=== PATIENT | male | born 1945 | race Caucasian/White ===

== ENCOUNTER 2017-04-12 13:20 | Inpatient (IN) | payer OTHER, MEDICARE ==
[~2017-04-12] VITALS: Ht 170.2 cm; Wt 83.0 kg
--- NOTE | 2017-04-12 13:50 | EMERGENCY ROOM VISIT NOTE ---
History Report prepared by Aquiles: Cesar Brennan Under the Supervision of: Dr. Toni Mantilla M.D. First contact with patient: 13:31 Chief Complaint: STROKE SYMPTOMS Stated Complaint: POSSIBLE STROKE History of Present Illness The patient is a 71 year old male who presents to the Emergency Room with complaints of persistent stroke symptoms that started 2 weeks ago. He says that he was painting a month ago, and reached for something with his left arm that he could not reach, and he felt something snap on his left shoulder. The patient states that he has had left arm and shoulder pain ever since the injury. He adds that he has had some left hand swelling. The patient notes that 2 weeks after the incident, his left arm and finger started to "not work right" . He states that he cannot even straighten his fingers on his left hand. The patient says that he was seen by Dr. Godinez of neurology, and Dr. Godinez says that nothing was wrong with the nerves, but something else may be going on due to the stroke-like symptoms. The patient notes that he was seen by an orthopedic PA-C as well for the arm. He denies any left-sided neck pain, leg issues, gait issues, facial numbness or tingling, drooling, or difficulty swallowing. The patient adds that he has had no betterment of his left arm in the past 2 weeks, but has not had worsening of symptoms either. He notes no history of left arm issues. Per the patient's , the patient is taking Prednisone currently. The patient adds that he had an x-ray of his left arm which only showed some arthritis. Source of History: patient, spouse/significant other Onset: 2 weeks ago Position: arm (left) Quality: other ("not working right" - stroke symptoms) Timing: other (persistent) Associated Symptoms: No neck pain (left sided), No numbness (facial) Note: Associated symptoms: Left arm and shoulder pain after injury a month ago. For past 2 weeks, left arm not working right, cannot straighten left fingers. Denies leg issues, gait issues, drooling or difficulty swallowing. Review of Systems See HPI for pertinent positives & negatives. A total of 10 systems reviewed and were otherwise negative. Past Medical & Surgical Medical Problems: (1) Hyperlipidemia (2) Hypertension (3) Statin intolerance Surgical Problems: (1) History of cataract surgery Family History Cancer FH: heart disease Hypertension Social History Smoking Status: Former Smoker Smokeless Tobacco Use: No Alcohol Use: occasionally Marital Status: Housing Status: lives with family Occupation Status: retired Current/Historical Medications Scheduled Cholecalciferol (Vitamin D), 100 UNIT PO DAILY Metoprolol Tartrate (Lopressor) (Lopressor), 50 MG PO BID Prednisone (Prednisone), 0 PO UD Scheduled PRN Allopurinol (Zyloprim), 300 MG PO DAILY PRN for gout flare Allergies Coded Allergies: No Known Allergies (Unverified , 04/12/17) Physical Exam Vital Signs Date Time Temp Pulse Resp B/P (MAP) Pulse Ox O2 Delivery O2 Flow Rate FiO2 04/12/17 13:57 98 Room Air 04/12/17 13:57 62 18 132/85 97 Room Air 04/12/17 13:24 36.5 65 18 159/79 99 Room Air Physical Exam GENERAL: Patient is in no acute distress. HEENT: No acute trauma, normocephalic atraumatic, mucous membranes moist, no nasal congestion, no scleral icterus. NECK: No stridor, no adenopathy, no meningismus, trachea is midline. LUNGS: Clear to auscultation bilaterally, no wheeze, no rhonchi, breath sounds equal. HEART: Irregular without any murmurs. Rate is normal. ABDOMEN: Soft, nontender, bowel sounds positive, no hernias, no peritonitis. EXTREMITIES: No cyanosis or edema, full range of motion of all the joints without pain or difficulty, no signs for acute trauma. NEUROLOGIC: No facial droop or speech slur. Awake and alert. Left upper extremity drift and cerebellar dysfunction. Patient has difficulty with extension of his wrist and fingers, and with spreading of the fingers. Flexion of the fingers seem intact. SKIN: No rash, no jaundice, no diaphoresis. Medical Decision & Procedures ER Provider Diagnostic Interpretation: Radiology results as stated below per my review and radiologist interpretation: CT SCAN OF THE BRAIN WITHOUT IV CONTRAST CLINICAL HISTORY: Strokelike symptoms. Left upper extremity weakness of several weeks' duration. COMPARISON STUDY: No priors. TECHNIQUE: Unenhanced axial CT scan of the brain is performed from the vertex to the skull base. CT DOSE: 638.56 mGycm FINDINGS: Brain parenchyma: There is edema centered in the high right frontoparietal region. There is relative sparing of the overlying cortex. No hemorrhage or midline shift is identified. There are age-related involutional changes noting moderate subcortical and periventricular microangiopathic change. No extra-axial fluid collection is seen. Ventricles, sulci, cisterns: Prominent secondary to involutional change. Intracranial vasculature: There is atherosclerotic calcification of the cavernous carotid arteries. Calvarium: Unremarkable. Sinuses and mastoids: The visualized paranasal sinuses are clear. The mastoid air cells are well pneumatized. Orbits: The bony orbits are grossly intact. There are bilateral ocular lens implants. IMPRESSION: 1. There is edema centered in the right frontoparietal white matter with relative sparing of the overlying cortex. Although this could represent a subacute infarct/ischemic change, the appearance is concerning for an underlying mass lesion. Follow-up with a contrast-enhanced MRI of the brain is recommended for further interrogation. 2. There is no hemorrhage or midline shift. Findings were discussed with Dr. Mantilla in the emergency department at the time of interpretation. Electronically signed by: Toni Wolfe M.D. 04/12/2017 2:27 PM Dictated Date/Time: 04/12/2017 2:21 PM LEFT SHOULDER MIN 2 VIEWS ROUTINE CLINICAL HISTORY: Left shoulder pain. COMPARISON: None FINDINGS: Alignment of the left shoulder is anatomic. No fracture or suspicious lesion is identified. 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 IMPRESSION: 1. No acute fracture or dislocation of the left shoulder. 2. 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 Electronically signed by: Bassem Canseco M.D. 04/12/2017 3:20 PM Dictated Date/Time: 04/12/2017 3:18 PM CHEST ONE VIEW PORTABLE CLINICAL HISTORY: Stroke mental status change COMPARISON STUDY: No previous studies for comparison. FINDINGS: The bones soft tissues and hemidiaphragms are normal. The cardiomediastinal silhouette is normal. The lungs are clear. The pulmonary vasculature is normal. IMPRESSION: Negative chest. The above report was generated using voice recognition software. It may contain grammatical, syntax or spelling errors. Electronically signed by: Kev Groves M.D. 04/12/2017 3:21 PM Dictated Date/Time: 04/12/2017 3:20 PM Laboratory Results 04/12/17 13:50 Red Blood Count 4.67, Mean Corpuscular Volume 90.1, Mean Corpuscular Hemoglobin 31.5, Mean Corpuscular Hemoglobin Concent 34.9, Mean Platelet Volume 9.9, Neutrophils (%) (Auto) 85.5, Lymphocytes (%) (Auto) 12.3, Monocytes (%) (Auto) 1.5, Eosinophils (%) (Auto) 0.2, Basophils (%) (Auto) 0.1, Neutrophils # (Auto) 10.05, Lymphocytes # (Auto) 1.45, Monocytes # (Auto) 0.18, Eosinophils # (Auto) 0.02, Basophils # (Auto) 0.01 04/12/17 13:50 Test 04/12/17 13:39 04/12/17 13:50 Urine Color YELLOW Urine Appearance CLEAR (CLEAR) Urine pH 5.0 (4.5-7.5) Urine Specific [place] 1.015 (1.000-1.030) Urine Protein NEG (NEG) Urine Glucose (UA) NEG (NEG) Urine Ketones NEG (NEG) Urine Occult Blood NEG (NEG) Urine Nitrite NEG (NEG) Urine Bilirubin NEG (NEG) Urine Urobilinogen NEG (NEG) Urine Leukocyte Esterase NEG (NEG) White Blood Count 11.76 K/uL (4.8-10.8) Red Blood Count 4.67 M/uL (4.7-6.1) Hemoglobin 14.7 g/dL (14.0-18.0) Hematocrit 42.1 % (42-52) Mean Corpuscular Volume 90.1 fL (80-100) Mean Corpuscular Hemoglobin 31.5 pg (25-34) Mean Corpuscular Hemoglobin Concent 34.9 g/dl (32-36) Platelet Count 235 K/uL (130-400) Mean Platelet Volume 9.9 fL (7.4-10.4) Neutrophils (%) (Auto) 85.5 % Lymphocytes (%) (Auto) 12.3 % Monocytes (%) (Auto) 1.5 % Eosinophils (%) (Auto) 0.2 % Basophils (%) (Auto) 0.1 % Neutrophils # (Auto) 10.05 K/uL (1.4-6.5) Lymphocytes # (Auto) 1.45 K/uL (1.2-3.4) Monocytes # (Auto) 0.18 K/uL (0.11-0.59) Eosinophils # (Auto) 0.02 K/uL (0-0.5) Basophils # (Auto) 0.01 K/uL (0-0.2) RDW Standard Deviation 42.0 fL (36.4-46.3) RDW Coefficient of Variation 12.9 % (11.5-14.5) Immature Granulocyte % (Auto) 0.4 % Immature Granulocyte # (Auto) 0.05 K/uL (0.00-0.02) Prothrombin Time 10.3 SECONDS (9.0-12.0) Prothromb Time International Ratio 1.0 (0.9-1.1) Activated Partial Thromboplast Time 32.2 SECONDS (21.0-31.0) Partial Thromboplastin Ratio 1.2 Anion Gap 9.0 mmol/L (3-11) Est Creatinine Clear Calc Drug Dose 62.3 ml/min Estimated GFR () 76.8 Estimated GFR (Non- 66.2 BUN/Creatinine Ratio 15.0 (10-20) Calcium Level 9.4 mg/dl (8.5-10.1) Magnesium Level 2.3 mg/dl (1.8-2.4) Total Creatine Kinase 232 U/L (39-308) Creatine Kinase MB 5.9 ng/ml (0.5-3.6) Creatine Kinase MB Ratio 2.5 (0-3.0) Troponin I < 0.015 ng/ml (0-0.045) Thyroid Stimulating Hormone (TSH) 0.331 uIu/ml (0.300-4.500) Laboratory results reviewed by me. Medications Administered ECG Indication: other (stroke symptoms) Rate (beats per minute): 57 Rhythm: normal sinus Findings: PAC, no acute ischemic change, other (incomplete RBBB) ED Course 1334: The patient was evaluated in room A10. A complete history and physical exam was performed. 1433: I discussed the patient with Bhakti Bro - she will evaluate the patient for further treatment. 1437: Upon reexamination the patient is resting. I discussed results and treatment plan with the patient. He verbalizes agreement and understanding. The patient will be evaluated for further management. Medical Decision Differential diagnosis includes but is not limited to nerve impingement, radial nerve palsy, stroke, brain tumor, cervical disc herniation, cervical lesion, intracranial bleeding, electrolyte imbalance. There is a mild leukocytosis, this is likely from his recent steroid use. No anemia. No significant electrolyte abnormality or kidney failure. Urinalysis does not show infection. There was no coagulopathy. Left shoulder film shows arthritis, no fracture or dislocation. Chest film does not show mediastinal widening, pneumonia or pneumothorax. Brain CT suggests a possible subacute stroke on the right or possibly even an underlying brain mass. Further imaging via MRI was recommended. The patient presents with weakness to his left arm for 2 weeks. He is clearly not a candidate for TPA. He does require a hospital stay and further workup. I discussed my findings with him. Case management has been involved. The on- call hospitalist was consulted. Medication Reconcilliation Current Medication List: was personally reviewed by me Blood Pressure Screening Patient's blood pressure: Elevated blood pressure Blood pressure disposition: Elevated BP felt to be situational Consults Time Called: 1425 Consulting Physician: Bhakti Bro Returned Call: 1433 I discussed the patient with Bhakti Bro - she will evaluate the patient for further treatment. Impression Primary Impression: Left arm weakness Additional Impression: Abnormal brain CT Scribe Attestation The scribe's documentation has been prepared under my direction and personally reviewed by me in its entirety. I confirm that the note above accurately reflects all work, treatment, procedures, and medical decision making performed by me. Departure Information Dispostion Being Evaluated By Hospitalist Referrals Manoj Godinez M.D. (MEDICINE) (PCP) Patient Instructions My [facility] Stroke History Time Last Known Well 2 weeks ago Stroke t-PA Criteria Reviewed Does NOT meet criteria for t-PA Reason t-PA Not Given Treatment not indicated Problem Qualifiers
[2017-04-12 14:02] LABS: BASO % 0.1 %; BASO ABS # 0.01 K/uL (0-0.2); COMPLETE YES; EOS % 0.2 %; HEMATOCRIT 42.1 % (42-52); IG% 0.4 %; LYMPH % 12.3 %; LYMPH ABS # 1.45 K/uL (1.2-3.4); MEAN CELL VOLUME 90.1 fL (80-100); MEAN CORPUSCULAR HEMOGLOBIN 31.5 pg (25-34); MEAN CORPUSCULAR HGB CONC 34.9 g/dl (32-36); MEAN PLATELET VOLUME 9.9 fL (7.4-10.4); MONO % 1.5 %; NEUT % 85.5 %; PLATELET COUNT 235 K/uL (130-400); RED BLOOD COUNT 4.67 M/uL (4.7-6.1); WHITE BLOOD COUNT 11.76 K/uL (4.8-10.8)
[2017-04-12 14:07] LABS: URINE APPEARANCE CLEAR (CLEAR); URINE BILIRUBIN NEG (NEG); URINE COLOR YELLOW; URINE NITRITE NEG (NEG); URINE SPECIFIC GRAVITY 1.015 (1.000-1.030); UROBILINOGEN NEG (NEG); ZZUR CULT IF INDIC CLEAN CATCH NO
[2017-04-12 14:08] LABS: MANUAL MICROSCOPIC REQUIRED? NO; REVIEW REQ? NO
[2017-04-12 14:15] LABS: PARTIAL THROMBOPLASTIN RATIO 1.2; PROTHROMBIN TIME (PATIENT) 10.3 SECONDS (9.0-12.0)
[2017-04-12 14:22] LABS: BLOOD UREA NITROGEN 17 mg/dl (7-18); CALCIUM 9.4 mg/dl (8.5-10.1); CARBON DIOXIDE 22 mmol/L (21-32); CHLORIDE 107 mmol/L (98-107); GLUCOSE 131 mg/dl (70-99); MAGNESIUM 2.3 mg/dl (1.8-2.4); POTASSIUM 4.1 mmol/L (3.5-5.1); SODIUM 138 mmol/L (136-145)
--- NOTE | 2017-04-12 14:28 | DIAGNOSTIC IMAGING REPORT ---
CT SCAN OF THE BRAIN WITHOUT IV CONTRAST CLINICAL HISTORY: Strokelike symptoms. Left upper extremity weakness of several weeks' duration. COMPARISON STUDY: No priors. TECHNIQUE: Unenhanced axial CT scan of the brain is performed from the vertex to the skull base. CT DOSE: 638.56 mGycm FINDINGS: Brain parenchyma: There is edema centered in the high right frontoparietal region. There is relative sparing of the overlying cortex. No hemorrhage or midline shift is identified. There are age-related involutional changes noting moderate subcortical and periventricular microangiopathic change. No extra-axial fluid collection is seen. Ventricles, sulci, cisterns: Prominent secondary to involutional change. Intracranial vasculature: There is atherosclerotic calcification of the cavernous carotid arteries. Calvarium: Unremarkable. Sinuses and mastoids: The visualized paranasal sinuses are clear. The mastoid air cells are well pneumatized. Orbits: The bony orbits are grossly intact. There are bilateral ocular lens implants. IMPRESSION: 1. There is edema centered in the right frontoparietal white matter with relative sparing of the overlying cortex. Although this could represent a subacute infarct/ischemic change, the appearance is concerning for an underlying mass lesion. Follow-up with a contrast-enhanced MRI of the brain is recommended for further interrogation. 2. There is no hemorrhage or midline shift. Findings were discussed with Dr. Mantilla in the emergency department at the time of interpretation. Electronically signed by: Toni Wolfe M.D. 04/12/2017 2:27 PM Dictated Date/Time: 04/12/2017 2:21 PM
[2017-04-12 14:32] LABS: CKMB/CK RATIO 2.5 (0-3.0); THYROID STIMULATING HORMONE 0.331 uIu/ml (0.300-4.500)
[2017-04-12] MEDS ORDERED: ALLO300T2 PO (14:38)
[2017-04-12] MEDS ORDERED: METO50TA16 PO (14:38)
[2017-04-12] MEDS ORDERED: PRED10TA PO (14:38)
[2017-04-12] MEDS ORDERED: ASPIRIN/ALUM/MAGNES/CAL CARB 325 MG TAB PO ONE (15:15)
--- NOTE | 2017-04-12 15:21 | DIAGNOSTIC IMAGING REPORT ---
LEFT SHOULDER MIN 2 VIEWS ROUTINE CLINICAL HISTORY: Left shoulder pain. COMPARISON: None FINDINGS: Alignment of the left shoulder is anatomic. No fracture or suspicious lesion is identified. 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 IMPRESSION: 1. No acute fracture or dislocation of the left shoulder. 2. 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 Electronically signed by: Bassem Canseco M.D. 04/12/2017 3:20 PM Dictated Date/Time: 04/12/2017 3:18 PM
--- NOTE | 2017-04-12 15:22 | DIAGNOSTIC IMAGING REPORT ---
CHEST ONE VIEW PORTABLE CLINICAL HISTORY: Stroke mental status change COMPARISON STUDY: No previous studies for comparison. FINDINGS: The bones soft tissues and hemidiaphragms are normal. The cardiomediastinal silhouette is normal. The lungs are clear. The pulmonary vasculature is normal. IMPRESSION: Negative chest. The above report was generated using voice recognition software. It may contain grammatical, syntax or spelling errors. Electronically signed by: Kev Groves M.D. 04/12/2017 3:21 PM Dictated Date/Time: 04/12/2017 3:20 PM
[2017-04-12] MEDS ORDERED: CHOL100010 PO (15:42)
[2017-04-12] MEDS ORDERED: ACETAMINOPHEN 325 MG TAB PO PRN (15:45)
[2017-04-12] MEDS ORDERED: PHARMACIST DISCHARGE MED REC CONSULT PRN (15:45)
[2017-04-12] MEDS ORDERED: ONDANSETRON INJ 2 MG/ML 2 ML VIAL IV PRN (15:45)
--- NOTE | 2017-04-12 16:28 | History and Physical ---
History & Physical Date & Time of Service: Apr 12, 2017 at 15:44 Chief Complaint: Possible Stroke Primary Care Physician: Manoj Godinez M.D. (MEDICINE) History of Present Illness Source: patient, spouse, clinic records This is a 71 y/o male with PMH of hypertension, hyperlipidemia, statin intolerance, and other problems listed below who was sent to the ED from neurology office for LUE weakness. 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 Then 2 weeks ago he developed weakness of the left upper extremity most pronounced in the fingers. Pt was seen by PCP Dr. Orta on 04/07/17 who urgently referred him to ortho. Pt was seen by Cielo Ocampo PA-C of orthopedics at [facility] who obtained an x-ray showing arthritis, no fracture. He was referred to neurology for possible EMG. Pt was seen by Dr. Godinez today, EMG was normal, exam was suggestive of potential upper motor neuron weakness, so patient was sent to ER for further workup. Denies weakness in any other extremities. Left shoulder pain is exacerbated by certain motions but nonpainful at rest. Has had swelling in the left hand which is improving on steroid taper over past 2 days, prescribed by Dr. Dangelo. Pt denies fever, chills, weight change, URI symptoms, headache, vision change, neck pain, numbness, speech or swallowing difficulty, facial droop (denied by ), dizziness/ balance difficulty, tremor, chest pain, palpitations, cough, SOB, abdominal pain, N/V/D, urinary changes, edema. Patient usually takes aspirin 81 mg daily but stopped 1 month ago as he was taking Aleve PRN for shoulder pain. Pt had prior leg pain reaction to Lipitor and a second statin ? Pravachol but does not recall the name. Denies hx of TIA, CVA, or arrhythmia. Past Medical/Surgical History Medical Problems: (1) Hyperlipidemia Status: Chronic (2) Hypertension Status: Chronic (3) Statin intolerance Status: Chronic Surgical Problems: (1) History of cataract surgery Status: Chronic Family History Cancer FH: heart disease Hypertension Stroke GRANDMOTHER Social History Smoking Status: Former Smoker (quit in 1985, prior 1.5 ppd x 20 years) Smokeless Tobacco Use: No Alcohol Use: 1-2 beers per day, 3-4 drinks on weekend (wine and vodka). last drink was a beer yesterday evening. no hx of alchohol withdrawal. Marital Status: Housing status: lives with significant other Occupational Status: retired Multi-Drug Resistant Organisms History of MDRO: No Allergies Coded Allergies: No Known Allergies (Unverified , 04/12/17) Home Medications Scheduled Cholecalciferol (Vitamin D), 100 UNIT PO DAILY Metoprolol Tartrate (Lopressor) (Lopressor), 50 MG PO BID Prednisone (Prednisone), 0 PO UD Scheduled PRN Allopurinol (Zyloprim), 300 MG PO DAILY PRN for gout flare Review of Systems Ten systems reviewed and negative except as noted in HPI. Physical Exam Vital Signs Date Time Temp Pulse Resp B/P (MAP) Pulse Ox O2 Delivery O2 Flow Rate FiO2 04/12/17 14:57 73 18 116/66 98 Room Air 04/12/17 14:50 63 04/12/17 13:57 98 Room Air 04/12/17 13:57 62 18 132/85 97 Room Air 04/12/17 13:24 36.5 65 18 159/79 99 Room Air General Appearance: WD/WN, no apparent distress, + pertinent finding (pleasnat alert 71 year old male, at bedside) Head: normocephalic, atraumatic Eyes: normal inspection, PERRL, EOMI ENT: hearing grossly normal, pharynx normal Neck: supple, no carotid bruits, trachea midline Respiratory/Chest: lungs clear, normal breath sounds, no respiratory distress, no accessory muscle use Cardiovascular: regular rate, rhythm, no murmur Abdomen/GI: normal bowel sounds, non tender, soft Extremities/Musculoskelatal: no calf tenderness, no pedal edema, + swelling ( mild L hand swelling), + pertinent finding (left shoulder- no tenderness to palpation, + decreased L shoulder ROM secondary to pain) Neurologic/Psych: alert, normal mood/affect, oriented x 3, + pertinent finding (no dysarthria, no facial sensory deficit or droop, left upper extremity decreased tomato grader strength and decreased upper arm strength, unable to keep arm extended against gravity. all other extremities without motor deficits. No sensory deficit of extremities. Finger to nose intact on the right, unable to do on the left due to decreased shoulder ROM. patellar refexes 2+ bilaterally. plantar reflex- toes are downgoing. gait is normal. ) Skin: normal color, warm/dry Diagnostics Laboratory Results Results Past 24 Hours Test 04/12/17 13:39 04/12/17 13:50 04/12/17 15:35 Range/Units Urine Color YELLOW Urine Appearance CLEAR CLEAR Urine pH 5.0 4.5-7.5 Urine Specific [place]enzie 1.015 1.000-1.030 Urine Protein NEG NEG Urine Glucose (UA) NEG NEG Urine Ketones NEG NEG Urine Occult Blood NEG NEG Urine Nitrite NEG NEG Urine Bilirubin NEG NEG Urine Urobilinogen NEG NEG Urine Leukocyte Esterase NEG NEG White Blood Count 11.76 4.8-10.8 K/uL Red Blood Count 4.67 4.7-6.1 M/uL Hemoglobin 14.7 14.0-18.0 g/dL Hematocrit 42.1 42-52 % Mean Corpuscular Volume 90.1 80-100 fL Mean Corpuscular Hemoglobin 31.5 25-34 pg Mean Corpuscular Hemoglobin Concent 34.9 32-36 g/dl Platelet Count 235 130-400 K/uL Mean Platelet Volume 9.9 7.4-10.4 fL Neutrophils (%) (Auto) 85.5 % Lymphocytes (%) (Auto) 12.3 % Monocytes (%) (Auto) 1.5 % Eosinophils (%) (Auto) 0.2 % Basophils (%) (Auto) 0.1 % Neutrophils # (Auto) 10.05 1.4-6.5 K/uL Lymphocytes # (Auto) 1.45 1.2-3.4 K/uL Monocytes # (Auto) 0.18 0.11-0.59 K/uL Eosinophils # (Auto) 0.02 0-0.5 K/uL Basophils # (Auto) 0.01 0-0.2 K/uL RDW Standard Deviation 42.0 36.4-46.3 fL RDW Coefficient of Variation 12.9 11.5-14.5 % Immature Granulocyte % (Auto) 0.4 % Immature Granulocyte # (Auto) 0.05 0.00-0.02 K/uL Prothrombin Time 10.3 9.0-12.0 SECONDS Prothromb Time International Ratio 1.0 0.9-1.1 Activated Partial Thromboplast Time 32.2 21.0-31.0 SECONDS Partial Thromboplastin Ratio 1.2 Sodium Level 138 136-145 mmol/L Potassium Level 4.1 3.5-5.1 mmol/L Chloride Level 107 98-107 mmol/L Carbon Dioxide Level 22 21-32 mmol/L Anion Gap 9.0 3-11 mmol/L Blood Urea Nitrogen 17 7-18 mg/dl Creatinine 1.10 0.60-1.40 mg/dl Est Creatinine Clear Calc Drug Dose 62.3 ml/min Estimated GFR () 76.8 Estimated GFR (Non- 66.2 BUN/Creatinine Ratio 15.0 10-20 Random Glucose 131 70-99 mg/dl Calcium Level 9.4 8.5-10.1 mg/dl Magnesium Level 2.3 1.8-2.4 mg/dl Total Creatine Kinase 232 39-308 U/L Creatine Kinase MB 5.9 0.5-3.6 ng/ml Creatine Kinase MB Ratio 2.5 0-3.0 Troponin I < 0.015 0-0.045 ng/ml Thyroid Stimulating Hormone (TSH) 0.331 0.300-4.500 uIu/ml Diagnostic Radiology LEFT SHOULDER MIN 2 VIEWS ROUTINE IMPRESSION: 1. No acute fracture or dislocation of the left shoulder. 2. 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 CT SCAN OF THE BRAIN WITHOUT IV CONTRAST IMPRESSION: 1. There is edema centered in the right frontoparietal white matter with relative sparing of the overlying cortex. Although this could represent a subacute infarct/ischemic change, the appearance is concerning for an underlying mass lesion. Follow-up with a contrast-enhanced MRI of the brain is recommended for further interrogation. 2. There is no hemorrhage or midline shift. CHEST ONE VIEW PORTABLE IMPRESSION: Negative chest. EKG sinus bradycardia with premature supraventricular complexes, LAD, incomplete RBBB, no previous EKG available, as confirmed by cardiology read Impression Assessment and Plan LEFT UPPER EXTREMITY WEAKNESS Onset 2 weeks ago; sent by Dr. Godinez after negative EEG in clinic CT head shows possible frontoparietal subacute stroke vs. tumor Workup for possible CVA- check MRI brain combo, MRA head and neck, echo with bubble study, telemetry monitoring Not taking baby aspirin x 1 month- give aspirin 325 mg now then resume ASA 81 mg daily Prior statin myalgias with Lipitor and ?Pravastatin noted- start Crestor 20 mg, patient agreeable Consult neuro- discussed with Dr. Godinez, appreciate input Neuro checks, PT, OT speech evaluations per protocol LEFT SHOULDER PAIN S/p injury 4 weeks ago Seen by ortho as outpatient, x-rays have shown arthritis but no fracture/ dislocation Consider MRI shoulder during hospitalization as recommended by neurology Hold prednisone taper for now F/u with ortho as outpatient HYPERTENSION BP is stable Continue metoprolol DYSLIPIDEMIA Start Crestor 20 mg DVT PROPHYLAXIS Lovenox SQ CODE STATUS Full code per my discussion with the patient DISPOSITION Admission telemetry Patient follows with Dr. Orta for primary care Patient seen in collaboration with Dr. Cullen. Please see her addendum. ADDENDUM: I have seen and examined the patient and agree with the assessment and plan as stated. CT scan reveals a subacute CVA-ASA 81/Crestor 20 started, neurochecks, etc. Dr. Godinez consulted and saw pt in clinic already. MRI pending overnight. There is pain with abduction of the L arm but he is able to move is somewhat with significant weakness in wrist flexion/extension and finger extension x 2 weeks. Appears to have two separate issues going on with Ortho type injury to L shoulder 4 weeks ago and then woke up with LUE weakness related to an acute stroke. Subhash, DO Level of Care Telemetry Resuscitation Status FULL RESUSCITATION VTE Prophylaxis VTE Risk Assessment Done? Y/N: Yes Risk Level: Moderate Given or contraindicated: Enoxaparin (Lovenox)SQ
[2017-04-12 16:33] VITALS: BP 136/73; PULSE 60; TEMP 36.4; O2SAT 97; Ht 170.2 cm; Wt 83.0 kg
[2017-04-12] MEDS ORDERED: ROSUVASTATIN CALCIUM 20 MG TAB PO SCH (17:00)
[2017-04-12] MEDS ORDERED: INFLUENZA ADMINISTRATION CHARGE ONE (19:00)
[2017-04-12] MEDS ORDERED: INFLUENZA VACCINE HIGH DOSE 65+ 0.5 ML SYR IM. ONE (19:00)
[2017-04-12] MEDS ORDERED: LORAZEPAM INJ 0.5 MG in SYRINGE 0.25 ML IV PRN (19:30)
[2017-04-12] MEDS ORDERED: PNEUMOCOCCAL POLYSACCHARIDES 25 MCG/0.5 ML VIAL/SYR IM. ONE (19:30)
[2017-04-12] MEDS ORDERED: PNEUMOCOCCAL ADMINISTRATION CHARGE ONE (19:30)
[2017-04-12] MEDS ORDERED: ALPRAZOLAM 0.5 MG TAB PO STA (19:34)
[2017-04-12] MEDS ORDERED: ALPRAZOLAM 0.5 MG TAB PO PRN (19:45)
[2017-04-12] MEDS: METOPROLOL TARTRATE 50 MG TAB PO SCH (20:07)
[2017-04-12 20:09] VITALS: BP 123/60; PULSE 60; O2SAT 96
[2017-04-12] MEDS ORDERED: ENOXAPARIN 40 MG/0.4 ML SYR SC SCH (21:00)
[2017-04-12 21:05] VITALS: BP 129/75; PULSE 66; TEMP 36.4; O2SAT 97
[2017-04-12 23:47] VITALS: BP 122/64; PULSE 54; TEMP 36.6; O2SAT 97
[2017-04-13] VITALS (11 sets, daily range): BP systolic 123–146; BP diastolic 65–78; PULSE 50–80; TEMP 36.3–36.5; O2SAT 95–99
[2017-04-13 04:50] LABS: ESTIMATED AVERAGE GLUCOSE 111 mg/dl; HA1C FLAG Normal (Normal)
[2017-04-13 06:17] LABS: BASO % 0.1 %; BASO ABS # 0.01 K/uL (0-0.2); COMPLETE YES; EOS % 0.4 %; HEMATOCRIT 39.7 % (42-52); IG% 0.3 %; LYMPH % 20.7 %; LYMPH ABS # 2.13 K/uL (1.2-3.4); MEAN CELL VOLUME 92.3 fL (80-100); MEAN CORPUSCULAR HEMOGLOBIN 31.4 pg (25-34); MEAN PLATELET VOLUME 9.9 fL (7.4-10.4); MONO % 9.3 %; NEUT % 69.2 %; PLATELET COUNT 207 K/uL (130-400)
[2017-04-13 06:36] LABS: BUN/CREATININE RATIO 16.8 (10-20); CALCIUM 8.5 mg/dl (8.5-10.1); CREATININE 0.99 mg/dl (0.60-1.40); POTASSIUM 4.1 mmol/L (3.5-5.1)
[2017-04-13 06:37] LABS: CHOLESTEROL/HDL RATIO 3.6
[2017-04-13] MEDS: CHOLECALCIFEROL 1000 INTER.UNIT TAB PO SCH (08:25)
[2017-04-13] MEDS: METOPROLOL TARTRATE 50 MG TAB PO SCH ×2 (08:26→20:48)
[2017-04-13] MEDS ORDERED: ROSUVASTATIN CALCIUM 20 MG TAB PO SCH (09:00)
[2017-04-13] MEDS ORDERED: ASPIRIN 81 MG ECTAB PO SCH (09:00)
--- NOTE | 2017-04-13 12:09 | Progress Note ---
Medicine Progress Note Date & Time of Visit: Apr 13, 2017 at 12:03. Subjective patient seen resting in bedside chair left arm weakness is about the same still has severe pain when abducting the left arm denies headache, any other focal neuro deficits no other symptoms Objective Last 8 Hrs Date Time Temp Pulse Resp B/P (MAP) Pulse Ox O2 Delivery O2 Flow Rate FiO2 04/13/17 11:10 36.4 54 20 146/78 (100) 98 04/13/17 08:00 Room Air 04/13/17 07:20 36.5 50 18 123/65 (84) 97 Physical Exam: General- oriented x 3, not in distress, speaks in sentences with no effort Head- atraumatic Eyes- PERRL, EOMI, anicteric ENT- oropharynx clear Neck- supple, no JVD, no adenopathy, no thyromegaly; carotids +2/2, no bruits appreciated Lungs- clear to auscultation bilaterally Heart- regular rhythm; no murmur, no gallop, normal rate Abdomen- normal bowel sounds, soft, nontender, no masses Extremities- L shoulder: no edema, erythema, warmth, tenderness poor ROM on abduction due to severe pain motor strength about 4/5 L hand: (+) moderate edema but no erythema, warmth, tenderness no pretibial edema, no calf tenderness; peripheral pulses intact Neuro- alert, oriented x 3; PERRL, EOMI; no facial palsy; no dysarthria; motor 5 /5 bilaterally except for left arm about 4/5; sensation 100% Skin- warm & dry Laboratory Results: Last 24 Hours Test 04/12/17 13:39 04/12/17 13:50 04/13/17 05:53 Urine Color YELLOW Urine Appearance CLEAR Urine pH 5.0 Urine Specific [place] 1.015 Urine Protein NEG Urine Glucose (UA) NEG Urine Ketones NEG Urine Occult Blood NEG Urine Nitrite NEG Urine Bilirubin NEG Urine Urobilinogen NEG Urine Leukocyte Esterase NEG White Blood Count 11.76 K/uL 10.30 K/uL Red Blood Count 4.67 M/uL 4.30 M/uL Hemoglobin 14.7 g/dL 13.5 g/dL Hematocrit 42.1 % 39.7 % Mean Corpuscular Volume 90.1 fL 92.3 fL Mean Corpuscular Hemoglobin 31.5 pg 31.4 pg Mean Corpuscular Hemoglobin Concent 34.9 g/dl 34.0 g/dl Platelet Count 235 K/uL 207 K/uL Mean Platelet Volume 9.9 fL 9.9 fL Neutrophils (%) (Auto) 85.5 % 69.2 % Lymphocytes (%) (Auto) 12.3 % 20.7 % Monocytes (%) (Auto) 1.5 % 9.3 % Eosinophils (%) (Auto) 0.2 % 0.4 % Basophils (%) (Auto) 0.1 % 0.1 % Neutrophils # (Auto) 10.05 K/uL 7.13 K/uL Lymphocytes # (Auto) 1.45 K/uL 2.13 K/uL Monocytes # (Auto) 0.18 K/uL 0.96 K/uL Eosinophils # (Auto) 0.02 K/uL 0.04 K/uL Basophils # (Auto) 0.01 K/uL 0.01 K/uL RDW Standard Deviation 42.0 fL 43.5 fL RDW Coefficient of Variation 12.9 % 13.0 % Immature Granulocyte % (Auto) 0.4 % 0.3 % Immature Granulocyte # (Auto) 0.05 K/uL 0.03 K/uL Prothrombin Time 10.3 SECONDS Prothromb Time International Ratio 1.0 Activated Partial Thromboplast Time 32.2 SECONDS Partial Thromboplastin Ratio 1.2 Sodium Level 138 mmol/L 142 mmol/L Potassium Level 4.1 mmol/L 4.1 mmol/L Chloride Level 107 mmol/L 108 mmol/L Carbon Dioxide Level 22 mmol/L 28 mmol/L Anion Gap 9.0 mmol/L 6.0 mmol/L Blood Urea Nitrogen 17 mg/dl 17 mg/dl Creatinine 1.10 mg/dl 0.99 mg/dl Est Creatinine Clear Calc Drug Dose 62.3 ml/min 68.2 ml/min Estimated GFR () 76.8 87.2 Estimated GFR (Non- 66.2 75.2 BUN/Creatinine Ratio 15.0 16.8 Random Glucose 131 mg/dl 92 mg/dl Estimated Average Glucose 111 mg/dl Hemoglobin A1c 5.5 % Calcium Level 9.4 mg/dl 8.5 mg/dl Magnesium Level 2.3 mg/dl Total Creatine Kinase 232 U/L Creatine Kinase MB 5.9 ng/ml Creatine Kinase MB Ratio 2.5 Troponin I < 0.015 ng/ml Thyroid Stimulating Hormone (TSH) 0.331 uIu/ml Triglycerides Level 171 mg/dl Cholesterol Level 186 mg/dl HDL Cholesterol 51 mg/dl LDL Cholesterol, Calculated 101 mg/dl VLDL Cholesterol, Calculated 34 mg/dl Cholesterol/HDL Ratio 3.6 Assessment & Plan LEFT UPPER EXTREMITY WEAKNESS, POSSIBLE ACUTE CVA VS. MASS Onset 2 weeks ago; sent by Dr. Godinez after negative EEG in clinic CT head shows possible frontoparietal subacute stroke vs. tumor -- MRI brain: pending Head and Neck: MRA pending Echo: pending -- on Aspirin Crestor started, monitor for myalgias -- Neuro consulted PT/OT LEFT SHOULDER PAIN, R/O ROTATOR CUFF TEAR S/p injury 4 weeks ago Seen by ortho as outpatient, x-rays have shown arthritis but no fracture/ dislocation -- MRI shoulder ordered Ortho consulted -- Lidoderm patch, Ice packs HYPERTENSION BP is stable Continue metoprolol DYSLIPIDEMIA Started Crestor 20 mg DVT PROPHYLAXIS Lovenox SQ CODE STATUS Full code DISPOSITION Admission telemetry Patient follows with Dr. Orta for primary care Current Inpatient Medications: Current Inpatient Medications Medications (Trade) Dose Ordered Sig/Nuria Route Start Time Stop Time Status Last Admin Dose Admin Enoxaparin Sodium (Lovenox Inj) 40 mg Q24H SC 04/12/17 21:00 05/12/17 20:59 04/12/17 20:04 40 MG Acetaminophen (Tylenol Tab) 650 mg Q4H PRN PO 04/12/17 15:45 05/12/17 15:44 Ondansetron HCl (Zofran Inj) 4 mg Q6H PRN IV 04/12/17 15:45 05/12/17 15:44 Miscellaneous Information (Pharmacist Discharge Med Rec Consult) 1 ea UD PRN N/A 04/12/17 15:45 05/12/17 15:44 Rosuvastatin Calcium (Crestor Tab) 20 mg QAM PO 04/13/17 09:00 05/13/17 08:59 04/13/17 08:25 20 MG Aspirin (Ecotrin Tab) 81 mg QAM PO 04/13/17 09:00 05/13/17 08:59 04/13/17 08:26 81 MG Cholecalciferol (Vitamin D Tab) 1,000 inter.unit DAILY PO 04/13/17 09:00 05/13/17 08:59 04/13/17 08:25 1,000 INTER.UNIT Metoprolol Tartrate (Lopressor Tab) 50 mg BID PO 04/12/17 21:00 05/12/17 20:59 04/12/17 20:07 50 MG
[2017-04-13] MEDS ORDERED: LIDODERM (LIDOCAINE) PATCH 5% TD ONE (12:30)
[2017-04-13] MEDS ORDERED: ALPRAZOLAM 0.5 MG TAB ONE (13:28)
[2017-04-13] MEDS ORDERED: ALPRAZOLAM 0.5 MG TAB PO SCH (13:45)
--- NOTE | 2017-04-13 14:37 | Neurology Consultation ---
Neurology Consultation Date of Consultation: Apr 13, 2017. Attending Physician: Neftali Rahman MD Primary Care Physician: Manoj Godinez M.D. (MEDICINE) Reason for Consultation: stroke vs underlying mass, with left shoulder pain History of Present Illness Source: patient, spouse, hospital records Ashvin is a 71 year old male with PMH -HTN, DL, statin intolerance he was sent to the ED from our neurology office for LUE weakness. 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 About 2 weeks ago he developed weakness of the left upper extremity most pronounced in the fingers.He was sent to orthopedics and seen by Cielo Ocampo PA-C of orthopedics at [facility] who obtained an x-ray showing arthritis, no fracture. He was referred to neurology and his EMG was normal, exam was suggestive of potential upper motor neuron weakness. Left shoulder pain is exacerbated by certain motions but nonpainful at rest. Has had swelling in the left hand which is improving on steroid taper over past 2 days, prescribed by Dr. Orta. He states he has been up and walking the halls with am with no difficulties. he is currently waiting to go to the MRI. denies CP, SOB, abdominal pain, one sided weakness, numbness, tingling, facial droop, slurred speech, vision changes, falls, bowel or bladder symptoms. Past Medical/Surgical History Medical Problems: (1) Abnormal brain CT Status: Acute (2) Left arm weakness Status: Acute Social History Smokeless Tobacco Use: No Alcohol Use: 1-2 beers per day, 3-4 drinks on weekend (wine and vodka). last drink was a beer yesterday evening. no hx of alchohol withdrawal. Marital Status: Housing Status: lives with family Occupation Status: retired Allergies Coded Allergies: No Known Allergies (Unverified , 04/12/17) Current Inpatient Medications Current Inpatient Medications Medications (Trade) Dose Ordered Sig/Nuria Route Start Time Stop Time Status Last Admin Dose Admin Enoxaparin Sodium (Lovenox Inj) 40 mg Q24H SC 04/12/17 21:00 05/12/17 20:59 04/12/17 20:04 40 MG Acetaminophen (Tylenol Tab) 650 mg Q4H PRN PO 04/12/17 15:45 05/12/17 15:44 Ondansetron HCl (Zofran Inj) 4 mg Q6H PRN IV 04/12/17 15:45 05/12/17 15:44 Miscellaneous Information (Pharmacist Discharge Med Rec Consult) 1 ea UD PRN N/A 04/12/17 15:45 05/12/17 15:44 Rosuvastatin Calcium (Crestor Tab) 20 mg QAM PO 04/13/17 09:00 05/13/17 08:59 04/13/17 08:25 20 MG Aspirin (Ecotrin Tab) 81 mg QAM PO 04/13/17 09:00 05/13/17 08:59 04/13/17 08:26 81 MG Cholecalciferol (Vitamin D Tab) 1,000 inter.unit DAILY PO 04/13/17 09:00 05/13/17 08:59 04/13/17 08:25 1,000 INTER.UNIT Metoprolol Tartrate (Lopressor Tab) 50 mg BID PO 04/12/17 21:00 05/12/17 20:59 04/12/17 20:07 50 MG Lidocaine (Lidoderm Patch 5%) 1 patch QAM TD 04/14/17 09:00 05/14/17 08:59 Miscellaneous (Remove Lidoderm Patch) 1 ea DAILY@21 N/A 04/13/17 23:00 05/13/17 22:59 Alprazolam (Xanax Tab) 0.5 mg TODAY@1345 PO 04/13/17 13:45 04/13/17 18:00 04/13/17 14:07 0.5 MG Physical Exam Vital Signs (Past 24 Hrs): Date Time Temp Pulse Resp B/P (MAP) Pulse Ox O2 Delivery O2 Flow Rate FiO2 04/13/17 14:12 98 Room Air 04/13/17 11:10 36.4 54 20 146/78 (100) 98 04/13/17 08:00 Room Air 04/13/17 07:20 36.5 50 18 123/65 (84) 97 04/13/17 04:00 Room Air 04/13/17 04:00 36.3 52 16 134/72 (92) 99 Room Air 04/13/17 00:00 Room Air 04/12/17 23:47 36.6 54 18 122/64 (83) 97 Room Air 04/12/17 21:05 36.4 66 20 129/75 (93) 97 Room Air 04/12/17 20:09 60 123/60 (81) 96 Room Air 04/12/17 20:00 Room Air 04/12/17 16:33 36.4 60 18 136/73 97 Room Air 04/12/17 16:20 77 18 98 04/12/17 14:57 73 18 116/66 98 Room Air 04/12/17 14:50 63 Physical Exam: Constitutional: appearance nourished, healthy and normal Ears, Nose, Mouth and Throat: mucous membranes moist, no injection and skin normal, eyes normal Cardiovascular: normal S-1 and S-2 and regular rate and rhythm Respiratory: clear to auscultation (CTA) and no rales, rhonchi or wheeze Musculoskeletal: no peripheral edema and good distal pulses, left arm loss of tone, digits curled to palm Skin: no stigmata of neurocutaneous disease noted and normal and intact Eyes: extraocular muscles intact (EOMI) and pupils equal, round and reactive to light (PERRL) NEUROLOGIC EXAMINATION: Mental status: Alert and interactive Oriented to full date and location, president Shaka, 2017, [facility], lives in [place], says no ifs ands or buts, can close eyes stick out tongue point to ceiling with right hand Oriented to person Speech fluent with no evidence of aphasia Cranial Nerves smile eye brow raise symmetric, tongue midline Reflexes: Deep tendon reflexes were symmetrical and graded 2/5. Sensory: light sensation Coordination: finger to nose Gait/Stance: Posture normal. Gait normal: with steady with steps, base, turning, tandem gait. Motor: Negative for pronator drift of out stretched arms with eyes closed. Strength: biceps triceps hand sound installation worker right 5/5, bicep triceps 4/5, hand sound installation worker 5/5, deltoids 2 /5, hip flex 5/5 bilaterally Laboratory Results Past 24 Hours: 04/13/17 05:53 Red Blood Count 4.30, Mean Corpuscular Volume 92.3, Mean Corpuscular Hemoglobin 31.4, Mean Corpuscular Hemoglobin Concent 34.0, Mean Platelet Volume 9.9, Neutrophils (%) (Auto) 69.2, Lymphocytes (%) (Auto) 20.7, Monocytes (%) (Auto) 9.3, Eosinophils (%) (Auto) 0.4, Basophils (%) (Auto) 0.1, Neutrophils # (Auto) 7.13, Lymphocytes # (Auto) 2.13, Monocytes # (Auto) 0.96, Eosinophils # (Auto) 0.04, Basophils # (Auto) 0.01 04/13/17 05:53 Test 04/13/17 05:53 White Blood Count 10.30 K/uL (4.8-10.8) Red Blood Count 4.30 M/uL (4.7-6.1) Hemoglobin 13.5 g/dL (14.0-18.0) Hematocrit 39.7 % (42-52) Mean Corpuscular Volume 92.3 fL (80-100) Mean Corpuscular Hemoglobin 31.4 pg (25-34) Mean Corpuscular Hemoglobin Concent 34.0 g/dl (32-36) Platelet Count 207 K/uL (130-400) Mean Platelet Volume 9.9 fL (7.4-10.4) Neutrophils (%) (Auto) 69.2 % Lymphocytes (%) (Auto) 20.7 % Monocytes (%) (Auto) 9.3 % Eosinophils (%) (Auto) 0.4 % Basophils (%) (Auto) 0.1 % Neutrophils # (Auto) 7.13 K/uL (1.4-6.5) Lymphocytes # (Auto) 2.13 K/uL (1.2-3.4) Monocytes # (Auto) 0.96 K/uL (0.11-0.59) Eosinophils # (Auto) 0.04 K/uL (0-0.5) Basophils # (Auto) 0.01 K/uL (0-0.2) RDW Standard Deviation 43.5 fL (36.4-46.3) RDW Coefficient of Variation 13.0 % (11.5-14.5) Immature Granulocyte % (Auto) 0.3 % Immature Granulocyte # (Auto) 0.03 K/uL (0.00-0.02) Anion Gap 6.0 mmol/L (3-11) Est Creatinine Clear Calc Drug Dose 68.2 ml/min Estimated GFR () 87.2 Estimated GFR (Non- 75.2 BUN/Creatinine Ratio 16.8 (10-20) Calcium Level 8.5 mg/dl (8.5-10.1) Triglycerides Level 171 mg/dl (0-150) Cholesterol Level 186 mg/dl (0-200) HDL Cholesterol 51 mg/dl LDL Cholesterol, Calculated 101 mg/dl VLDL Cholesterol, Calculated 34 mg/dl Cholesterol/HDL Ratio 3.[address] head-There is edema centered in the right frontoparietal white matter with relative sparing of the overlying cortex. Although this could represent a subacute infarct/ischemic change, the appearance is concerning for an underlying mass lesion. Follow-up with a contrast-enhanced MRI of the brain is recommended for further interrogation. There is no hemorrhage or midline shift. Impression 71 year old male finding on CT head and left arm weakness and pain. Plan 1. MRI brain and MRA head and MRI left shoulder -pending 2. PT/OT for discharge needs 3. orthopedics for shoulder issues 4. further recommendations once MRI reports and imaging is available I have seen and discussed above patient with Dr Manoj Godinez, neurology I know this man from an outpatient visit and emg yesterday One month of left shoulder pain and now two weeks of left arm clumsiness and weakness and swelling with a pseudo left wrist drop but on upper motor neuron monoparesis on exam lucita noncontrast ct suggestive of either a subacute cva or a mass with terence exam unchanged and left shoulder still painful but mri and mra are pending will follow up tomorrwo but clinically continue to favor a cva over mass lesion in light of the acute history but this has been obscured to some degree by the shoulder pain and suspect an element of a nondominant hemispheric neglect. Will follow up tomorrow and review imaging rowena Godinez MD
--- NOTE | 2017-04-13 15:48 | DIAGNOSTIC IMAGING REPORT ---
MR ANGIOGRAM OF THE BRAIN CLINICAL HISTORY: Left arm weakness. COMPARISON STUDY: CT of the brain dated 04/12/2017. TECHNIQUE: 3-D [id number] MR angiography of the intracranial circulation is performed. 3-D tumble views are created and assessed. IV contrast was not administered for this examination. FINDINGS: The internal carotid arteries are widely patent bilaterally, as are the anterior and middle cerebral arteries. The vertebrobasilar system and posterior cerebral arteries are widely patent. The vertebral arteries are codominant. There is no aneurysm, high-grade stenosis, or focal vessel cutoff seen throughout the intracranial circulation. IMPRESSION: Unremarkable MR angiogram of the brain. Electronically signed by: Toni Wolfe M.D. 04/13/2017 3:46 PM Dictated Date/Time: 04/13/2017 3:44 PM
--- NOTE | 2017-04-13 16:09 | DIAGNOSTIC IMAGING REPORT ---
BRAIN COMBO CLINICAL HISTORY: 71 years-old Male presenting with stroke vs. mass, left arm weakness. TECHNIQUE: Multisequence, multiplanar MR imaging of the brain was performed before and after the administration of intravenous contrast. IV contrast: 8.5 mL of Gadavist. COMPARISON: CT head from 04/12/2017. FINDINGS: Ventricles and sulci normal in size. Intra-axial T1 hypointense, T2 hyperintense mass centered in the subcortical white matter of the right frontal lobe along the precentral gyrus with extensive surrounding T2/FLAIR hyperintensity in the white matter minimally extending into the right parietal lobe. The mass demonstrates primarily peripheral enhancement with minimal heterogeneous central enhancement. The mass primarily demonstrates facilitated diffusion with a rim of diffusion restriction corresponding to the enhancing component. The enhancing portion measures 2.3 x 2.4 x 1.9 cm. A diminutive, linear, intrinsically T1 hyperintense component tracks towards the ependymal surface of the adjacent trigone of the right lateral ventricle but does not reach the ventricle. No additional lesion is noted. Additionally, scattered areas of T2/FLAIR hyperintensity, nonspecific but likely chronic small vessel ischemic change. No hemorrhage. No extra-axial fluid collection. T2 skull base flow voids preserved. Bone marrow signal intensity within the calvarium within normal limits. Bilateral cantwell lenses of the globes are absent. IMPRESSION: 1. Findings consistent with intra-axial mass centered in the right frontal subcortical white matter in the precentral gyrus. Extensive surrounding signal abnormality may either represent reactive vasogenic edema in the setting of a metastatic lesion or tumor infiltration in the setting of a primary DRUGLESS PHYSICIAN lesion, which are the two primary diagnostic considerations. 2. Chronic small vessel ischemic change. Electronically signed by: Jose Guaman M.D. 04/13/2017 4:08 PM Dictated Date/Time: 04/13/2017 3:57 PM
--- NOTE | 2017-04-13 16:11 | DIAGNOSTIC IMAGING REPORT ---
NECK MRA HISTORY: Stroke TECHNIQUE: Ljve-nh-trvsyl and gadolinium-enhanced MRA of the neck was performed both before and after the intravenous administration of contrast. All measurements were calculated based on NASCET criteria. The patient was administered 8.5 cc of intravenous Gadavist. COMPARISON STUDY: None. FINDINGS: The aortic arch and proximal great vessels are widely patent. There is no significant stenosis, occlusion, or dissection identified within the bilateral common carotid, or internal carotid arteries. There is a 50% diameter stenosis of the left vertebral origin. IMPRESSION: 1. 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 No evidence of hemodynamically significant carotid artery stenosis Electronically signed by: Jase Gray M.D. 04/13/2017 4:10 PM Dictated Date/Time: 04/13/2017 4:07 PM
[2017-04-13] MEDS ORDERED: OPTIRAY 320 IV PRN (17:00)
--- NOTE | 2017-04-13 17:31 | Orthopedic Consultation ---
Orthopedic Consultation Date of Consultation: Apr 13, 2017. Attending Physician: Neftali Rahman MD Reason for Consultation: Left shoulder injury/pain History of Present Illness 71-year-old male who presents with complaints of left shoulder pain 4 weeks. He states that he was painting and felt a pop in his left shoulder and subsequently was unable to raise his arm. The pain is diffuse in the left shoulder and is worse with range of motion activities. He denies any prior injury to his left shoulder or surgery. He denies any numbness or tingling in his hand. The patient states that 2 weeks after the left shoulder injury he started to develop weakness and inability to move his fingers hand and wrist. He describes the sensation as "heavy feeling" of the arm. He denies any trauma to that left upper extremity. The patient did see an orthopedic PA at [facility] [place] and an x-ray was taken. 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 The patient was then referred to neurology and an EMG was performed on the day of admission. Exam suggestive of potential upper motor neuron weakness and the patient was subsequently admitted to the hospital. At rest the patient is comfortable. Past Medical/Surgical History Medical Problems: (1) Abnormal brain CT Status: Acute (2) Left arm weakness Status: Acute Family History Cancer FH: heart disease Hypertension Stroke GRANDMOTHER Social History Smoking Status: Former Smoker Smokeless Tobacco Use: No Alcohol Use: 1-2 beers per day, 3-4 drinks on weekend (wine and vodka). last drink was a beer yesterday evening. no hx of alchohol withdrawal. Marital Status: Housing Status: lives with family Occupation Status: retired Allergies Coded Allergies: No Known Allergies (Unverified , 04/12/17) Home Medications Scheduled Cholecalciferol (Vitamin D), 100 UNIT PO DAILY Metoprolol Tartrate (Lopressor) (Lopressor), 50 MG PO BID Prednisone (Prednisone), 0 PO UD Scheduled PRN Allopurinol (Zyloprim), 300 MG PO DAILY PRN for gout flare Current Inpatient Medications Current Inpatient Medications Medications (Trade) Dose Ordered Sig/Nuria Route Start Time Stop Time Status Last Admin Dose Admin Acetaminophen (Tylenol Tab) 650 mg Q4H PRN PO 04/12/17 15:45 05/12/17 15:44 Ondansetron HCl (Zofran Inj) 4 mg Q6H PRN IV 04/12/17 15:45 05/12/17 15:44 Miscellaneous Information (Pharmacist Discharge Med Rec Consult) 1 ea UD PRN N/A 04/12/17 15:45 05/12/17 15:44 Cholecalciferol (Vitamin D Tab) 1,000 inter.unit DAILY PO 04/13/17 09:00 05/13/17 08:59 04/13/17 08:25 1,000 INTER.UNIT Metoprolol Tartrate (Lopressor Tab) 50 mg BID PO 04/12/17 21:00 05/12/17 20:59 04/12/17 20:07 50 MG Lidocaine (Lidoderm Patch 5%) 1 patch QAM TD 04/14/17 09:00 05/14/17 08:59 Miscellaneous (Remove Lidoderm Patch) 1 ea DAILY@21 N/A 04/13/17 23:00 05/13/17 22:59 Alprazolam (Xanax Tab) 0.5 mg TODAY@1345 PO 04/13/17 13:45 04/13/17 18:00 04/13/17 14:07 0.5 MG Dexamethasone (Decadron Tab) 4 mg QID PO 04/13/17 17:00 05/13/17 16:59 UNV Sodium Chloride 1,000 ml @ 100 mls/hr Q10H IV 04/13/17 16:45 05/13/17 16:44 UNV Review of Systems The review of systems are negative with the exception of those listed in the history of present illness Physical Exam Date Time Temp Pulse Resp B/P (MAP) Pulse Ox O2 Delivery O2 Flow Rate FiO2 04/13/17 16:16 36.4 58 16 128/70 (89) 97 Room Air 04/13/17 14:12 98 Room Air 04/13/17 12:30 36.3 69 16 132/67 (88) 98 Room Air 04/13/17 11:10 36.4 54 20 146/78 (100) 98 04/13/17 08:00 Room Air 04/13/17 07:20 36.5 50 18 123/65 (84) 97 04/13/17 04:00 Room Air 04/13/17 04:00 36.3 52 16 134/72 (92) 99 Room Air 04/13/17 00:00 Room Air 04/12/17 23:47 36.6 54 18 122/64 (83) 97 Room Air 04/12/17 21:05 36.4 66 20 129/75 (93) 97 Room Air 04/12/17 20:09 60 123/60 (81) 96 Room Air 04/12/17 20:00 Room Air Alert and oriented 3 in no apparent distress Cervical neck is painless to full range of motion Spurling's test negative RUE NVSI +EHL/FHL/TA/GS SILT Grossly, CR< 2 seconds, +2 radial pulse, compartments soft, 5/5 motor strength, reflexes intact LUE Sensory intact grossly R/M/U nerves. + 2 Radial pulse, reflexes intact AROM FF: 80 degrees, Abd 80 degrees with pain, Ext Rot: 10 degrees PROM FF: 80 degrees, Abd 80 degrees with pain, Ext Rot: 10 degrees Decreases motor strength grossly: 4/5 shoulder flexion/abduction, 4/5 elbow flexion, 3/5 child and adolescent psychologist strength, 2/5 supination, 3/5 prontation, 1/5 wrist/finger extension +edema left hand, no errythema, compartments soft NT Laboratory Results Last 24 Hours Test 04/13/17 05:53 White Blood Count 10.30 K/uL Red Blood Count 4.30 M/uL Hemoglobin 13.5 g/dL Hematocrit 39.7 % Mean Corpuscular Volume 92.3 fL Mean Corpuscular Hemoglobin 31.4 pg Mean Corpuscular Hemoglobin Concent 34.0 g/dl Platelet Count 207 K/uL Mean Platelet Volume 9.9 fL Neutrophils (%) (Auto) 69.2 % Lymphocytes (%) (Auto) 20.7 % Monocytes (%) (Auto) 9.3 % Eosinophils (%) (Auto) 0.4 % Basophils (%) (Auto) 0.1 % Neutrophils # (Auto) 7.13 K/uL Lymphocytes # (Auto) 2.13 K/uL Monocytes # (Auto) 0.96 K/uL Eosinophils # (Auto) 0.04 K/uL Basophils # (Auto) 0.01 K/uL RDW Standard Deviation 43.5 fL RDW Coefficient of Variation 13.0 % Immature Granulocyte % (Auto) 0.3 % Immature Granulocyte # (Auto) 0.03 K/uL Sodium Level 142 mmol/L Potassium Level 4.1 mmol/L Chloride Level 108 mmol/L Carbon Dioxide Level 28 mmol/L Anion Gap 6.0 mmol/L Blood Urea Nitrogen 17 mg/dl Creatinine 0.99 mg/dl Est Creatinine Clear Calc Drug Dose 68.2 ml/min Estimated GFR () 87.2 Estimated GFR (Non- 75.2 BUN/Creatinine Ratio 16.8 Random Glucose 92 mg/dl Calcium Level 8.5 mg/dl Triglycerides Level 171 mg/dl Cholesterol Level 186 mg/dl HDL Cholesterol 51 mg/dl LDL Cholesterol, Calculated 101 mg/dl VLDL Cholesterol, Calculated 34 mg/dl Cholesterol/HDL Ratio 3.6 Assessment & Plan 71 yo Male with LUE weakness, Left shoulder pain, stiffness -I am concerned that Mr Servin's shoulder pain and dysfunction is not limited to shoulder pathology alone due to the delayed presentation and loss of significant motor function in his hand/wrist/forearm. I suspect he may have sustained a rotator cuff injury 4 weeks prior based on his history and subsequent loss of shoulder motion however this does not explain the loss of strength and paralysis of his hand/wrist/forearm while maintaining intact sensation throughout. I agree with MRI brain/shoulder, would also consider MRI cervical spine. -Elevate LUE to help with edema -Sling for comfort -Aggressive PT/OT to maintain ROM of the fingers, wrist, elbow, shoulder. 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
--- NOTE | 2017-04-13 17:50 | DIAGNOSTIC IMAGING REPORT ---
CT OF THE CHEST WITH IV CONTRAST CLINICAL HISTORY: Intracranial mass. Evaluate for primary malignancy. COMPARISON STUDY: None TECHNIQUE: Following the IV administration of 117 mL of Optiray-320, CT of the thorax was performed from the thoracic inlet to the lung bases. Images are reviewed in the axial, sagittal, and coronal planes. IV contrast was administered without complication. A dose lowering technique was utilized adhering to the principles of ALARA. CT DOSE: 1112.76 mGy.cm FINDINGS: Thyroid: Imaged portions of the thyroid gland are normal in appearance. Thoracic aorta: The ascending thoracic aorta measures 37 mm in diameter. Pulmonary vasculature: The pulmonary trunk is normal in caliber. There are no central filling defects identified to suggest pulmonary embolus. Note that this examination was not protocoled for the evaluation of pulmonary emboli. HEART: The heart is borderline enlarged. There are coronary artery calcifications. Lungs and pleural spaces: No pleural effusions are visualized. Evaluation the lung parenchyma is limited due to respiratory motion artifact. There is no focal pulmonary consolidation. There are no suspicious pulmonary masses. There is a small noncalcified pleural plaque within the left upper lobe region. There is a calcified right upper lobe granuloma Mediastinum: There is no mediastinal lymphadenopathy. Ольга: Clear. Axilla: Clear. Upper abdomen: There are several hepatic hypodensities largest of which is located within the left lobe measuring 25 mm. These would be described separately in a CT scan of the abdomen and pelvis. Skeletal structures: There are no lytic or blastic osseous lesions. IMPRESSION: 1. No acute intrathoracic findings. No evidence of intrathoracic malignancy. No evidence of pathologic adenopathy. Electronically signed by: Jase Gray M.D. 04/13/2017 5:49 PM Dictated Date/Time: 04/13/2017 5:44 PM
--- NOTE | 2017-04-13 17:51 | DIAGNOSTIC IMAGING REPORT ---
ABD/PELVIS IV CONTRAST ONLY CLINICAL HISTORY: 71 years-old Male presenting with brain mass, r/o primary malignancy. TECHNIQUE: Multidetector CT of the abdomen and pelvis was performed after the administration of intravenous contrast. IV contrast: 117 mL of Optiray 320. A dose lowering technique was used consistent with the principles of ALARA (as low as reasonably achievable). COMPARISON: None. CT DOSE (mGy.cm): The estimated cumulative dose is 1112.76. 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 Lung bases: Minimal dependent changes likely atelectasis. Heart top normal in size. No pericardial or pleural effusion. Liver: Normal morphology. Scattered well-defined hypodensities, the largest in the left hepatic lobe measuring 2.6 cm, indeterminate but likely hepatic cysts. Patent hepatic vasculature. Biliary: No intrahepatic or extrahepatic biliary ductal dilatation. Possible adenomyomatosis of the gallbladder fundus. Pancreas: Mild parenchymal atrophy. Spleen: Parenchymal calcification suggest prior granulomatous infection. Adrenal glands: Normal. Kidneys and ureters: Normal. No hydronephrosis. Bladder: Normal. Pelvic organs: Prostate enlargement likely secondary to benign prostatic hyperplasia. Bowel: Normal appendix. No gross evidence of mass lesion allowing for the absence of oral contrast. No bowel obstruction. Peritoneal cavity: No free fluid or intraperitoneal gas. Vasculature: Atherosclerosis of the normal caliber abdominal aorta. IVC patent. Lymph nodes: No enlarged lymph nodes in the abdomen or pelvis. Abdominal wall: Normal. Musculoskeletal: Degenerative changes of the spine. Scattered bone islands noted in the lumbar spine. An indeterminate tiny osseous lesion is noted in the L4 vertebral body along the right aspect (series 7 image 243). IMPRESSION: 1. No evidence of intra-abdominal malignancy. No lymphadenopathy. 2. Scattered low densities in the liver are well-defined and most consistent with hepatic cysts. 3. Indeterminate tiny osseous lesion in the L4 vertebral body. No convincing evidence of osseous metastatic disease. Electronically signed by: Jose Guaman M.D. 04/13/2017 5:50 PM Dictated Date/Time: 04/13/2017 5:43 PM
[2017-04-13] MEDS: SODIUM CHLORIDE 0.9% 1000ML 1,000 ML IV SCH (18:01)
[2017-04-13] MEDS: DEXAMETHASONE 4 MG TAB PO SCH ×2 (18:03→20:48)
--- NOTE | 2017-04-13 18:35 | CONSULTATION REPORT ---
DATE OF CONSULTATION: 04/13/2017 SUBJECTIVE: I finally saw Ashvin today. When I visited his room, he was in the MRI scan having only had a noncontrast CAT scan. I admitted this man yesterday to the hospital from my office where he was sent for an electrodiagnostic study for a painful, swollen and clumsy left arm with a painful left shoulder all emerging in the course of the past month. There were no other symptoms. There was no headache, no other issues. OBJECTIVE: On exam, I felt that he might have a radial nerve palsy, but there were elements to suggest an upper motor neuron lesion and sent him to the ER for evalutaion DIAGNOSTIC DATA: An EMG was negative. He was admitted through the ER after a CT scan showed what looked like a possible mass lesion versus subcortical infarct and indeed clinically I thought he probably had a stroke but the MRI scan has shown a mass with surrounding vasogenic edema in the right frontal lobe. IMPRESSION AND PLAN: In light of this, he probably needs a workup for an underlying primary cancer source. The shoulder, probably needs evaluated as well WITH an MRI and I would recommend a CT of the chest, abdomen and pelvis and MRI of the shoulder, treating him with Decadron and I am going to check an EEG. I did discuss this with his primary care physician Dr Bradley. He eventually might need referred off for neurosurgical opinion, but I think we may as well do the workup for underlying primary carcinoma here first as we may find evidence for a primary lesion whose tissue type could be established in a relatively "noninvasive" fashion rather than via a craniotomy. He may end up with a craniotomy anyway as there appears to be a sloitary mass in a nondominant hemisphere and surgical resection may be the treatiment of choice in this setting even if there is a primary carcinoma with few other metastatic deposits elsewhere and if it would be a favorable tissue type amenable to systemic chemotherapy. Whatever the case we will proceed with the workup here first MTDD
[2017-04-14] VITALS: BP 128/68; PULSE 56; TEMP 36.5; O2SAT 95
[2017-04-14] MEDS: SODIUM CHLORIDE 0.9% 1000ML 1,000 ML IV SCH ×2 (02:30→12:45)
[2017-04-14 04:00] VITALS: BP 155/87; PULSE 61; TEMP 36.3; O2SAT 96
[2017-04-14 06:46] LABS: BASO % 0.1 %; BASO ABS # 0.01 K/uL (0-0.2); COMPLETE YES; HEMATOCRIT 42.6 % (42-52); IG% 0.3 %; LYMPH % 9.3 %; LYMPH ABS # 0.98 K/uL (1.2-3.4); MEAN CELL VOLUME 90.3 fL (80-100); MEAN CORPUSCULAR HEMOGLOBIN 31.4 pg (25-34); MEAN CORPUSCULAR HGB CONC 34.7 g/dl (32-36); MEAN PLATELET VOLUME 9.9 fL (7.4-10.4); MONO % 1.2 %; NEUT % 89.1 %; PLATELET COUNT 210 K/uL (130-400); RED BLOOD COUNT 4.72 M/uL (4.7-6.1); WHITE BLOOD COUNT 10.57 K/uL (4.8-10.8)
[2017-04-14 07:04] VITALS: BP 117/69; PULSE 56; TEMP 36.4; O2SAT 97
[2017-04-14 07:09] LABS: BUN/CREATININE RATIO 22.1 (10-20); CALCIUM 8.3 mg/dl (8.5-10.1); CREATININE 0.82 mg/dl (0.60-1.40); POTASSIUM 4.1 mmol/L (3.5-5.1)
[2017-04-14] MEDS: CHOLECALCIFEROL 1000 INTER.UNIT TAB PO SCH (08:17)
[2017-04-14] MEDS: METOPROLOL TARTRATE 50 MG TAB PO SCH (08:17)
[2017-04-14] MEDS: DEXAMETHASONE 4 MG TAB PO SCH ×3 (08:17→17:42)
[2017-04-14] MEDS ORDERED: LIDODERM (LIDOCAINE) PATCH 5% TD SCH (09:00)
[2017-04-14] MEDS ORDERED: ALPRAZOLAM 0.5 MG TAB PO SCH (10:15)
[2017-04-14 11:18] VITALS: BP 123/63; PULSE 72; TEMP 36.5; O2SAT 96
--- NOTE | 2017-04-14 12:26 | Neurology Progress Notes ---
Neurology Progress Note Date of Service Apr 14, 2017. Taran Lock is a 71 year old male with PMH -HTN, DL, statin intolerance he was sent to the ED from our neurology office for LUE weakness. 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 About 2 weeks ago he developed weakness of the left upper extremity most pronounced in the fingers.He was sent to orthopedics and seen by Cielo Ocampo PA-C of orthopedics at [facility] who obtained an x-ray showing arthritis, no fracture. He was referred to neurology and his EMG was normal, exam was suggestive of potential upper motor neuron weakness. Left shoulder pain is exacerbated by certain motions but nonpainful at rest. Has had swelling in the left hand which is improving on steroid taper over past 2 days, prescribed by Dr. Orta. He states he has been up and walking the halls with am with no difficulties. he is currently waiting to go to the MRI. Today the shoulder pain and weakness is about the same. he is aware of the tumor that was seen on the MRI. The shoulder MRI is pending this after noon. denies CP, SOB, abdominal pain, one sided weakness, numbness, tingling, facial droop, slurred speech, vision changes, falls, bowel or bladder symptoms. Objective Date Time Temp Pulse Resp B/P (MAP) Pulse Ox O2 Delivery O2 Flow Rate FiO2 04/14/17 11:18 36.5 72 96 123/63 (83) 96 Room Air 04/14/17 08:20 Room Air 04/14/17 07:04 36.4 56 18 117/69 (85) 97 Room Air 04/14/17 04:00 Room Air 04/14/17 04:00 36.3 61 18 155/87 (109) 96 Room Air 04/14/17 04:00 36.3 61 18 155/87 (109) 96 Room Air 04/14/17 00:00 36.5 56 18 128/68 (88) 95 Room Air 04/14/17 00:00 Room Air 04/13/17 22:36 36.5 56 18 128/68 (88) 95 Room Air 04/13/17 20:47 80 136/71 (92) 04/13/17 20:24 36.4 79 18 127/68 (87) 98 Room Air 04/13/17 20:00 98 Room Air 04/13/17 16:16 36.4 58 16 128/70 (89) 97 Room Air 04/13/17 16:00 98 Room Air 04/13/17 14:12 98 Room Air 04/13/17 12:30 36.3 69 16 132/67 (88) 98 Room Air Last 24 Hours Test 04/14/17 06:16 White Blood Count 10.57 K/uL Red Blood Count 4.72 M/uL Hemoglobin 14.8 g/dL Hematocrit 42.6 % Mean Corpuscular Volume 90.3 fL Mean Corpuscular Hemoglobin 31.4 pg Mean Corpuscular Hemoglobin Concent 34.7 g/dl Platelet Count 210 K/uL Mean Platelet Volume 9.9 fL Neutrophils (%) (Auto) 89.1 % Lymphocytes (%) (Auto) 9.3 % Monocytes (%) (Auto) 1.2 % Eosinophils (%) (Auto) 0.0 % Basophils (%) (Auto) 0.1 % Neutrophils # (Auto) 9.42 K/uL Lymphocytes # (Auto) 0.98 K/uL Monocytes # (Auto) 0.13 K/uL Eosinophils # (Auto) 0.00 K/uL Basophils # (Auto) 0.01 K/uL RDW Standard Deviation 42.1 fL RDW Coefficient of Variation 12.7 % Immature Granulocyte % (Auto) 0.3 % Immature Granulocyte # (Auto) 0.03 K/uL Sodium Level 139 mmol/L Potassium Level 4.1 mmol/L Chloride Level 109 mmol/L Carbon Dioxide Level 23 mmol/L Anion Gap 7.0 mmol/L Blood Urea Nitrogen 18 mg/dl Creatinine 0.82 mg/dl Est Creatinine Clear Calc Drug Dose 82.7 ml/min Estimated GFR () 101.7 Estimated GFR (Non- 87.7 BUN/Creatinine Ratio 22.1 Random Glucose 115 mg/dl Calcium Level 8.3 mg/dl Imaging: MRI neck - 50% diameter stenosis of the left vertebral origin No evidence of hemodynamically significant carotid artery stenosis MRI head- Unremarkable MR angiogram of the brain. MRI brain with and without . Findings consistent with intra-axial mass centered in the right frontal subcortical white matter in the precentral gyrus. Extensive surrounding signal abnormality may either represent reactive vasogenic edema in the setting of a metastatic lesion or tumor infiltration in the setting of a primary HEAT TREATER HEAD lesion, which are the two primary diagnostic considerations. Chronic small vessel ischemic change. CT C/A/P- No evidence of intra-abdominal malignancy. No lymphadenopathy. Scattered low densities in the liver are well-defined and most consistent with hepatic cysts. Indeterminate tiny osseous lesion in the L4 vertebral body. No convincing evidence of osseous metastatic disease. Exam: Physical Exam: Constitutional: appearance nourished, healthy Ears, Nose, Mouth and Throat: mucous membranes moist, no injection and skin normal, eyes normal Cardiovascular: normal S-1 and S-2 and regular rate and rhythm Respiratory: clear to auscultation (CTA) and no rales, rhonchi or wheeze Musculoskeletal: no peripheral edema and good distal pulses Skin: no stigmata of neurocutaneous disease noted and normal and intact Eyes: extraocular muscles intact (EOMI) and pupils equal, round and reactive to light (PERRL) NEUROLOGIC EXAMINATION: Mental status: Alert and interactive Oriented to full date and location Oriented to person Speech fluent with no evidence of aphasia, knows 2017 president no ifs ands or buts. can stick out tongue, close eyes and point to ceiling Cranial Nerves smile eye brow raise symmetric tongue midline Gait/Stance: Posture normal. Gait normal: with steady with steps, base,tandem gait. 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, intrinsics, biceps triceps 5/5, 5/5 all other extremities Current Inpatient Medications Medications (Trade) Dose Ordered Sig/Nuria Route Start Time Stop Time Status Last Admin Dose Admin Acetaminophen (Tylenol Tab) 650 mg Q4H PRN PO 04/12/17 15:45 05/12/17 15:44 Ondansetron HCl (Zofran Inj) 4 mg Q6H PRN IV 04/12/17 15:45 05/12/17 15:44 Cholecalciferol (Vitamin D Tab) 1,000 inter.unit DAILY PO 04/13/17 09:00 05/13/17 08:59 04/14/17 08:17 1,000 INTER.UNIT Metoprolol Tartrate (Lopressor Tab) 50 mg BID PO 04/12/17 21:00 05/12/17 20:59 04/14/17 08:17 50 MG Lidocaine (Lidoderm Patch 5%) 1 patch QAM TD 04/14/17 09:00 05/14/17 08:59 04/14/17 08:18 1 PATCH Miscellaneous (Remove Lidoderm Patch) 1 ea DAILY@21 N/A 04/13/17 23:00 05/13/17 22:59 04/13/17 23:14 1 EA Dexamethasone (Decadron Tab) 4 mg QID PO 04/13/17 17:00 05/13/17 16:59 04/14/17 08:17 4 MG Sodium Chloride 1,000 ml @ 100 mls/hr Q10H IV 04/13/17 16:45 05/13/17 16:44 04/14/17 02:30 100 MLS/HR Ioversol (Optiray 320) 111 ml UD PRN IV 04/13/17 17:00 04/17/17 16:59 Alprazolam (Xanax Tab) 0.5 mg ONE PO 04/14/17 10:15 05/14/17 18:00 Impression 71 year old male finding on CT head and left arm weakness and pain. Plan 1. MRI brain- lesion identified and MRA head- no vascular findings and MRI left shoulder -pending 2. steroids started for edema 3. orthopedics for shoulder issues 4. will not prophy for seizures 5. appointment is made for NS in [place] Tuesday 04/17 1300 NS scheduling will call patient 6. 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
--- NOTE | 2017-04-14 12:41 | ECHOCARDIOGRAM REPORT ---
*NOTICE TO RECEIVING DEMOCRAT AGENCY This information is strictly Confidential and protected under [place] law. [place] law prohibits you from making any further disclosure of this information unless further disclosure is expressly permitted by the written consent of the person to whom it pertains or is authorized by law. A general authorization for the release of medical or other information is not sufficient for this purpose. Hospital accepts no responsibility if the information is made available to any other person, INCLUDING THE PATIENT. Interpretation Summary * Name: TOBY BERRIOS Study Date: 04/14/2017 07:33 AM BP: 155/87 mmHg * Patient Location: [facility]\S\N289\S\2 HR: 61 * : 1945 (M/d/yyyy) Gender: Male Height: 67 in * Age: 71 yrs Ethnicity: [place] Weight: 187 lb * Ordering Physician: Dacia Betancur * Referring Physician: Self, Referred * Performed By: Eusebia Jimenez RDCS * * Reason For Study: Stroke * BSA: 2.0 m2 * The study was technically adequate. * -- Conclusions -- * The left ventricular wall motion is normal. * The LV Ejection Fraction = 60-65%. * Grade I diastolic dysfunction, (abnormal relaxation pattern). * There is no significant valvluar heart disease. * Grossly negative agitated saline contrast study ,however resolution is insufficient to exclude the presence of a PFO. Procedure Details * A complete two-dimensional transthoracic echocardiogram was performed (2D, M-mode, Doppler and color flow Doppler). * A saline contrast injection was performed to assess for cardiac shunting. * The injection was performed through an intravenous line in the right arm. * The attending nurse who injected the saline contrast was Marycarmen Hall RN. * A total of 20 cc of agitated saline was given. Left Ventricle * The left ventricle is normal in size. * There is normal left ventricular wall thickness. * Ejection Fraction = 60-65%. * Left ventricular systolic function is normal. * The left ventricular wall motion is normal. Right Ventricle * The right ventricle is normal size. * The right ventricular systolic function is normal as assessed by tricuspid annular plane systolic excursion (TAPSE) (normal >1.5 cm). Atria * The left atrial size is normal. * Right atrial size is normal. * Grossly negative agitated saline contrast study ,however resolution is insuficient to exclude the presence of a PFO. Mitral Valve * The mitral valve is normal. * There is no mitral valve stenosis. * Significant mitral regurgitation is absent. Tricuspid Valve * The tricuspid valve is normal. * There is no tricuspid stenosis. * Significant tricuspid regurgitation is absent. * Doppler findings do not suggest pulmonary hypertension. Aortic Valve * The aortic valve is trileaflet. * Aortic stenosis is absent. * There is no significant aortic regurgitation. Pulmonic Valve * The pulmonary valve is not well seen, but the Doppler examination is normal without significant regurgitation or stenosis. Great Vessels * The aortic root and proximal ascending aorta are normal sized. Pericardium/Pleural * There is an echodensity in the pericardial space consistent with pericardial fat. * There is no pericardial effusion. Great Vessels * Normal inferior vena cava diameter and respiratory variation suggests normal central venous pressure. * Normal inferior vena cava size and collapsability with sniff indicates a normal right atrial pressure of 3 mmHg Left Ventricular Diastolic Function * Grade I diastolic dysfunction, (abnormal relaxation pattern). MMode 2D Measurements and Calculations IVSd 1.1 cm LVIDd 4.5 cm LVIDs 3.0 cm LVPWd 1.4 cm IVS/LVPW 0.79 FS 33.2 % EDV(Teich) 94.6 ml ESV(Teich) 36.1 ml EF(Teich) 61.8 % EDV(cubed) 93.9 ml ESV(cubed) 28.1 ml EF(cubed) 70.1 % LV mass(C)d 202.9 grams LV mass(C)dI 103.2 grams/m\S\2 SV(Teich) 58.5 ml SI(Teich) 29.8 ml/m\S\2 SV(cubed) 65.8 ml SI(cubed) 33.5 ml/m\S\2 Ao root diam 3.4 cm Ao root area 8.9 cm\S\2 ACS 2.0 cm LA dimension 3.3 cm asc Aorta Diam 3.6 cm LA/Ao 0.98 LVOT diam 2.0 cm LVOT area 3.1 cm\S\2 LVAd ap4 27.7 cm\S\2 LVLd ap4 7.6 cm EDV(MOD-sp4) 82.5 ml EDV(sp4-el) 85.8 ml LVAs ap4 15.4 cm\S\2 LVLs ap4 6.7 cm ESV(MOD-sp4) 31.3 ml ESV(sp4-el) 30.1 ml EF(MOD-sp4) 62.1 % EF(sp4-el) 64.9 % LVAd ap2 24.8 cm\S\2 LVLd ap2 8.0 cm EDV(MOD-sp2) 66.5 ml EDV(sp2-el) 65.1 ml LVAs ap2 14.0 cm\S\2 LVLs ap2 6.4 cm ESV(MOD-sp2) 26.6 ml ESV(sp2-el) 26.3 ml EF(MOD-sp2) 60.0 % EF(sp2-el) 59.6 % LVLd %diff 5.2 % EDV(MOD-bp) 75.1 ml LVLs %diff -5.10 % ESV(MOD-bp) 28.4 ml EF(MOD-bp) 62.2 % SV(MOD-sp4) 51.2 ml SI(MOD-sp4) 26.1 ml/m\S\2 SV(MOD-sp2) 39.9 ml SI(MOD-sp2) 20.3 ml/m\S\2 SV(MOD-bp) 46.7 ml SI(MOD-bp) 23.7 ml/m\S\2 SV(sp4-el) 55.7 ml SI(sp4-el) 28.3 ml/m\S\2 SV(sp2-el) 38.8 ml SI(sp2-el) 19.7 ml/m\S\2 Doppler Measurements and Calculations MV E max nuris 54.8 cm/sec MV A max nuris 64.5 cm/sec MV E/A 0.85 MV dec time 0.16 sec Ao V2 max 111.8 cm/sec Ao max PG 5.0 mmHg Ao max PG (full) 2.1 mmHg JAZMIN(V,A) 2.4 cm\S\2 JAZMIN(V,D) 2.4 cm\S\2 LV V1 max PG 2.9 mmHg LV V1 max 84.9 cm/sec PA V2 max 105.9 cm/sec PA max PG 4.5 mmHg PA acc slope 392.8 cm/sec\S\2 PA acc time 0.17 sec PA pr(Accel) 4.5 mmHg
[2017-04-14 14:55] VITALS: BP 135/77; PULSE 57; TEMP 36.4; O2SAT 99
--- NOTE | 2017-04-14 16:16 | Orthopedic Progress Note ---
Orthopedic Progress Note Date of Service Apr 14, 2017. Objective Can not fully extend fingers, difficulty in controlling hand and wrist, + drop arm, pain with testing of supra and infra spinatus Date Time Temp Pulse Resp B/P (MAP) Pulse Ox O2 Delivery O2 Flow Rate FiO2 04/14/17 14:55 36.4 57 20 135/77 (96) 99 04/14/17 12:50 Room Air 04/14/17 11:18 36.5 72 96 123/63 (83) 96 Room Air 04/14/17 08:20 Room Air 04/14/17 07:04 36.4 56 18 117/69 (85) 97 Room Air 04/14/17 04:00 Room Air 04/14/17 04:00 36.3 61 18 155/87 (109) 96 Room Air 04/14/17 04:00 36.3 61 18 155/87 (109) 96 Room Air 04/14/17 00:00 36.5 56 18 128/68 (88) 95 Room Air 04/14/17 00:00 Room Air 04/13/17 22:36 36.5 56 18 128/68 (88) 95 Room Air 04/13/17 20:47 80 136/71 (92) 04/13/17 20:24 36.4 79 18 127/68 (87) 98 Room Air 04/13/17 20:00 98 Room Air 04/13/17 16:16 36.4 58 16 128/70 (89) 97 Room Air Laboratory Results 24 Hours: Test 04/14/17 06:16 White Blood Count 10.57 K/uL Red Blood Count 4.72 M/uL Hemoglobin 14.8 g/dL Hematocrit 42.6 % Mean Corpuscular Volume 90.3 fL Mean Corpuscular Hemoglobin 31.4 pg Mean Corpuscular Hemoglobin Concent 34.7 g/dl Platelet Count 210 K/uL Mean Platelet Volume 9.9 fL Neutrophils (%) (Auto) 89.1 % Lymphocytes (%) (Auto) 9.3 % Monocytes (%) (Auto) 1.2 % Eosinophils (%) (Auto) 0.0 % Basophils (%) (Auto) 0.1 % Neutrophils # (Auto) 9.42 K/uL Lymphocytes # (Auto) 0.98 K/uL Monocytes # (Auto) 0.13 K/uL Eosinophils # (Auto) 0.00 K/uL Basophils # (Auto) 0.01 K/uL Assessment & Plan Assessment: L shoulder pain and L arm weakness Plan: Likely rotator cuff injury to L shoulder, might be acute on chronic given hx\ Arm weakness is likely from intracranial mass Will defer to oncology/neurosurgery for further treatment. No orthopedic intervention at this time recommend PT work with his hand and fingers to prevent stiffness, possible splinting if needed Will sign off. Thank you
--- NOTE | 2017-04-14 17:18 | DIAGNOSTIC IMAGING REPORT ---
L UPPER EXT JOINT WITHOUT CLINICAL HISTORY: r/o rotator cuff tear trauma. Pain. TECHNIQUE: MRI multi axial acquisition COMPARISON STUDY: None FINDINGS: Moderate degenerative change of the glenohumeral joint. Mild degenerative change acromioclavicular joint. No significant subdeltoid fluid. Findings consistent with supraspinatus tendinitis. Small associated partial thickness tear. No complete or full-thickness tear. Moderate infraspinatus tendinitis. Considerable degenerative change of the glenoid labrum with moderate substance loss seen circumferentially. Acute component is not entirely excluded although the bulk of the findings appear to be degenerative. IMPRESSION: 1. No evidence for full-thickness rotator cuff tear. 2. Considerable infraspinatus and supraspinatus tendinitis with a small partial thickness tear of the supraspinatus tendon. 3. Considerable deterioration of the glenoid labrum. 4. Moderate generalized degenerative change of the glenohumeral joint. The above report was generated using voice recognition software. It may contain grammatical, syntax or spelling errors. Electronically signed by: Kev Groves M.D. 04/14/2017 5:16 PM Dictated Date/Time: 04/14/2017 5:12 PM
[2017-04-14 18:26] VITALS: BP 135/77; PULSE 57; TEMP 36.4; O2SAT 99
--- NOTE | 2017-04-14 18:36 | Progress Note ---
Medicine Progress Note Date & Time of Visit: Apr 14, 2017 at 10:05. Subjective seen sitting in bed, alert, comfortable states left arm weakness and pain with movement is about the same denies headache, nausea, changes with vision, problems ambulating or any other new focal deficits Objective Last 8 Hrs Date Time Temp Pulse Resp B/P (MAP) Pulse Ox O2 Delivery O2 Flow Rate FiO2 04/14/17 08:20 Room Air 04/14/17 07:04 36.4 56 18 117/69 (85) 97 Room Air 04/14/17 04:00 Room Air 04/14/17 04:00 36.3 61 18 155/87 (109) 96 Room Air 04/14/17 04:00 36.3 61 18 155/87 (109) 96 Room Air Physical Exam: General- oriented x 3, not in distress, speaks in sentences with no effort Eyes- EOMI, anicteric Neck- supple, no JVD Lungs- clear breath sounds bilaterally Heart- regular rhythm; no murmur, normal rate Abdomen- normal bowel sounds, soft, nontender Extremities- L shoulder: no edema, erythema, warmth, tenderness poor ROM on abduction due to severe pain motor strength about 4/5 L hand: (+) mild edema but no erythema, warmth, tenderness no pretibial edema, no calf tenderness Neuro- alert, oriented x 3; PERRL, EOMI; no facial palsy; no dysarthria; motor 5 /5 bilaterally except for left arm about 4/5; sensation 100% Skin- warm & dry Laboratory Results: Last 24 Hours Test 04/14/17 06:16 White Blood Count 10.57 K/uL Red Blood Count 4.72 M/uL Hemoglobin 14.8 g/dL Hematocrit 42.6 % Mean Corpuscular Volume 90.3 fL Mean Corpuscular Hemoglobin 31.4 pg Mean Corpuscular Hemoglobin Concent 34.7 g/dl Platelet Count 210 K/uL Mean Platelet Volume 9.9 fL Neutrophils (%) (Auto) 89.1 % Lymphocytes (%) (Auto) 9.3 % Monocytes (%) (Auto) 1.2 % Eosinophils (%) (Auto) 0.0 % Basophils (%) (Auto) 0.1 % Neutrophils # (Auto) 9.42 K/uL Lymphocytes # (Auto) 0.98 K/uL Monocytes # (Auto) 0.13 K/uL Eosinophils # (Auto) 0.00 K/uL Basophils # (Auto) 0.01 K/uL RDW Standard Deviation 42.1 fL RDW Coefficient of Variation 12.7 % Immature Granulocyte % (Auto) 0.3 % Immature Granulocyte # (Auto) 0.03 K/uL Sodium Level 139 mmol/L Potassium Level 4.1 mmol/L Chloride Level 109 mmol/L Carbon Dioxide Level 23 mmol/L Anion Gap 7.0 mmol/L Blood Urea Nitrogen 18 mg/dl Creatinine 0.82 mg/dl Est Creatinine Clear Calc Drug Dose 82.7 ml/min Estimated GFR () 101.7 Estimated GFR (Non- 87.7 BUN/Creatinine Ratio 22.1 Random Glucose 115 mg/dl Calcium Level 8.3 mg/dl Assessment & Plan LEFT UPPER EXTREMITY WEAKNESS, POSSIBLE ACUTE CVA VS. MASS Onset 2 weeks ago; sent by Dr. Godinez after negative EEG in clinic CT head shows possible frontoparietal subacute stroke vs. 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 * The LV Ejection Fraction = 60-65%. * Grade I diastolic dysfunction, (abnormal relaxation pattern). * There is no significant valvluar heart disease. * Grossly negative agitated saline contrast study ,however resolution is insufficient to exclude the presence of a PFO. -- CT chest: unrevealing CT abdomen/pelvis: possible L4 lesion, mets unlikely; otherwise unrevealing -- has been started on Decadron 4mg QID -- discussed with Dr. Godinez- Neurology patient has been arranged to ff up with [facility]surgery on 04/17/17, at 1:00pm continue Decadron 4mg QID advised no driving, operating machineries, seizure precautions -- will need PT at home for left arm and hand weakness LEFT SHOULDER PAIN, R/O ROTATOR CUFF TEAR S/p injury 4 weeks ago Seen by ortho as outpatient, x-rays have shown arthritis but no fracture/ dislocation -- MRI shoulder: IMPRESSION: 1. No evidence for full-thickness rotator cuff tear. 2. Considerable infraspinatus and supraspinatus tendinitis with a small partial thickness tear of the supraspinatus tendon. 3. Considerable deterioration of the glenoid labrum. 4. Moderate generalized degenerative change of the glenohumeral joint. Ortho consulted- Dr. Tidwell -- no further interventions at this time PT as an outpatient HYPERTENSION BP is stable Continue metoprolol DYSLIPIDEMIA LDL 101 TG 171 intolerant to statins in the past dietary modification outpatient monitoring DISPOSITION d/c home today ff up with Neurosurgery in [facility] on Monday04/17/17 at 1:00pm ff up with Dr. Orta in 1 week Current Inpatient Medications: Current Inpatient Medications Medications (Trade) Dose Ordered Sig/Nuria Route Start Time Stop Time Status Last Admin Dose Admin Acetaminophen (Tylenol Tab) 650 mg Q4H PRN PO 04/12/17 15:45 05/12/17 15:44 Ondansetron HCl (Zofran Inj) 4 mg Q6H PRN IV 04/12/17 15:45 05/12/17 15:44 Cholecalciferol (Vitamin D Tab) 1,000 inter.unit DAILY PO 04/13/17 09:00 05/13/17 08:59 04/14/17 08:17 1,000 INTER.UNIT Metoprolol Tartrate (Lopressor Tab) 50 mg BID PO 04/12/17 21:00 05/12/17 20:59 04/14/17 08:17 50 MG Lidocaine (Lidoderm Patch 5%) 1 patch QAM TD 04/14/17 09:00 05/14/17 08:59 04/14/17 08:18 1 PATCH Miscellaneous (Remove Lidoderm Patch) 1 ea DAILY@21 N/A 04/13/17 23:00 05/13/17 22:59 04/13/17 23:14 1 EA Dexamethasone (Decadron Tab) 4 mg QID PO 04/13/17 17:00 05/13/17 16:59 04/14/17 08:17 4 MG Sodium Chloride 1,000 ml @ 100 mls/hr Q10H IV 04/13/17 16:45 05/13/17 16:44 04/14/17 02:30 100 MLS/HR Ioversol (Optiray 320) 111 ml UD PRN IV 04/13/17 17:00 04/17/17 16:59
[2017-04-14] MEDS ORDERED: DXM4 PO (18:39)
[2017-04-14] MEDS ORDERED: OMEP40CA41 PO (18:45)
--- NOTE | 2017-04-14 18:51 | Discharge Instructions ---
Discharge Instructions Date of Service Apr 14, 2017. Admission Reason for Admission: Left Arm Weakness Discharge Discharge Diagnosis / Problem: RIGHT FRONTAL LOBE MASS, LEFT ARM WEAKNESS Discharge Goals Goal(s): Diagnostic testing, Therapeutic intervention Activity Recommendations Activity Limitations: as noted below (NO DRIVING, NO HEAVY EXERTION) Lifting Limitations: until after follow-up appointment Exercise/Sports Limitations: until after follow-up appointment Driving or Machine Use: NO DRIVING OR OPERATING MACHINERIES . Instructions / Follow-Up Instructions / Follow-Up PLEASE REVIEW YOUR NEW MEDICATION LIST AND FOLLOW INSTRUCTIONS CAREFULLY. DO NOT TAKE ASPIRIN, NSAIDS- EXAMPLE: IBUPROFEN, NAPROXEN, ETC. OR ANY BLOOD THINNERS. CALL PRIMARY CARE PHYSICIAN OR RETURN TO ER IMMEDIATELY IF WITH WORSENING OF SYMPTOMS. CALL 911 IMMEDIATELY IF PATIENT DEVELOPS SEIZURES. FOLLOW UP WITH NEUROSURGERY CLINIC IN [facility] ON Monday04/17/17 AT 1: 00 PM. PLEASE CALL THE OFFICE ON MONDAY MORNING TO VERIFY APPOINTMENT AND DIRECTIONS TO THEIR OFFICE. [address] Tel no. / FOLLOW UP WITH DR. CUMMINGS IN 1 WEEK (CLINIC TO CALL PATIENT RE: APPOINTMENT). Current Hospital Diet Patient's current hospital diet: AHA Diet (Heart Healthy) Discharge Diet Recommended Diet: AHA Diet (Heart Healthy) Procedures Procedures Performed: BRAIN MRI, HEAD MRA, SHOULDER MRI, 2 DE[address]ARDIOGRAM, CT CHEST AND ABDOMEN Pending Studies Studies pending at discharge: yes List of pending studies: C/O NEUROSURGERY SERVICE IN [facility] Laboratory Results Hemoglobin A1c Test 04/12/17 13:50 Range/Units Estimated Average Glucose 111 mg/dl Hemoglobin A1c 5.5 4.5-5.6 % Lipid Panel Test 04/13/17 05:53 Range/Units Triglycerides Level 171 H 0-150 mg/dl Cholesterol Level 186 0-200 mg/dl HDL Cholesterol 51 mg/dl Cholesterol/HDL Ratio 3.6 LDL Cholesterol, Calculated 101 mg/dl Medical Emergencies . Who to Call and When: Medical Emergencies: If at any time you feel your situation is an emergency, please call 911 immediately. . Non-Emergent Contact Non-Emergency issues call your: Primary Care Provider Call Non-Emergent contact if: you have a fever, your pain is not controlled, your pain is worsening, you have any medication questions . Past History Medical & Surgical History: (1) Left arm weakness (2) Abnormal brain CT (3) Hypertension (4) Hyperlipidemia (5) Statin intolerance (6) History of cataract surgery . "Provider Documentation" section prepared by Neftali Rahman. . VTE Core Measure Inpt VTE Proph given/why not?: Enoxaparin (Lovenox)SQ (WAS DISCONTINUED DUE TO INTRACRANIAL MASS)
--- NOTE | 2017-04-14 18:52 | Discharge Summary ---
Discharge Summary Date of Service Apr 14, 2017. Discharge Summary Admission Date: Apr 12, 2017 at 14:43 Discharge Date: Apr 14, 2017 Discharge Disposition: Home Principal Diagnosis: LEFT UPPER EXTREMITY WEAKNESS, SECONDARY TO RIGHT FRONTAL LOBE MASS Secondary Diagnoses/Problems: Please refer to hospital course below. Procedures: BRAIN COMBO CLINICAL HISTORY: 71 years-old Male presenting with stroke vs. mass, left arm weakness. TECHNIQUE: Multisequence, multiplanar MR imaging of the brain was performed before and after the administration of intravenous contrast. IV contrast: 8.5 mL of Gadavist. COMPARISON: CT head from 04/12/2017. FINDINGS: Ventricles and sulci normal in size. Intra-axial T1 hypointense, T2 hyperintense mass centered in the subcortical white matter of the right frontal lobe along the precentral gyrus with extensive surrounding T2/FLAIR hyperintensity in the white matter minimally extending into the right parietal lobe. The mass demonstrates primarily peripheral enhancement with minimal heterogeneous central enhancement. The mass primarily demonstrates facilitated diffusion with a rim of diffusion restriction corresponding to the enhancing component. The enhancing portion measures 2.3 x 2.4 x 1.9 cm. A diminutive, linear, intrinsically T1 hyperintense component tracks towards the ependymal surface of the adjacent trigone of the right lateral ventricle but does not reach the ventricle. No additional lesion is noted. Additionally, scattered areas of T2/FLAIR hyperintensity, nonspecific but likely chronic small vessel ischemic change. No hemorrhage. No extra-axial fluid collection. T2 skull base flow voids preserved. Bone marrow signal intensity within the calvarium within normal limits. Bilateral [place] lenses of the globes are absent. IMPRESSION: 1. Findings consistent with intra-axial mass centered in the right frontal subcortical white matter in the precentral gyrus. Extensive surrounding signal abnormality may either represent reactive vasogenic edema in the setting of a metastatic lesion or tumor infiltration in the setting of a primary DIGITAL DIRECTOR lesion, which are the two primary diagnostic considerations. 2. Chronic small vessel ischemic change. MR ANGIOGRAM OF THE BRAIN CLINICAL HISTORY: Left arm weakness. COMPARISON STUDY: CT of the brain dated 04/12/2017. TECHNIQUE: 3-D [id number]-[id number] MR angiography of the intracranial circulation is performed. 3-D tumble views are created and assessed. IV contrast was not administered for this examination. FINDINGS: The internal carotid arteries are widely patent bilaterally, as are the anterior and middle cerebral arteries. The vertebrobasilar system and posterior cerebral arteries are widely patent. The vertebral arteries are codominant. There is no aneurysm, high-grade stenosis, or focal vessel cutoff seen throughout the intracranial circulation. IMPRESSION: Unremarkable MR angiogram of the brain. NECK MRA NECK MRA HISTORY: Stroke TECHNIQUE: Nowr-xg-shkyav and gadolinium-enhanced MRA of the neck was performed both before and after the intravenous administration of contrast. All measurements were calculated based on NASCET criteria. The patient was administered 8.5 cc of intravenous Gadavist. COMPARISON STUDY: None. FINDINGS: The aortic arch and proximal great vessels are widely patent. There is no significant stenosis, occlusion, or dissection identified within the bilateral common carotid, or internal carotid arteries. There is a 50% diameter stenosis of the left vertebral origin. IMPRESSION: 1. 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 No evidence of hemodynamically significant carotid artery stenosis CT OF THE CHEST WITH IV CONTRAST CLINICAL HISTORY: Intracranial mass. Evaluate for primary malignancy. COMPARISON STUDY: None TECHNIQUE: Following the IV administration of 117 mL of Optiray-320, CT of the thorax was performed from the thoracic inlet to the lung bases. Images are reviewed in the axial, sagittal, and coronal planes. IV contrast was administered without complication. A dose lowering technique was utilized adhering to the principles of ALARA. CT DOSE: 1112.76 mGy.cm FINDINGS: Thyroid: Imaged portions of the thyroid gland are normal in appearance. Thoracic aorta: The ascending thoracic aorta measures 37 mm in diameter. Pulmonary vasculature: The pulmonary trunk is normal in caliber. There are no central filling defects identified to suggest pulmonary embolus. Note that this examination was not protocoled for the evaluation of pulmonary emboli. HEART: The heart is borderline enlarged. There are coronary artery calcifications. Lungs and pleural spaces: No pleural effusions are visualized. Evaluation the lung parenchyma is limited due to respiratory motion artifact. There is no focal pulmonary consolidation. There are no suspicious pulmonary masses. There is a small noncalcified pleural plaque within the left upper lobe region. There is a calcified right upper lobe granuloma Mediastinum: There is no mediastinal lymphadenopathy. Ольга: Clear. Axilla: Clear. Upper abdomen: There are several hepatic hypodensities largest of which is located within the left lobe measuring 25 mm. These would be described separately in a CT scan of the abdomen and pelvis. Skeletal structures: There are no lytic or blastic osseous lesions. IMPRESSION: 1. No acute intrathoracic findings. No evidence of intrathoracic malignancy. No evidence of pathologic adenopathy. ABD/PELVIS IV CONTRAST ONLY CLINICAL HISTORY: 71 years-old Male presenting with brain mass, r/o primary malignancy. TECHNIQUE: Multidetector CT of the abdomen and pelvis was performed after the administration of intravenous contrast. IV contrast: 117 mL of Optiray 320. A dose lowering technique was used consistent with the principles of ALARA (as low as reasonably achievable). COMPARISON: None. CT DOSE (mGy.cm): The estimated cumulative dose is 1112.76. FINDINGS: Director Of District Office topogram: Unremarkable. Lung bases: Minimal dependent changes likely atelectasis. Heart top normal in size. No pericardial or pleural effusion. Liver: Normal morphology. Scattered well-defined hypodensities, the largest in the left hepatic lobe measuring 2.6 cm, indeterminate but likely hepatic cysts. Patent hepatic vasculature. Biliary: No intrahepatic or extrahepatic biliary ductal dilatation. Possible adenomyomatosis of the gallbladder fundus. Pancreas: Mild parenchymal atrophy. Spleen: Parenchymal calcification suggest prior granulomatous infection. Adrenal glands: Normal. Kidneys and ureters: Normal. No hydronephrosis. Bladder: Normal. Pelvic organs: Prostate enlargement likely secondary to benign prostatic hyperplasia. Bowel: Normal appendix. No gross evidence of mass lesion allowing for the absence of oral contrast. No bowel obstruction. Peritoneal cavity: No free fluid or intraperitoneal gas. Vasculature: Atherosclerosis of the normal caliber abdominal aorta. IVC patent. Lymph nodes: No enlarged lymph nodes in the abdomen or pelvis. Abdominal wall: Normal. Musculoskeletal: Degenerative changes of the spine. Scattered bone islands noted in the lumbar spine. An indeterminate tiny osseous lesion is noted in the L4 vertebral body along the right aspect (series 7 image 243). IMPRESSION: 1. No evidence of intra-abdominal malignancy. No lymphadenopathy. 2. Scattered low densities in the liver are well-defined and most consistent with hepatic cysts. 3. Indeterminate tiny osseous lesion in the L4 vertebral body. No convincing evidence of osseous metastatic disease. L UPPER EXT JOINT WITHOUT CLINICAL HISTORY: r/o rotator cuff tear trauma. Pain. TECHNIQUE: MRI multi axial acquisition COMPARISON STUDY: None FINDINGS: Moderate degenerative change of the glenohumeral joint. Mild degenerative change acromioclavicular joint. No significant subdeltoid fluid. Findings consistent with supraspinatus tendinitis. Small associated partial thickness tear. No complete or full-thickness tear. Moderate infraspinatus tendinitis. Considerable degenerative change of the glenoid labrum with moderate substance loss seen circumferentially. Acute component is not entirely excluded although the bulk of the findings appear to be degenerative. IMPRESSION: 1. No evidence for full-thickness rotator cuff tear. 2. Considerable infraspinatus and supraspinatus tendinitis with a small partial thickness tear of the supraspinatus tendon. 3. Considerable deterioration of the glenoid labrum. 4. Moderate generalized degenerative change of the glenohumeral joint. Consultations: Neurologist Dr. Godinez, Orthopedic Dr. Tidwell Pending Studies/Follow-Up: Please refer to hospital course below. Medication Reconciliation New Medications: Omeprazole (Prilosec) 40 Mg Cap 40 MG PO DAILY for 30 Days, #30 CAP 1 Refill TAKE 30 MINUTES BEFORE BREAKFAST; TO BE TAKEN WHILE ON DECADRON Dexamethasone (Dexamethasone) 4 Mg Tab 4 MG PO QID for 30 Days, #120 TAB 1 Refill Continued Medications: Allopurinol (Zyloprim) 300 Mg Tab 300 MG PO DAILY PRN for gout flare, TAB Cholecalciferol (Vitamin D) 1,000 Unit Tab 100 UNIT PO DAILY Metoprolol Tartrate (Lopressor) (Lopressor) 50 Mg Tab 50 MG PO BID, TAB Discontinued Medications: Prednisone (Prednisone) 10 Mg Tab 0 PO UD, #1 PKT 10 mg tabs. Taper as directed. Take 5 tabs for 2 days, 4 tabs for 2 days, 3 tabs for 2 days, 2 tabs for 2 days, 1 tab for 2 days. Admission Information HPI (per Admitting provider): This is a 71 y/o male with PMH of hypertension, hyperlipidemia, statin intolerance, and other problems listed below who was sent to the ED from neurology office for LUE weakness. 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 Then 2 weeks ago he developed weakness of the left upper extremity most pronounced in the fingers. Pt was seen by PCP Dr. Orta on 04/07/17 who urgently referred him to ortho. Pt was seen by Cielo Ocampo PA-C of orthopedics at [facility] who obtained an x-ray showing arthritis, no fracture. He was referred to neurology for possible EMG. Pt was seen by Dr. Godinez today, EMG was normal, exam was suggestive of potential upper motor neuron weakness, so patient was sent to ER for further workup. Denies weakness in any other extremities. Left shoulder pain is exacerbated by certain motions but nonpainful at rest. Has had swelling in the left hand which is improving on steroid taper over past 2 days, prescribed by Dr. Dangelo. Pt denies fever, chills, weight change, URI symptoms, headache, vision change, neck pain, numbness, speech or swallowing difficulty, facial droop (denied by ), dizziness/ balance difficulty, tremor, chest pain, palpitations, cough, SOB, abdominal pain, N/V/D, urinary changes, edema. Patient usually takes aspirin 81 mg daily but stopped 1 month ago as he was taking Aleve PRN for shoulder pain. Pt had prior leg pain reaction to Lipitor and a second statin ? Pravachol but does not recall the name. Denies hx of TIA, CVA, or arrhythmia. Physical Exam (per Admitting): General Appearance: WD/WN, no apparent distress, + pertinent finding ( pleasnat alert 71 year old male, at bedside) Head: normocephalic, atraumatic Eyes: normal inspection, PERRL, EOMI ENT: hearing grossly normal, pharynx normal Neck: supple, no carotid bruits, trachea midline Respiratory/Chest: lungs clear, normal breath sounds, no respiratory distress, no accessory muscle use Cardiovascular: regular rate, rhythm, no murmur Abdomen/GI: normal bowel sounds, non tender, soft Extremities/Musculoskelatal: no calf tenderness, no pedal edema, + swelling (mild L hand swelling), + pertinent finding (left shoulder- no tenderness to palpation, + decreased L shoulder ROM secondary to pain) Neurologic/Psych: alert, normal mood/affect, oriented x 3, + pertinent finding (no dysarthria, no facial sensory deficit or droop, 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 all other extremities without motor deficits. No sensory deficit of extremities. Finger to nose intact on the right , unable to do on the left due to decreased shoulder ROM. patellar refexes 2+ bilaterally. plantar reflex- toes are downgoing. gait is normal. ) Skin: normal color, warm/dry Hospital Course LEFT UPPER EXTREMITY WEAKNESS, SECONDARY TO RIGHT FRONTAL LOBE MASS Onset 2 weeks ago; sent by Dr. Godinez after negative EEG in clinic CT head shows possible frontoparietal subacute stroke vs. tumor -- MRI brain: . Findings consistent with intra-axial mass centered in the right frontal subcortical white matter in the precentral gyrus. Extensive surrounding signal abnormality may either represent reactive vasogenic edema in the setting of a metastatic lesion or tumor infiltration in the setting of a primary DIGITAL DIRECTOR lesion, which are the two primary diagnostic considerations. Head and Neck: MRA unrevealing Echo: -- Conclusions -- * The left ventricular wall motion is normal. * The LV Ejection Fraction = 60-65%. * Grade I diastolic dysfunction, (abnormal relaxation pattern). * There is no significant valvluar heart disease. * Grossly negative agitated saline contrast study ,however resolution is insufficient to exclude the presence of a PFO. -- CT chest: unrevealing CT abdomen/pelvis:1. No evidence of intra-abdominal malignancy. No lymphadenopathy. 2. Scattered low densities in the liver are well-defined and most consistent with hepatic cysts. 3. Indeterminate tiny osseous lesion in the L4 vertebral body. No convincing evidence of osseous metastatic disease. -- has been started on Decadron 4mg QID -- discussed with Dr. Godinez- Neurology patient has been arranged to ff up with [facility] on 04/17/17, at 1:00pm continue Decadron 4mg QID advised no driving, operating machineries, seizure precautions -- will need PT at home for left arm and hand weakness LEFT SHOULDER PAIN, R/O ROTATOR CUFF TEAR S/p injury 4 weeks ago Seen by ortho as outpatient, x-rays have shown arthritis but no fracture/ dislocation -- MRI shoulder: IMPRESSION: 1. No evidence for full-thickness rotator cuff tear. 2. Considerable infraspinatus and supraspinatus tendinitis with a small partial thickness tear of the supraspinatus tendon. 3. Considerable deterioration of the glenoid labrum. 4. Moderate generalized degenerative change of the glenohumeral joint. Ortho consulted- Dr. Tidwell -- no further interventions at this time PT as an outpatient HYPERTENSION BP is stable Continue metoprolol DYSLIPIDEMIA LDL 101 TG 171 intolerant to statins in the past dietary modification outpatient monitoring DISPOSITION d/c home today ff up with Neurosurgery in [facility] on Monday04/17/17 at 1:00pm ff up with Dr. Orta in 1 week Total time spent on discharge = 45 minutes This includes examination of the patient, discharge planning, medication reconciliation, and communication with other providers. Discharge Instructions Discharge Instructions Date of Service Apr 14, 2017. Admission Reason for Admission: Left Arm Weakness Discharge Discharge Diagnosis / Problem: RIGHT FRONTAL LOBE MASS, LEFT ARM WEAKNESS Discharge Goals Goal(s): Diagnostic testing, Therapeutic intervention Activity Recommendations Activity Limitations: as noted below (NO DRIVING, NO HEAVY EXERTION) Lifting Limitations: until after follow-up appointment Exercise/Sports Limitations: until after follow-up appointment Driving or Machine Use: NO DRIVING OR OPERATING MACHINERIES . Instructions / Follow-Up Instructions / Follow-Up PLEASE REVIEW YOUR NEW MEDICATION LIST AND FOLLOW INSTRUCTIONS CAREFULLY. DO NOT TAKE ASPIRIN, NSAIDS- EXAMPLE: IBUPROFEN, NAPROXEN, ETC. OR ANY BLOOD THINNERS. CALL PRIMARY CARE PHYSICIAN OR RETURN TO ER IMMEDIATELY IF WITH WORSENING OF SYMPTOMS. CALL 911 IMMEDIATELY IF PATIENT DEVELOPS SEIZURES. FOLLOW UP WITH NEUROSURGERY CLINIC IN [facility] ON Monday04/17/17 AT 1: 00 PM. PLEASE CALL THE OFFICE ON MONDAY MORNING TO VERIFY APPOINTMENT AND DIRECTIONS TO THEIR OFFICE. [address] Tel no. / FOLLOW UP WITH DR. ORTA IN 1 WEEK (CLINIC TO CALL PATIENT RE: APPOINTMENT). Current Hospital Diet Patient's current hospital diet: AHA Diet (Heart Healthy) Discharge Diet Recommended Diet: AHA Diet (Heart Healthy) Procedures Procedures Performed: BRAIN MRI, HEAD MRA, SHOULDER MRI, 2 DE[address]ARDIOGRAM, CT CHEST AND ABDOMEN Pending Studies Studies pending at discharge: yes List of pending studies: C/O NEUROSURGERY SERVICE IN [facility]
--- NOTE | 2017-05-02 05:35 | EDITING REQUIRED CODING QUERY ---
CODING QUERY To promote full compliance with coding requirements relating to patient care, provider participation is requested in all cases of resolution agent uncertainty. Please assist us with the question(s) below: Coding Question(s): Per documentation left upper extremity weakness secondary to right frontal lobe mass vs. subacute stroke. Was the stroke ruled out? Physician's Response(s): __x_ Stroke ruled out ___ Stroke is a differential diagnosis not ruled out ___ Other (please specify) Thank you Katherin Pendleton Principal Diagnosis: "_that condition established after study, to be chiefly responsible for occasioning the admission of the patient to the hospital for care." Co-Existing Principal Diagnosis: "_when two or more diagnoses equally meet the criteria for principal diagnosis as determined by the circumstances of admission, diagnostic work up, and/or therapy provided, and the Alphabetic Index, Tabular List, or another coding guideline does not provide sequencing direction, any one of the diagnoses may be sequenced first." "When the physician has documented what appears to be a current diagnosis in the body of the record, but has not included the diagnosis in the final diagnostic statement, the physician should be asked whether the diagnosis should be added." (Source Coding Clinic 2 QTR90. p3-4)
== END 2017-04-14 19:04 | disposition home or self-care (01) | DRG 55 ==
LOC: C.EDB 13:22 → C.MED 14:43 → ENRESERV 15:36
PROVIDERS: ADMIT Hospitalist; ATTEND Internal Medicine
DX: D49.6 Neoplasm of unspecified behavior of brain (principal); R53.1 Weakness; S46.002A Unspecified injury of muscle(s) and tendon(s) of the rotator cuff of left shoulder, initial encounter; X50.9XXA Other and unspecified overexertion or strenuous movements or postures, initial encounter; M19.012 Primary osteoarthritis, left shoulder; I10 Essential (primary) hypertension; E78.5 Hyperlipidemia, unspecified; F10.20 Alcohol dependence, uncomplicated; Z87.891 Personal history of nicotine dependence; Z88.8 Allergy status to other drugs, medicaments and biological substances; Z82.3 Family history of stroke; Z82.49 Family history of ischemic heart disease and other diseases of the circulatory system

== ENCOUNTER 2022-08-16 15:27 | Inpatient (IN) ==
[2022-08-16 17:23] LABS: Basophils # (auto) 0.07 K/uL (0-0.2); Basophils % (auto) 0.6 %; Eosinophils # (auto) 0.22 K/uL (0-0.50); Eosinophils % (auto) 1.9 %; Hematocrit (blood only) 37.4 % (40.1-51.0); Hemoglobin 12.5 g/dl (14.0-18.0); Immature Granulocytes # (auto) 0.08 K/uL (0.00-0.02); Immature Granulocytes % (auto) 0.7 %; Lymphocytes # (auto) 1.27 K/uL (1.2-3.4); Lymphocytes % (auto) 11.2 %; Mean Corpuscular Hemoglobin 28.8 pg (25.0-34.0); Mean Corpuscular Hgb Conc 33.4 g/dL (32.0-36.0); Mean Corpuscular Volume 86.2 fL (80.0-100.0); Mean Platelet Volume 9.2 fL (9.4-12.4); Monocytes # (auto) 1.06 K/uL (0.24-0.82); Monocytes % (auto) 9.3 %; Neutrophils # (auto) 8.65 K/uL (1.4-6.5); Neutrophils % (auto) 76.3 %; Platelet Count 397 K/uL (130-400); RDW Coefficient of Variation 12.4 % (11.5-14.5); Red Blood Count 4.34 M/uL (4.63-6.08); White Blood Count 11.35 K/ul (4.8-10.8)
[2022-08-16 17:38] LABS: Albumin Globulin Ratio 0.9 (0.9-2); Albumin Level 3.6 gm/dl (3.4-5.0); Bilirubin,Total 0.7 mg/dl (0.2-1.0); Calcium 8.8 mg/dl (8.5-10.1); Creatinine Clr Calc Pharmacy 68.7 ml/min; Est GFR (African American) 90.2 ml/min; Est GFR (Non-African American) 77.8 ml/min; Globulin 3.9 gm/dl (2.5-4.0); Magnesium 2.1 mg/dl (1.7-2.4); Phosphorus 2.8 mg/dl (2.5-4.9); Total Protein 7.5 gm/dl (6.0-8.3)
--- NOTE | 2022-08-16 17:56 | XRay Report ---
XR chest 1V portable CLINICAL HISTORY: BLE edema COMPARISON STUDY: Chest CT April 13, 2017. FINDINGS: Lung volumes are normal. Lungs are clear. There is no pneumothorax or pleural effusion. Car diac size is normal. Mediastinal contours are normal. There is no evidence for pulmonary edema. IMPRESSION: No acute cardiopulmonary findings. ACT 112: Negative or not required by law. Electronically signed by: Bassem Canseco M.D. 08/16/2022 5:54 PM
[2022-08-16] MEDS ORDERED: PIPERACILLIN/TAZOBACTAM 4.5 GM/120 ML BAG IV ONE (18:21)
[2022-08-16] MEDS ORDERED: VANCOMYCIN CONSULT ACTIVE PRN (18:21)
[2022-08-16] MEDS ORDERED: VANCOMYCIN HCL 2,250 MG in SODIUM CHLORIDE 0.9% 500 ML IV ONE (18:21)
--- NOTE | 2022-08-16 18:26 | Emergency Department Note ---
History of Present Illness General Chief complaint: Leg Injury/Pain Stated complaint: LEG WOUNDS Time Seen by Provider: 08/16/22 18:04 History of Present Illness Provider complaint: Leg wounds Onset (ago): year(s) 1 Location: lower extremity, left and right Associated symptoms: + rash; no fever/chills 77-year-old male presents emergency department with daughter for leg wounds. Patient is referred here by his primary care doctor at [facility]. Patient reports he has had wounds of his bilateral lower extremities for the last year and they have gotten progressively worse. Patient states he has not sought any medical attention over the last year. Daughter states the patient's has recently passed and he has not been taking his good care of himself and she is not sure if he might have dementia. Patient denies any fevers. There is drainage from the bilateral lower extremities. Home Medications Medication Instructions Recorded Confirmed Type aspirin 325 mg tablet 325 mg PO QAM 04/02/20 08/16/22 History metoprolol tartrate 50 mg tablet 50 mg PO BID 04/02/20 08/16/22 History cholecalciferol (vitamin D3) 25 25 mcg PO DAILY 08/16/22 08/16/22 History mcg (1,000 unit) tablet (Vitamin D3) cyclosporine 0.05 % eye drops in a 1 drp ophthalmic (eye) [facility] 08/16/22 08/16/22 History dropperette (Restasis) Allergies Allergy/AdvReac Type Severity Reaction Status Date / Time minocycline Allergy Hives Verified 08/16/22 18:58 Smyiaam-[id number]-[id number] Reductase AdvReac Muscle Pain Verified 08/16/22 18:58 Inhibitor Past Med/Surg History Medical History GERD (gastroesophageal reflux disease) Hyperlipidemia Hypertension Surgical History History of cataract surgery Social History Smoking Status: Never smoker Feels Safe at Home: Yes Physical Exam Vital Signs Vital Signs - 24 hr 08/16/22 15:33 08/16/22 19:27 Temperature 36.8 C Temperature Source Oral Pulse Rate 103 H Pulse Rate [Finger] 88 Pulse Rhythm [Finger] Regular Pulse Strength [Finger] Normal Respiratory Rate 18 20 Respiratory Effort / Characteristics Non-Labored Respiratory Depth Normal Blood Pressure 134/52 L Blood Pressure [Right Arm] 136/78 Blood Pressure Mean 79 Blood Pressure Mean [Right Arm] 97 Blood Pressure Position [Right Arm] Lying Pulse Oximetry 97 100 Oxygen Delivery Method Room Air Room Air Sepsis Recent Fever Within 48 Hours No Sepsis New/Unexplained Change in Mental Status No Sepsis Action Taken by Nursing No Action Required Physical Exam GENERAL: He is oriented to person, place, and time. He appears well-developed and well-nourished. Patient is sitting in jeans that are soaked with drainage from his bilateral lower extremity wounds. HENT: Exam performed. - Head: Normocephalic and atraumatic. NECK: Normal range of motion. Neck supple. No JVD present. SKIN: When the jeans were cut off the patient has significant bilateral lower extremity wounds that are circumferential and are actively draining foul- smelling purulent discharge with flies flying around the wounds. There are no maggots visible. Course Course 180: The patient was evaluated in room A9. A complete history and physical exam was performed Cardiac monitoring: An order was placed for continuous cardiac monitoring. The monitor shows a rate of 90 with sinus rhythm 1920: Vital signs stable. Labs within normal limits. X-ray shows possible osteomyelitis but no gas in soft tissues. Patient be treated with broad- spectrum antibiotics Zosyn and vancomycin admitted to the [facility] hospitalist team. Administered Medications Discontinued Medications Vancomycin HCl 2,250 mg/ (Sodium Chloride) 545 mls @ 200 mls/hr IV NOW ONE Stop: 08/16/22 21:04 Last Admin: 08/16/22 19:58 Dose: 200 mls/hr Documented By: [id number] Piperacillin Sod/Tazobactam Sod (Zosyn) 4.5 gm in 120 mls @ 240 mls/hr IV NOW ONE Stop: 08/16/22 18:50 Last Infusion: 08/16/22 22:57 Dose: 0 mls/hr Documented By: Admin: 08/16/22 19:00 Dose: 240 mls/hr Documented By: [id number] Lorazepam (Lorazepam 0.5 Mg Tab) 0.5 mg PO NOW STA Stop: 08/16/22 21:43 Last Admin: 08/16/22 21:49 Dose: 0.5 mg Documented By: [id number] Medical Decision Making Laboratory Data 08/16/22 16:46 08/16/22 16:46 Lab Results 08/16/22 08/16/22 08/16/22 Range/Units 16:46 16:46 16:46 WBC 11.35 H (4.8-10.8) K/ul RBC 4.34 L (4.63-6.08) M/uL Hgb 12.5 L (14.0-18.0) g/dl Hct 37.4 L (40.1-51.0) % MCV 86.2 (80.0-100.0) fL MCH 28.8 (25.0-34.0) pg MCHC 33.4 (32.0-36.0) g/dL RDW Std Deviation 39.0 (36.4-46.3) fL RDW Coeff of Nikia 12.4 (11.5-14.5) % Plt Count 397 (130-400) K/uL MPV 9.2 L (9.4-12.4) fL Immature Gran % (Auto) 0.7 % Neut % (Auto) 76.3 % Lymph % (Auto) 11.2 % Bennett % (Auto) 9.3 % Eos % (Auto) 1.9 % Baso % (Auto) 0.6 % Neut # (Auto) 8.65 H (1.4-6.5) K/uL Lymph # (Auto) 1.27 (1.2-3.4) K/uL Bennett # (Auto) 1.06 H (0.24-0.82) K/uL Eos # (Auto) 0.22 (0-0.50) K/uL Baso # (Auto) 0.07 (0-0.2) K/uL Immature Gran # (Auto) 0.08 H (0.00-0.02) K/uL Sodium 135 L (136-145) mmol/L Potassium 4.0 (3.5-5.1) mmol/L Chloride 104 (98-107) mmol/L Carbon Dioxide 24 (21-32) mmol/L Anion Gap 7 (3-11) BUN 13 (6-23) mg/dl Creatinine 0.93 (0.6-1.4) mg/dl Est Cr Clr Drug Dosing 68.7 ml/min Est GFR ( Amer) 90.2 ml/min Est GFR (Non-Af Amer) 77.8 ml/min BUN/Creatinine Ratio 14.0 (10-20) Glucose 95 (70-99(Fasting)) mg/dl Lactate (0.4-2.0) mmol/L Calcium 8.8 (8.5-10.1) mg/dl Phosphorus 2.8 (2.5-4.9) mg/dl Magnesium 2.1 (1.7-2.4) mg/dl Total Bilirubin 0.7 (0.2-1.0) mg/dl AST 18 (13-39) U/L ALT 16 (7-52) U/L Alkaline Phosphatase 64 (34-104) U/L B-Natriuretic Peptide 13 (0-100) pg/ml Total Protein 7.5 (6.0-8.3) gm/dl Albumin 3.6 (3.4-5.0) gm/dl Globulin 3.9 (2.5-4.0) gm/dl Albumin/Globulin Ratio 0.9 (0.9-2) SARS-CoV-2, RNA, NAAT (NEGATIVE) 08/16/22 08/16/22 08/16/22 Range/Units 16:46 16:47 18:28 WBC (4.8-10.8) K/ul RBC (4.63-6.08) M/uL Hgb (14.0-18.0) g/dl Hct (40.1-51.0) % MCV (80.0-100.0) fL MCH (25.0-34.0) pg MCHC (32.0-36.0) g/dL RDW Std Deviation (36.4-46.3) fL RDW Coeff of Nikia (11.5-14.5) % Plt Count (130-400) K/uL MPV (9.4-12.4) fL Immature Gran % (Auto) % Neut % (Auto) % Lymph % (Auto) % Bennett % (Auto) % Eos % (Auto) % Baso % (Auto) % Neut # (Auto) (1.4-6.5) K/uL Lymph # (Auto) (1.2-3.4) K/uL Bennett # (Auto) (0.24-0.82) K/uL Eos # (Auto) (0-0.50) K/uL Baso # (Auto) (0-0.2) K/uL Immature Gran # (Auto) (0.00-0.02) K/uL Sodium (136-145) mmol/L Potassium (3.5-5.1) mmol/L Chloride (98-107) mmol/L Carbon Dioxide (21-32) mmol/L Anion Gap (3-11) BUN (6-23) mg/dl Creatinine (0.6-1.4) mg/dl Est Cr Clr Drug Dosing ml/min Est GFR ( Amer) ml/min Est GFR (Non-Af Amer) ml/min BUN/Creatinine Ratio (10-20) Glucose (70-99(Fasting)) mg/dl Lactate 1.0 (0.4-2.0) mmol/L Calcium (8.5-10.1) mg/dl Phosphorus Cancelled (2.5-4.9) mg/dl Magnesium Cancelled (1.7-2.4) mg/dl Total Bilirubin (0.2-1.0) mg/dl AST (13-39) U/L ALT (7-52) U/L Alkaline Phosphatase (34-104) U/L B-Natriuretic Peptide (0-100) pg/ml Total Protein (6.0-8.3) gm/dl Albumin (3.4-5.0) gm/dl Globulin (2.5-4.0) gm/dl Albumin/Globulin Ratio (0.9-2) SARS-CoV-2, RNA, NAAT NEGATIVE (NEGATIVE) Imaging Data Radiologist's Impression: Chest X-Ray 08/16/22 17:01 XR chest 1V portable CLINICAL HISTORY: BLE edema COMPARISON STUDY: Chest CT April 13, 2017. FINDINGS: Lung volumes are normal. Lungs are clear. There is no pneumothorax or pleural effusion. Cardiac size is normal. Mediastinal contours are normal. There is no evidence for pulmonary edema. IMPRESSION: No acute cardiopulmonary findings. ACT 112: Negative or not required by law. Electronically signed by: Bassem Canseco M.D. 08/16/2022 5:54 PM Tibia/Fibula X-Ray 08/16/22 18:12 XR tibia fibula RT 2V, XR tibia fibula LT 2V CLINICAL HISTORY: extremity wo unds TECHNIQUE: 2 radiographic views of the bilateral legs were obtained. Comparison: None available at the time of this dictation. FINDINGS: There is no evidence of an acute fracture. Left Achilles enthesophytes are seen. There is periosteal thickening in the posterior right tibia. Soft tissue swelling is seen bilateral. Vascular calcifications are seen. IMPRESSION: No focal erosions are seen. Unilateral periosteal reaction in the right tibia is nonspecific but may be seen in osteomyelitis. If there is clinical concern, MRI is a more sensitive modality. Soft tissue swelling is seen compatible with cellulitis. ACT 112: Negative or not required by law. Electronically signed by: Griffin Rios M.D. 08/16/2022 7:05 PM Tibia/Fibula X-Ray 08/16/22 18:12 XR tibia fibula RT 2V, XR tibia fibula LT 2V CLINICAL HISTORY: extremity wo unds TECHNIQUE: 2 radiographic views of the bilateral legs were obtained. Comparison: None available at the time of this dictation. FINDINGS: There is no evidence of an acute fracture. Left Achilles enthesophytes are seen. There is periosteal thickening in the posterior right tibia. Soft tissue swelling is seen bilateral. Vascular calcifications are seen. IMPRESSION: No focal erosions are seen. Unilateral periosteal reaction in the right tibia is nonspecific but may be seen in osteomyelitis. If there is clinical concern, MRI is a more sensitive modality. Soft tissue swelling is seen compatible with cell ulitis. ACT 112: Negative or not required by law. Electronically signed by: Griffin Rios M.D. 08/16/2022 7:05 PM MDM Narrative Vital signs stable. Labs within normal limits. X-ray shows possible osteomyelitis but no gas in soft tissues. Patient be treated with broad- spectrum antibiotics Zosyn and vancomycin admitted to the [facility] hospitalist team. Impression & Plan Cellulitis, Osteomyelitis Discharge Plan Visit Data Chief Complaint: Leg Injury/Pain Stated Complaint: LEG WOUNDS ED Provider: Marito Wheat Discharge Problem: Cellulitis, Osteomyelitis Patient Disposition: Admitted As Inpatient Forms Stand Alone Forms: [facility] Prescriptions Prescriptions: No Action metoprolol tartrate 50 mg tablet 50 mg PO BID aspirin 325 mg tablet 325 mg PO QAM cyclosporine [Restasis] 0.05 % dropperette 1 drp ophthalmic (eye) [facility] cholecalciferol (vitamin D3) [Vitamin D3] 25 mcg (1,000 unit) Tablet 25 mcg PO DAILY Referrals Referrals: Manoj Godinez MD [Physician] - : Cellulitis Qualifiers: Site of cellulitis: extremity Site of cellulitis of extremity: lower extremity Laterality: unspecified laterality Qualified Code(s): L03.119 - Cellulitis of unspecified part of limb Osteomyelitis Qualifiers: Osteomyelitis type: unspecified type Osteomyelitis location: unspecified site Qualified Code(s): M86.9 - Osteomyelitis, unspecified
--- NOTE | 2022-08-16 19:07 | XRay Report ---
XR tibia fibula RT 2V, XR tibia fibula LT 2V CLINICAL HISTORY: extremity wo unds TECHNIQUE: 2 radiographic views of the bilateral legs were obtained. Comparison: None available at the time of this dictation. FINDINGS: There is no evidence of an acute fracture. Left Achilles enthesophytes are seen. There is periosteal thickening in the posterior right tibia. Soft tissue swelling is seen bilateral. Vascular calcificati ons are seen. IMPRESSION: No focal erosions are seen. Unilateral periosteal reaction in the right tibia is nonspecific but may be seen in osteomyelitis. If there is clinical concern, MRI is a more sensitive modality. Soft tissue swelling is seen compatible with cellulitis. ACT 112: Negative or not required by law. Electronically signed by: Griffin Rios M.D. 08/16/2022 7:05 PM
[2022-08-16] MEDS ORDERED: LORazepam 0.5 MG TAB PO STA (21:42)
[2022-08-17] MEDS ORDERED: ACETAMINOPHEN 325 MG TAB PO PRN (00:40)
[2022-08-17] MEDS ORDERED: NITROGLYCERIN SL 0.4 MG/TAB TAB SL PRN (00:40)
[2022-08-17] MEDS ORDERED: SODIUM CHLORIDE 0.9% 1000ML 1,000 ML IV SCH (00:40)
[2022-08-17] MEDS ORDERED: POLYETHYLENE (MIRALAX) 17 GM PACK PO PRN (00:40)
--- NOTE | 2022-08-17 00:51 | History and Physical Report ---
DATE OF ADMISSION: 08/16/2022. CHIEF COMPLAINT: Lower extremity wounds. HISTORY OF PRESENT ILLNESS: A 77-year-old male with past medical history significant for gout, dyslipidemia, hypertension, history of brain tumor, status post resection, history of gait abnormality. Lives alone, presents with lower extremity wounds. The patient currently seems like he is not taking care of himself since his 4 years ago, brought in by sisters. They went to PCP because of lower extremity swelling and seeping. The patient says this is going on for one year, but sister did not notice because he is covering them. PCP sent him to the ER. X-ray shows possible osteomyelitis. His white count is 11. Hemodynamically stable. Denies any pain. He is able to ambulate on those legs. He has complaint of some bilateral groin discomfort while lying in the bed and also there is some dry skin over the abdomen, possibly some mild swelling. Denies any chest pain, no shortness of breath, no cough, no difficulty swallowing. Appetite is okay. Has some mild headache. No blurred visions, no runny nose, no sore throat, no cough. Resting comfortably. ALLERGIES: MINOCYCLINE, STATINS. PAST MEDICAL HISTORY: As mentioned above. PAST SURGICAL HISTORY: Colonoscopy with biopsy, brain biopsy. MEDICATIONS: The patient is on aspirin 325 mg p.o. a.m., vitamin D 25 mcg p.o. daily, cyclosporine one drop ophthalmic in the eyes, metoprolol tartrate 50 mg p.o. b.i.d. FAMILY HISTORY: Significant for aunt has cancer; mother has cancer; uncle has cancer; maternal grandfather has MD; maternal grandmother has hypertension; paternal grandmother has stroke. SOCIAL HISTORY: currently. Quit smoking in 1985, smoked 1-1/2 packs a day for 20 years. Stopped drinking alcohol in 2019. No drug use. REVIEW OF SYSTEMS: As per HPI. Rest of review of systems is negative. PHYSICAL EXAMINATION: GENERAL: The patient is of moderate build, not in acute distress. VITAL SIGNS: Temperature 36.8, pulse 88, respiratory rate 20, blood pressure 136/78, oxygen 100% on room air. HEENT: Pupils equal, round and reactive to light. Oral mucosa moist. NECK: No JVD, no neck masses. CARDIOVASCULAR: S1 and S2 heard. Regular rate and rhythm. No murmur, no gallop. RESPIRATORY SYSTEM: Normal AP diameter. No accessory muscle use. No wheezing, no crackles. ABDOMEN: Soft, bowel sounds present. Possibly mild edema seen. Nontender. Dry skin. CENTRAL NERVOUS SYSTEM: Alert and oriented to name, place, and time. Could not subtract 7 from 100. Speech is clear. No facial droop. Obeys simple commands. Moves extremities. EXTREMITIES: Bilateral lower extremity erythematous chronic skin changes with some mild drainage. LABORATORY DATA: WBC 11.3, hemoglobin 12.5, hematocrit 37.5, platelets 397. Sodium 135, potassium 4, chloride 104, bicarbonate 24, BUN 13, creatinine 0.9, serum glucose 95. Lactate 1.0, calcium 8.8, phosphorus 2.8, magnesium 2.1, total bilirubin 0.7, AST 18, ALT 16, alkaline phosphatase 64. BNP 13. SARS-CoV-2 rapid test negative. IMAGING DATA: Tibia, fibula x-ray, right and left, possible osteomyelitis. Chest x-ray, no acute findings. ASSESSMENT AND PLAN: This is a 77-year-old male, who presents with bilateral lower extremity wounds. 1. Bilateral lower extremity wounds: Possible osteomyelitis. Cellulitis. The patient says this is going on for last one year. The patient is not taking care of himself since his 4 years ago. Sister brought him to the PCP and brought him to the ER. X-ray in the ER is showing possible osteomyelitis. Will empirically start on vancomycin and Zosyn. Will get MRI scan of the lower extremities to rule out osteomyelitis. If it shows osteomyelitis, will do ID consult. Closely monitor in the med tele. Wound care. Gentle fluids for now. Will also get a lower extremity Doppler to rule out any deep venous thrombosis. 2. Questionable lower extremity edema: Will get an echo study. 3. Abdominal discomfort: Questionable swelling of the abdomen. Will get a CT scan of the abdomen and pelvis. 4. History of brain mass: Status post surgery. Following with neurosurgery in [place]. He is getting serial MRI scans. 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 The patient looks like he is having some mild dementia. Could not subtract 7 from 100. Will get a CT head without contrast. 5. History of hypertension: Continue Lopressor. 6. Hyperlipidemia: Not on any medications. Will follow the lipid profile. 7. History of gout: Currently seems to be not on any medications. Seems to be on indomethacin in the past. Will follow uric acid levels. The patient seems on aspirin 325 mg, may cut back to 81 mg. 8. Deep venous thrombosis prophylaxis: Placed on Lovenox. Addendum . On floor he was having itching as per nursing staff. Possible dye allergy vs abx. gave iv benadryl. Nursing staff was also concerned about scabies? Close monitor. DISPOSITION: Closely monitor in the med tele. PT/OT prior to discharge. Social service to help with discharge planning. Job ID: [id number] [facility]
[2022-08-17] MEDS ORDERED: METOPROLOL TARTRATE 50 MG TAB PO STA (00:53)
[2022-08-17] MEDS ORDERED: OPTIRAY 350 100ml IV ONE (01:23)
[2022-08-17] MEDS ORDERED: diphenhydrAMINE 50 MG/ML VIAL IV STA (04:15)
[2022-08-17] MEDS: PIPERACILLIN/TAZOBACTAM 3.375 GM in DEXTROSE 5% 100 ML IV SCH ×3 (05:01→20:05)
[2022-08-17] MEDS: ENOXAPARIN INJ 40 MG/0.4 ML SYR SQ SCH (05:04)
[2022-08-17 06:15] LABS: Basophils # (auto) 0.03 K/uL (0-0.2); Basophils % (auto) 0.3 %; Eosinophils # (auto) 0.12 K/uL (0-0.50); Eosinophils % (auto) 1.1 %; Hematocrit (blood only) 34.3 % (40.1-51.0); Hemoglobin 11.6 g/dl (14.0-18.0); Immature Granulocytes # (auto) 0.06 K/uL (0.00-0.02); Immature Granulocytes % (auto) 0.5 %; Lymphocytes # (auto) 1.16 K/uL (1.2-3.4); Lymphocytes % (auto) 10.5 %; Mean Corpuscular Hemoglobin 28.9 pg (25.0-34.0); Mean Corpuscular Hgb Conc 33.8 g/dL (32.0-36.0); Mean Corpuscular Volume 85.3 fL (80.0-100.0); Mean Platelet Volume 9.2 fL (9.4-12.4); Monocytes % (auto) 9.9 %; Neutrophils # (auto) 8.59 K/uL (1.4-6.5); Neutrophils % (auto) 77.7 %; Platelet Count 351 K/uL (130-400); RDW Coefficient of Variation 12.2 % (11.5-14.5); RDW Standard Deviation 38.1 fL (36.4-46.3); Red Blood Count 4.02 M/uL (4.63-6.08); White Blood Count 11.06 K/ul (4.8-10.8)
[2022-08-17 06:34] LABS: BUN Creatinine Ratio 13.5 (10-20); Calcium 8.4 mg/dl (8.5-10.1); Chol HDL Ratio 3.5 (0-5); Creatinine Clr Calc Pharmacy 71.8 ml/min; Est GFR (African American) 94.3 ml/min; Est GFR (Non-African American) 81.3 ml/min; Potassium 4.1 mmol/L (3.5-5.1); Uric Acid 6.3 mg/dl (2.6-7.2)
--- NOTE | 2022-08-17 07:18 | Ultrasound Report ---
BILATERAL LOWER EXTREMITY VENOUS DOPPLER CLINICAL HISTORY: b/l lower extremity edema and erythema. dvt? COMPARISON STUDY: No previous studies for comparison. TECHNIQUE: Sonography of the deep venous system of the bilateral lower extremities was performed. Co mpression and augmentation were evaluated. FINDINGS: The bilateral common femoral, superficial femoral and popliteal veins were compressible. A ugmentation was normal. Flow was shown within the deep calf vessels. IMPRESSION: No evidence of deep venous thrombus within the bilateral lower extremities. ACT 112: Negative or not required by law. Electronically signed by: Bassem Canseco M.D. 08/17/2022 7:16 AM
--- NOTE | 2022-08-17 07:26 | Magnetic Resonance Report ---
MR lower leg RT wo con CLINICAL HISTORY: Bilateral lower leg erythema and swelling. Infection/osteomyelitis. COMPARISON STUDY: Right tibia and fibula radiographs August 16, 2022. TECHNIQUE: Utilizing a 1.5 Marlene magnet and dedicated coil, multiplanar, [facility] without intravenous contrast. Patient was unable to tolerate postcontrast imaging. FINDINGS: Please note that the MRI of the left lower leg be reported separately. This exam is moderat stephanie compromised by motion artifact. There is no marrow edema within the right tibia or fibula to sugg est osteomyelitis. Periosteal thickening within the right tibia described on radiographs is chronic a nd likely insertional. There is no suspicious marrow replacement within the right tibia or fibula. No fluid collection within the right lower leg is noted. Note is made of extensive subcutaneous fluid w ithin the right lower leg. In addition, there is increased fluid signal within the musculature of the lower leg as well as a small amount of fluid along the fascia. Although sensitivity is diminished gi ceasar MR technique, there is no evidence for soft tissue gas. IMPRESSION: 1. No evidence for acute osteomyelitis within the right tibia or fibula. 2. Extensive subcutaneous fluid of the right lower leg. This could reflect cellulitis or edema. No fl uid collection on unenhanced exam to suggest abscess. 3. Increased fluid signal within the musculature of the right lower leg as well as a small amount of fascial fluid. This edema is also nonspecific and myositis/fasciitis are within the differential. No convincing evidence for soft tissue gas by MRI. 4. Exam compromised by motion artifact. ACT 112: Negative or not required by law. Electronically signed by: Bassem Canseco M.D. 08/17/2022 7:23 AM
--- NOTE | 2022-08-17 07:40 | CT Scan Report ---
CT OF THE HEAD WITHOUT CONTRAST CLINICAL HISTORY: hx of brain mass. dementia COMPARISON STUDY: Head CT April 12, 2017. MRI of the brain July 05, 2018. CT DOSE: 1224.03 mGy.cm TECHNIQUE: Helical axial images of the head were obtained without IV contrast. Automated exposure con trol was utilized for the study. A dose lowering technique was utilized adhering to the principles o f ALARA. FINDINGS: No acute intracranial hemorrhage, midline shift or mass effect is present. Ventricular syst em is unremarkable. Basal cisterns are patent. There are no extra-axial collections. White matter hyp odensity suggests small vessel disease. Postoperative findings within the right frontal bone are note d. There is hypodensity with mild volume loss within the right frontal lobe. This favors postsurgical change. Although suboptimally assessed on this unenhanced CT, there is no definite evidence for resi dual or recurrent tumor. There are no significant calvarial abnormalities. IMPRESSION: No acute intracranial findings. ACT 112: Negative or not required by law. Electronically signed by: Bassem Canseco M.D. 08/17/2022 7:38 AM
--- NOTE | 2022-08-17 08:27 | CT Scan Report ---
ABDOMEN AND PELVIS CT WITH IV CONTRAST CT DOSE: HISTORY: Generalized abd pain, swelling? lower ext swelling TECHNIQUE: Multiaxial CT images of the abdomen and pelvis were performed following the use of intrave nous contrast. A dose lowering technique was utilized adhering to the principles of ALARA. COMPARISON STUDY: Abdomen and pelvis CT 04/13/2017. FINDINGS: The lung bases are essentially clear. No pneumoperitoneum. No pneumatosis. No acute fractur es identified. A few scattered hypodense lesions within the liver likely represent cysts. These are s imilar to the prior study. Multiple punctate calcified granulomas are again noted. The adrenal glands , pancreas, and gallbladder are unremarkable. Mild bilateral perinephric edema which is likely chroni c. The kidneys enhance normally. No hydronephrosis. The main portal vein is patent. Mild calcified pl aque within the normal caliber abdominal aorta. Small fat-containing bilateral inguinal hernias. Ther e is mild bilateral inguinal lymphadenopathy. There are a few mildly enlarged retroperitoneal and thomas ac lymph nodes. These have increased in size in the interval. Dominant left para-aortic lymph node me asures 18 x 11 mm on image 217. The bladder is mildly distended. No bladder wall thickening. There ar e few punctate bladder stones identified. The iliac vessels appear patent. No pelvic free fluid. Mode rate fecal retention is noted. No bowel wall thickening or obstruction. Normal appendix. IMPRESSION: 1. No bowel wall thickening or obstruction. 2. Normal appendix. 3. Mild retroperitoneal, iliac, and inguinal lymphadenopathy which is new from the prior study. This nonspecific. Consider six-month abdomen and pelvis CT follow-up to exclude the possibility of a devel oping lymphoproliferative disorder. 4. A few punctate bladder stones. The bladder is mildly distended. 5. Moderate fecal retention. ACT 112: Positive. There are findings on this exam that require communication between the performing entity and the patient following Patient Test Result Information Act ([place] Act 112) guidelines. Electronically signed by: Evans Montgomery M.D. 08/17/2022 8:25 AM
[2022-08-17] MEDS ORDERED: ASPIRIN 325 MG ECTAB PO SCH (09:00)
[2022-08-17] MEDS: METOPROLOL TARTRATE 50 MG TAB PO SCH ×2 (11:00→23:30)
--- NOTE | 2022-08-17 11:20 | Magnetic Resonance Report ---
MR lower leg LT wo con HISTORY: Left lower leg swelling. infection. osteomyelitis TECHNIQUE: Multiplanar multisequence MRI of the left lower leg was performed without contrast accordi ng to standard departmental protocol. COMPARISON STUDY: Left tibia/fibula 08/16/2022. FINDINGS: There is motion artifact resulting in suboptimal evaluation. Normal marrow signal intensity within the left tibia and fibula. No MR evidence for osteomyelitis. No fracture or dislocation withi n the left lower leg. No soft tissue gas by MRI. Extensive subcutaneous edema and skin thickening thr oughout the left lower leg. No loculated fluid collections on this noncontrast study to suggest an ab scess. There is also there is mild edema within the musculature of the left lower leg as well as a sm all amount of fluid along the deep fascial planes. IMPRESSION: 1. No evidence for osteomyelitis within the left tibia or fibula. 2. Extensive subcutaneous fluid and skin thickening within the left lower leg which could represent c ellulitis or edema. No loculated fluid collections on this unenhanced exam to suggest an abscess. 3. Small amount of edema/fluid within the musculature and deep fascial planes of the left lower leg w hich could be due to edema or a nonspecific myositis/fasciitis. ACT 112: Negative or not required by law. Electronically signed by: Evans Montgomery M.D. 08/17/2022 8:59 AM
[2022-08-17] MEDS: CHOLECALCIFEROL 1,000 UNITS 25 MCG TAB PO SCH (12:25)
[2022-08-17] MEDS: VANCOMYCIN HCL 1,500 MG in SODIUM CHLORIDE 0.9% 500 ML IV SCH (12:28)
--- NOTE | 2022-08-17 12:33 | Pharmacy Report ---
Pharmacy PK ABX Note - Date of Service August 17, 2022 - Assessment and Plan Assessment 77 year old M receiving IV Vancomycin + Zosyn for treatment of B/L lower extremity cellulitis, no osteomyelitis per MRIs. BCs pending Afebrile, WBC 11, renal function stable Plan Vancomycin * Loading dose: 2250 mg IV x 1 * Maintenance dose: 1500 mg IV every 24 hours * Regimen is predicted to achieve target AUC/SAY of 400-600 mg/L.hr * Random level ordered for: 08/19/22 * Pharmacy has transitioned to AUC monitoring for vancomycin. AUC/SAY is the preferred PK/PD target and is associated with decreased risk of nephrotoxicity compared to traditional trough targets. Zosyn 3.375g IV Q8H for CrCl > 20ml/min Pharmacy will continue to follow and will adjust dose/frequency as necessary. Thank you.
--- NOTE | 2022-08-17 12:45 | Hospitalist Progress Note ---
Date of Service August 17, 2022 Assessment & Plan (1) Bilateral lower leg cellulitis: (2) Bilateral leg ulcer: Plan: Patient is a 77-year-old male was sent from his primary care office for bilateral lower extremity wounds. Wounds has been ongoing for last 1 year. Patient lives alone since his and has not seek any medical attention. He was brought to the hospital by his sister. X-ray in the ED shows possible osteomyelitis. MRI of both bilateral extremities were done. No osteomyelitis within bilateral tibia/fibula. Extensive subcutaneous fluid and skin thickening within both legs. Also small amount of edema/fluid within the musculature in bilateral extremities could be due to edema/nonspecific myositis. Echocardiogram was done for the lower extremity edema;EF of 55 to 60% with normal systolic function. Afebrile since admission. Leukocytosis present. Plan: On vancomycin and Zosyn; continue for now. Will obtain podiatry evaluation to assess any need for debridement. Also, follow recommendation around wound care. Wound care consulted; appreciate recs. ESR and CRP ordered. CK ordered. (3) Abdominal discomfort: (4) Constipation: Plan: Also reported abdominal discomfort on admission. CT abdomen and pelvis done; shows mild retroperitoneal, iliac and inguinal lymphadenopathy. Nonspecific. Follow-up CT recommended. Moderate fecal retention. Start bowel regimen with MiraLAX and milk of magnesia daily. Plan Other conditions; 1) History of brain mass: Status post surgery. Following with neurosurgery in [place]. He is getting serial MRI scans. 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 The patient looks like he is having some mild dementia. CT head without contrast is unremarkable. Will obtain vitamin B12 level and TSH. On aspirin 325 mg; decreased to 81 mg daily. 2) History of hypertension: Continue Lopressor. 3) Hyperlipidemia: Not on any medications. Medical history of 66 and LDL of 93; continue dietary measures. 4) History of gout: Currently seems to be not on any medications. Seems to be on indomethacin in the past. Uric acid within normal limits. Monitor for now. 5). Deep venous thrombosis prophylaxis: Placed on Lovenox. Admission and Anticipated Discharge Date Admission Date: August 16, 2022 Subjective Patient seen and examined at bedside. Lying in the bed; appears comfortable. He denies any pain or discomfort. Review of Systems Review of Systems: All systems reviewed & are unremarkable except as noted in Subjective Physical Exam Physical Exam: Constitutional: WD/WN, vitals as above, NAD, sitting up in bed, pleasant, conversing easily Head: Normocephalic, Atraumatic Respiratory: Bilateral clear vesicular breath sound. Cardiovascular: RRR, no murmur, no edema Vessels: no JVD or carotid bruit Chest: normal inspection of chest Abdomen: normal bowel sounds, soft, nontender, no hepatosplenomegaly Musculoskeletal: See wound pictures for more detail. Has erythema with overlying scabs on his bilateral lower extremity Skin: no rashes, warm and dry normal turgor Neurologic: PERRL, EOMI, accommodation nl, no face palsy, no dysarthria CN's II- XI intact bilaterally and moves all extremities Psychiatric: A+Ox3, euthymic affect Lymphatic: no cervical or axillary lymphadenopathy : deferred Results & Data Results & Data ([facility]) Vital Signs (Past 12 Hours) Vital Signs Temp Pulse Pulse Resp BP BP Pulse Ox 08/17/22 08:27 37.1 C 93 H 18 131/62 96 08/17/22 07:41 98 H 08/17/22 00:46 78 17 167/92 H 100 08/17/22 00:45 Pulse Ox O2 Del Method O2 Del Method 08/17/22 08:27 Room Air 08/17/22 07:41 08/17/22 00:46 Room Air 08/17/22 00:45 100 Room Air Laboratory Results Laboratory Results WBC 11.06 K/ul (4.8-10.8) H 08/17/22 05:34 RBC 4.02 M/uL (4.63-6.08) L 08/17/22 05:34 Hgb 11.6 g/dl (14.0-18.0) L 08/17/22 05:34 Hct 34.3 % (40.1-51.0) L 08/17/22 05:34 MCV 85.3 fL (80.0-100.0) 08/17/22 05:34 MCH 28.9 pg (25.0-34.0) 08/17/22 05:34 MCHC 33.8 g/dL (32.0-36.0) 08/17/22 05:34 RDW Std Deviation 38.1 fL (36.4-46.3) 08/17/22 05:34 RDW Coeff of Nikia 12.2 % (11.5-14.5) 08/17/22 05:34 Plt Count 351 K/uL (130-400) 08/17/22 05:34 MPV 9.2 fL (9.4-12.4) L 08/17/22 05:34 Immature Gran % (Auto) 0.5 % 08/17/22 05:34 Neut % (Auto) 77.7 % 08/17/22 05:34 Lymph % (Auto) 10.5 % 08/17/22 05:34 [place] % (Auto) 9.9 % 08/17/22 05:34 Eos % (Auto) 1.1 % 08/17/22 05:34 Baso % (Auto) 0.3 % 08/17/22 05:34 Neut # (Auto) 8.59 K/uL (1.4-6.5) H 08/17/22 05:34 Lymph # (Auto) 1.16 K/uL (1.2-3.4) L 08/17/22 05:34 [place] # (Auto) 1.10 K/uL (0.24-0.82) H 08/17/22 05:34 Eos # (Auto) 0.12 K/uL (0-0.50) 08/17/22 05:34 Baso # (Auto) 0.03 K/uL (0-0.2) 08/17/22 05:34 Immature Gran # (Auto) 0.06 K/uL (0.00-0.02) H 08/17/22 05:34 Sodium 135 mmol/L (136-145) L 08/17/22 05:34 Potassium 4.1 mmol/L (3.5-5.1) 08/17/22 05:34 Chloride 105 mmol/L (98-107) 08/17/22 05:34 Carbon Dioxide 22 mmol/L (21-32) 08/17/22 05:34 Anion Gap 8 (3-11) 08/17/22 05:34 BUN 12 mg/dl (6-23) 08/17/22 05:34 Creatinine 0.89 mg/dl (0.6-1.4) 08/17/22 05:34 Est Cr Clr Drug Dosing 71.8 ml/min 08/17/22 05:34 Est GFR ( Amer) 94.3 ml/min 08/17/22 05:34 Est GFR (Non-Af Amer) 81.3 ml/min 08/17/22 05:34 BUN/Creatinine Ratio 13.5 (10-20) 08/17/22 05:34 Glucose 82 mg/dl (70-99(Fasting)) 08/17/22 05:34 Lactate 1.0 mmol/L (0.4-2.0) 08/16/22 18:28 Uric Acid 6.3 mg/dl (2.6-7.2) 08/17/22 05:34 Calcium 8.4 mg/dl (8.5-10.1) L 08/17/22 05:34 Phosphorus 2.8 mg/dl (2.5-4.9) 08/16/22 16:46 Phosphorus Cancelled 08/16/22 16:46 Magnesium 2.0 mg/dl (1.7-2.4) 08/17/22 05:34 Total Bilirubin 0.7 mg/dl (0.2-1.0) 08/16/22 16:46 AST 18 U/L (13-39) 08/16/22 16:46 ALT 16 U/L (7-52) 08/16/22 16:46 Alkaline Phosphatase 64 U/L (34-104) 08/16/22 16:46 B-Natriuretic Peptide 13 pg/ml (0-100) 08/16/22 16:46 Total Protein 7.5 gm/dl (6.0-8.3) 08/16/22 16:46 Albumin 3.6 gm/dl (3.4-5.0) 08/16/22 16:46 Globulin 3.9 gm/dl (2.5-4.0) 08/16/22 16:46 Albumin/Globulin Ratio 0.9 (0.9-2) 08/16/22 16:46 Triglycerides 66 mg/dl (0-150) 08/17/22 05:34 Cholesterol 149 mg/dl (0-200) 08/17/22 05:34 LDL Cholesterol, Calc 93 mg/dl 08/17/22 05:34 VLDL Cholesterol, Calc 13 mg/dl (0-30) 08/17/22 05:34 HDL Cholesterol 43 mg/dl 08/17/22 05:34 Cholesterol/HDL Ratio 3.5 (0-5) 08/17/22 05:34 SARS-CoV-2, RNA, NAAT NEGATIVE (NEGATIVE) 08/16/22 16:47 Impressions Chest X-Ray 08/16/22 17:01 XR chest 1V portable CLINICAL HISTORY: BLE edema COMPARISON STUDY: Chest CT April 13, 2017. FINDINGS: Lung volumes are normal. Lungs are clear. There is no pneumothorax or pleural effusion. Cardiac size is normal. Mediastinal contours are normal. There is no evidence for pulmonary edema. IMPRESSION: No acute cardiopulmonary findings. ACT 112: Negative or not required by law. Electronically signed by: Bassem Canseco M.D. 08/16/2022 5:54 PM Tibia/Fibula X-Ray 08/16/22 18:12 XR tibia fibula RT 2V, XR tibia fibula LT 2V CLINICAL HISTORY: extremity wo unds TECHNIQUE: 2 radiographic views of the bilateral legs were obtained. Comparison: None available at the time of this dictation. FINDINGS: There is no evidence of an acute fracture. Left Achilles enthesophytes are seen. There is periosteal thickening in the posterior right tibia. Soft tissue swelling is seen bilateral. Vascular calcifications are seen. IMPRESSION: No focal erosions are seen. Unilateral periosteal reaction in the right tibia is nonspecific but may be seen in osteomyelitis. If there is clinical concern, MRI is a more sensitive modality. Soft tissue swelling is seen compatible with cellulitis. ACT 112: Negative or not required by law. Electronically signed by: Griffin Rios M.D. 08/16/2022 7:05 PM Abdomen/Pelvis CT 08/17/22 00:[address] WITH IV CONTRAST CT DOSE: HISTORY: Generalized abd pain, swelling? lower ext swelling TECHNIQUE: Multiaxial CT images of the abdomen and pelvis were performed following the use of intravenous contrast. A dose lowering technique was utilized adhering to the principles of ALARA. COMPARISON STUDY: Abdomen and pelvis CT 04/13/2017. FINDINGS: The lung bases are essentially clear. No pneumoperitoneum. No pneumatosis. No acute fractures identified. A few scattered hypodense lesions within the liver likely represent cysts. These are similar to the prior study. Multiple punctate calcified granulomas are again noted. The adrenal glands, pancreas, and gallbladder are unremarkable. Mild bilateral perinephric edema which is likely chronic. The kidneys enhance normally. No hydronephrosis. The main portal vein is patent. Mild calcified plaque within the normal caliber abdominal aorta. Small fat-containing bilateral inguinal hernias. There is mild bilateral inguinal lymphadenopathy. There are a few mildly enlarged retroperitoneal and iliac lymph nodes. These have increased in size in the interval. Dominant left para-aortic lymph node measures 18 x 11 mm on image 217. The bladder is mildly distended. No bladder wall thickening. There are few punctate bladder stones identified. The iliac vessels appear patent. No pelvic free fluid. Moderate fecal retention is noted. No bowel wall thickening or obstruction. Normal appendix. IMPRESSION: 1. No bowel wall thickening or obstruction. 2. Normal appendix. 3. Mild retroperitoneal, iliac, and inguinal lymphadenopathy which is new from the prior study. This nonspecific. Consider six-month abdomen and pelvis CT follow-up to exclude the possibility of a developing lymphoproliferative disorder. 4. A few punctate bladder stones. The bladder is mildly distended. 5. Moderate fecal retention. ACT 112: Positive. There are findings on this exam that require communication between the performing entity and the patient following Patient Test Result Information Act ([place] Act 112) guidelines. Electronically signed by: Evans Montgomery M.D. 08/17/2022 8:[address] 08/17/22 00:40 CT OF THE HEAD WITHOUT CONTRAST CLINICAL HISTORY: hx of brain mass. dementia COMPARISON STUDY: Head CT April 12, 2017. MRI of the brain July 05, 2018. CT DOSE: 1224.03 mGy.cm TECHNIQUE: Helical axial images of the head were obtained without IV contrast. Automated exposure control was utilized for the study. A dose lowering technique was utilized adhering to the principles of ALARA. FINDINGS: No acute intracranial hemorrhage, midline shift or mass effect is present. Ventricular system is unremarkable. Basal cisterns are patent. There are no extra-axial collections. White matter hypodensity suggests small vessel disease. Postoperative findings within the right frontal bone are noted. There is hypodensity with mild volume loss within the right frontal lobe. This favors postsurgical change. Although suboptimally assessed on this unenhanced CT, there is no definite evidence for residual or recurrent tumor. There are no significant calvarial abnormalities. IMPRESSION: No acute intracranial findings. ACT 112: Negative or not required by law. Electronically signed by: Bassem Canseco M.D. 08/17/2022 7:38 AM Venous Doppler Study 08/17/22 00:40 BILATERAL LOWER EXTREMITY VENOUS DOPPLER CLINICAL HISTORY: b/l lower extremity edema and erythema. dvt? COMPARISON STUDY: No previous studies for comparison. TECHNIQUE: Sonography of the deep venous system of the bilateral lower extremities was performed. Compression and augmentation were evaluated. FINDINGS: The bilateral common femoral, superficial femoral and popliteal veins were compressible. Augmentation was normal. Flow was shown within the deep calf vessels. IMPRESSION: No evidence of deep venous thrombus within the bilateral lower extremities. ACT 112: Negative or not required by law. Electronically signed by: Bassem Canseco M.D. 08/17/2022 7:16 AM Lower Extremity MRI 08/17/22 00:49 MR lower leg RT wo con CLINICAL HISTORY: Bilateral lower leg erythema and swelling. Infection/osteomyelitis. COMPARISON STUDY: Right tibia and fibula radiographs August 16, 2022. TECHNIQUE: Utilizing a 1.5 Marlene magnet and dedicated coil, multiplanar, multi echo imaging of the right lower leg was performed without intravenous contrast. Patient was unable to tolerate postcontrast imaging. FINDINGS: Please note that the MRI of the left lower leg be reported separately. This exam is moderately compromised by motion artifact. There is no marrow edema within the right tibia or fibula to suggest osteomyelitis. Periosteal thickening within the right tibia described on radiographs is chronic and likely insertional. There is no suspicious marrow replacement within the right tibia or fibula. No fluid collection within the right lower leg is noted. Note is made of extensive subcutaneous fluid within the right lower leg. In addition, there is increased fluid signal within the musculature of the lower leg as well as a small amount of fluid along the fascia. Although sensitivity is diminished given MR technique, there is no evidence for soft tissue gas. IMPRESSION: 1. No evidence for acute osteomyelitis within the right tibia or fibula. 2. Extensive subcutaneous fluid of the right lower leg. This could reflect cellulitis or edema. No fluid collection on unenhanced exam to suggest abscess. 3. Increased fluid signal within the musculature of the right lower leg as well as a small amount of fascial fluid. This edema is also nonspecific and myositis/fasciitis are within the differential. No convincing evidence for soft tissue gas by MRI. 4. Exam compromised by motion artifact. ACT 112: Negative or not required by law. Electronically signed by: Bassem Canseco M.D. 08/17/2022 7:23 AM
[2022-08-17 13:41] LABS: C Reactive Protein 14.14 mg/dl (0-0.5)
[2022-08-17] MEDS: POLYETHYLENE (MIRALAX) 17 GM PACK PO SCH (14:00)
[2022-08-17] MEDS: MAGNESIUM HYDROXIDE SUSP 30 ML UDC PO SCH (14:00)
--- NOTE | 2022-08-17 15:49 | Orthopedic Consultation ---
Date of Consultation August 17, 2022 Assessment & Plan (1) Bilateral leg ulcer: Patient seen, evaluated, and treated. Reviewed MRI findings and MRI images. No signs of osteomyelitis were noted. 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 (2) Bilateral lower leg cellulitis: (3) Cellulitis: History of Present Illness Attending Physician: Jackson Castillo MD History of Present Illness Patient is a 77-year-old male seen at bedside in no distress for bilateral lower extremity cellulitis. Patient has a past medical history significant for gout, dyslipidemia, hypertension, history of brain tumor, status post resection, history of gait abnormality. Patient was brought to [facility] ED earlier today by his sister. The Patient lives alone. He presented with lower extremity wounds present for one year. Patient and sister went to PCP because of lower extremity swelling and seeping. PCP sent him to the ER.Intitial X-ray shows possible osteomyelitis. His white count was 11. Patient denies any pain. Allergies Allergy/AdvReac Type Severity Reaction Status Date / Time minocycline Allergy Hives Verified 08/16/22 18:58 [id number] Reductase AdvReac Muscle Pain Verified 08/16/22 18:58 Inhibitor Home Medications Medication Instructions Recorded Confirmed Type aspirin 325 mg tablet 325 mg PO QAM 04/02/20 08/16/22 History metoprolol tartrate 50 mg tablet 50 mg PO BID 04/02/20 08/16/22 History cholecalciferol (vitamin D3) 25 25 mcg PO DAILY 08/16/22 08/16/22 History mcg (1,000 unit) tablet (Vitamin D3) cyclosporine 0.05 % eye drops in a 1 drp ophthalmic (eye) [facility] 08/16/22 08/16/22 History dropperette (Restasis) Patient History Medical History GERD (gastroesophageal reflux disease) Hyperlipidemia Hypertension Surgical History History of cataract surgery Social History Smoking Status: Former smoker Second Hand Exposure: No; Do You Dip or Chew Tobacco: No; Tobacco Cessation Education Requested by Patient: No Hx Alcohol Use: No Hx Substance Use: No Preferred Language: Telugu Communication Ability: Effective 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 Neurologic: Epicritic sensation intact Psychiatric: Orientation: alert, oriented to person, oriented to place and cooperative Results & Data ([facility]) Vital Signs (Past 12 Hours) Vital Signs Temp Pulse Pulse Resp BP Pulse Ox O2 Del Method 08/17/22 08:27 37.1 C 93 H 18 131/62 96 Room Air 08/17/22 07:41 98 H Laboratory Results WBC 11.3, hemoglobin 12.5, hematocrit 37.5, platelets 397. Sodium 135, potassium 4, chloride 104, bicarbonate 24, BUN 13, creatinine 0.9, serum glucose 95. Lactate 1.0, calcium 8.8, phosphorus 2.8, magnesium 2.1, total bilirubin 0.7, AST 18, ALT 16, alkaline phosphatase 64. BNP 13. SARS-CoV-2 rapid test negative. Diagnostic Findings MR lower leg RT wo con CLINICAL HISTORY: Bilateral lower leg erythema and swelling. Infection/osteomyelitis. COMPARISON STUDY: Right tibia and fibula radiographs August 16, 2022. TECHNIQUE: Utilizing a 1.5 Marlene magnet and dedicated coil, multiplanar, multi echo imaging of the right lower leg was performed without intravenous contrast. Patient was unable to tolerate postcontrast imaging. FINDINGS: Please note that the MRI of the left lower leg be reported separately. This exam is moderately compromised by motion artifact. There is no marrow edema within the right tibia or fibula to suggest osteomyelitis. Periosteal thickening within the right tibia described on radiographs is chronic and likely insertional. There is no suspicious marrow replacement within the right tibia or fibula. No fluid collection within the right lower leg is noted. Note is made of extensive subcutaneous fluid within the right lower leg. In addition, there is increased fluid signal within the musculature of the lower leg as well as a small amount of fluid along the fascia. Although sensitivity is diminished given MR technique, there is no evidence for soft tissue gas. IMPRESSION: 1. No evidence for acute osteomyelitis within the right tibia or fibula. 2. Extensive subcutaneous fluid of the right lower leg. This could reflect cellulitis or edema. No fluid collection on unenhanced exam to suggest abscess. 3. Increased fluid signal within the musculature of the right lower leg as well as a small amount of fascial fluid. This edema is also nonspecific and myositis/fasciitis are within the differential. No convincing evidence for soft tissue gas by MRI. 4. Exam compromised by motion artifact. ACT 112: Negative or not required by law. Electronically signed by: Bassem Canseco M.D. 08/17/2022 7:23 AM (1) Cellulitis Laterality: unspecified laterality Site of cellulitis: extremity Site of cellulitis of extremity: lower extremity Qualified Code(s): L03.119 - Cellulitis of unspecified part of limb
[2022-08-18] MEDS: PIPERACILLIN/TAZOBACTAM 3.375 GM in DEXTROSE 5% 100 ML IV SCH ×3 (04:37→20:49)
[2022-08-18] MEDS: ENOXAPARIN INJ 40 MG/0.4 ML SYR SQ SCH (05:03)
[2022-08-18 07:45] LABS: Creatinine Clr Calc Pharmacy 54.2 ml/min; Est GFR (African American) 86.8 ml/min; Est GFR (Non-African American) 74.9 ml/min
[2022-08-18] MEDS: ASPIRIN 81 MG CHEW PO SCH (10:00)
[2022-08-18] MEDS: METOPROLOL TARTRATE 50 MG TAB PO SCH ×2 (10:01→20:52)
[2022-08-18] MEDS: CHOLECALCIFEROL 1,000 UNITS 25 MCG TAB PO SCH (10:01)
[2022-08-18] MEDS: POLYETHYLENE (MIRALAX) 17 GM PACK PO SCH (10:02)
[2022-08-18] MEDS: MAGNESIUM HYDROXIDE SUSP 30 ML UDC PO SCH (10:02)
[2022-08-18] MEDS: VANCOMYCIN HCL 1,500 MG in SODIUM CHLORIDE 0.9% 500 ML IV SCH (13:17)
--- NOTE | 2022-08-18 15:44 | Hospitalist Progress Note ---
Date of Service August 18, 2022 Assessment & Plan (1) Bilateral lower leg cellulitis: (2) Bilateral leg ulcer: Plan: per Dr. Castillo's notes with addendum: Patient is a 77-year-old male was sent from his primary care office for bilateral lower extremity wounds. Wounds has been ongoing for last 1 year. Patient lives alone since his and has not seek any medical attention. He was brought to the hospital by his sister. X-ray in the ED shows possible osteomyelitis. MRI of both bilateral extremities were done. No osteomyelitis within bilateral tibia/fibula. Extensive subcutaneous fluid and skin thickening within both legs. Also small amount of edema/fluid within the musculature in bilateral extremities could be due to edema/nonspecific myositis. Echocardiogram was done for the lower extremity edema;EF of 55 to 60% with normal systolic function. Afebrile since admission. Leukocytosis present. Plan: On vancomycin and Zosyn; continue for now. Will obtain podiatry evaluation to assess any need for debridement. Also, follow recommendation around wound care. Wound care consulted; appreciate recs. ESR and CRP ordered. CK ordered. 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 CT abdomen and pelvis done; shows mild retroperitoneal, iliac and inguinal lymphadenopathy. Nonspecific. Follow-up CT recommended. Moderate fecal retention. bowel regimen with MiraLAX and milk of magnesia daily. Plan Other conditions; 1) History of brain mass: Status post surgery. Following with neurosurgery in [facility]. He is getting serial MRI scans. 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 The patient looks like he is having some mild dementia. CT head without contrast is unremarkable. Will obtain vitamin B12 level and TSH. On aspirin 325 mg; decreased to 81 mg daily. 2) History of hypertension: Continue Lopressor. 3) Hyperlipidemia: Not on any medications. Medical history of 66 and LDL of 93; continue dietary measures. 4) History of gout: Currently seems to be not on any medications. Seems to be on indomethacin in the past. Uric acid within normal limits. Monitor for now. 5). Deep venous thrombosis prophylaxis: Placed on Lovenox. Admission and Anticipated Discharge Date Admission Date: August 16, 2022 Subjective Follow-up for bilateral lower extremity wounds/injuries, etc. Seen resting in bed, sitting up, comfortable, in good spirits States he feels fine overall Less pain/tenderness on the lower extremities No fevers or chills No chest pain, palpitations, dizziness Denies depression, anxiety No other symptoms Review of Systems Review of Systems: all noted and negative except for above Physical Exam Physical Exam: General- oriented x 3, not in distress, speaks in sentences with no effort or accessory muscle use Eyes- anicteric Neck- no JVD Lungs- clear BS bilaterally, no rales/wheezes Heart- normal rate, regular rhythm; no murmurs Abdomen- normal bowel sounds, nondistended, soft, nontender Extremities- grade 1 lower ext edema, dressing/fabian hose in place, bilateral feet- moderate edema, and erythema, dry skin, no calf tenderness Neuro- alert, oriented x 3; no gross focal neurologic deficits Skin- warm & dry Results & Data Results & Data ([facility]) Vital Signs (Past 12 Hours) Vital Signs Temp Pulse Resp BP BP Pulse Ox O2 Del Method 08/18/22 10:56 37.1 C 80 18 131/62 96 Room Air 08/18/22 04:05 36.9 C 84 18 121/62 96 Room Air all noted and reviewed including below
[2022-08-18] MEDS ORDERED: CETIRIZINE HCL 10 MG TABLET PO ONE (16:59)
[2022-08-18 23:08] LABS: Appearance Urine Clear (Clear); Bilirubin Urine Negative (Negative); Blood Urine Negative (Negative); Color Urine Yellow; Glucose Urine UA Negative (Negative); Ketones Urine Negative (Negative); Leukocyte Esterase Urine Negative (Negative); Nitrite Urine Negative (Negative); Protein Urine Negative (Negative); Specific Gravity Urine 1.008 (1.000-1.030); Urobilinogen Urine Negative (Negative)
[2022-08-19] MEDS: PIPERACILLIN/TAZOBACTAM 3.375 GM in DEXTROSE 5% 100 ML IV SCH ×2 (03:59→12:55)
[2022-08-19 06:55] LABS: Creatinine Clr Calc Pharmacy 53.1 ml/min; Est GFR (African American) 83.6 ml/min; Est GFR (Non-African American) 72.1 ml/min
[2022-08-19] MEDS: ENOXAPARIN INJ 40 MG/0.4 ML SYR SQ SCH (07:58)
[2022-08-19] MEDS: CETIRIZINE HCL 10 MG TABLET PO SCH (08:03)
[2022-08-19] MEDS: ASPIRIN 81 MG CHEW PO SCH (08:03)
[2022-08-19] MEDS: MAGNESIUM HYDROXIDE SUSP 30 ML UDC PO SCH (08:04)
[2022-08-19] MEDS: METOPROLOL TARTRATE 50 MG TAB PO SCH ×2 (08:04→20:30)
[2022-08-19] MEDS: POLYETHYLENE (MIRALAX) 17 GM PACK PO SCH (08:04)
[2022-08-19] MEDS: CHOLECALCIFEROL 1,000 UNITS 25 MCG TAB PO SCH (08:04)
[2022-08-19] MEDS: ADVANCED PROBIOTIC 1250 MG CAPSULE PO SCH (10:00)
--- NOTE | 2022-08-19 11:11 | Pharmacy Report ---
Pharmacy Vanc AUC Short Note - Date of Service August 19, 2022 - Assessment & Plan Assessment 77 year old M receiving IV Vancomycin + Zosyn for treatment of B/L lower extremity cellulitis, no osteomyelitis per MRIs. Afebrile and renal function stable at this time. Weight clarified with RN due to significant weight change in the last 48-72 hours. First day of therapy: 08/16/22 Plan Vancomycin * Increased frequency to vancomycin 1,500 mg IV q18h starting 08/20/22 at 0600. * AUC/SAY is the preferred PK/PD target for vancomycin * AUC guided dosing is effective and associated with decreased risk of nephrotoxicity compared to traditional trough targets * Trough level of 15.6 mcg/mL is predicted to achieve target AUC/SAY of 400-600 mg/L.hr and may be associated with a 11 % risk of nephrotoxicity * Random level from today (08/19/22): 11.5 drawn at approximately 0530. Pharmacy will continue to follow and will adjust dose/frequency as necessary. Thank you.
[2022-08-19] MEDS: VANCOMYCIN HCL 1,500 MG in SODIUM CHLORIDE 0.9% 500 ML IV SCH (12:55)
--- NOTE | 2022-08-19 14:12 | Hospitalist Progress Note ---
Date of Service August 19, 2022 Assessment & Plan (1) Bilateral lower leg cellulitis: (2) Bilateral leg ulcer: Plan: per Dr. Castillo's notes with addendum: Patient is a 77-year-old male was sent from his primary care office for bilateral lower extremity wounds. Wounds has been ongoing for last 1 year. Patient lives alone since his and has not seek any medical attention. He was brought to the hospital by his sister. X-ray in the ED shows possible osteomyelitis. MRI of both bilateral extremities were done. No osteomyelitis within bilateral tibia/fibula. Extensive subcutaneous fluid and skin thickening within both legs. Also small amount of edema/fluid within the musculature in bilateral extremities could be due to edema/nonspecific myositis. Echocardiogram was done for the lower extremity edema;EF of 55 to 60% with normal systolic function. Afebrile since admission. Leukocytosis present. Plan: On vancomycin and Zosyn; continue for now. Will obtain podiatry evaluation to assess any need for debridement. Also, follow recommendation around wound care. Wound care consulted; appreciate recs. ESR and CRP ordered. CK ordered. 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 CT abdomen and pelvis done; shows mild retroperitoneal, iliac and inguinal lymphadenopathy. Nonspecific. Follow-up CT recommended. Moderate fecal retention. bowel regimen with MiraLAX and milk of magnesia daily. -- resolved Plan Other conditions; 1) History of brain mass: Status post surgery. Following with neurosurgery in [place]. He is getting serial MRI scans. 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 The patient looks like he is having some mild dementia. CT head without contrast is unremarkable. vitamin B12 level and TSH= normal On aspirin 325 mg; decreased to 81 mg daily. 2) History of hypertension: Continue Lopressor. 3) Hyperlipidemia: Not on any medications. Medical history of 66 and LDL of 93; continue dietary measures. 4) History of gout: Currently seems to be not on any medications. Seems to be on indomethacin in the past. Uric acid within normal limits. Monitor for now. 5). Deep venous thrombosis prophylaxis: Placed on Lovenox. Admission and Anticipated Discharge Date Admission Date: August 16, 2022 Subjective ff up for BL lower extremity cellulitis, etc seen resting in bed, comfortable sitting up, having lunch states he feels fine overall lower ext discomfort mild no chest pain, dyspnea, palpitations, dizziness denies feeling depressed, or anxious no other symptoms Review of Systems Review of Systems: all noted and negative except for above Physical Exam Physical Exam: General- oriented x 3, not in distress, speaks in sentences with no effort or accessory muscle use Eyes- anicteric Neck- no JVD Lungs- clear breath sounds bilaterally, no wheezing, no crackles Heart- normal rate, regular rhythm; no murmurs Abdomen- normal bowel sounds, nondistended, soft, nontender Extremities- (+) tubi green meat packer in place BL mild bipedal edema and erythema improving (+) open wound in the creases of the L toe 1-3 and R toe 1-2 no bleeding discharge Neuro- alert, oriented x 3; no gross focal neurologic deficits Skin- warm & dry Results & Data Results & Data ([facility]) Vital Signs (Past 12 Hours) Vital Signs Temp Pulse Pulse Resp BP Pulse Ox O2 Del Method 08/19/22 11:38 36.9 C 61 20 123/64 97 Room Air 08/19/22 08:00 66 08/19/22 07:26 37.1 C 73 18 142/71 H 97 Room Air 08/19/22 04:00 36.8 C 76 20 148/63 H 97 Room Air all noted and reviewed including below
[2022-08-20] MEDS ORDERED: VANCOMYCIN HCL 1,500 MG in SODIUM CHLORIDE 0.9% 500 ML IV SCH (06:00)
[2022-08-20] MEDS: ENOXAPARIN INJ 40 MG/0.4 ML SYR SQ SCH (06:10)
[2022-08-20 06:19] LABS: Creatinine Clr Calc Pharmacy 49.8 ml/min; Est GFR (African American) 77.9 ml/min; Est GFR (Non-African American) 67.2 ml/min
[2022-08-20] MEDS: ASPIRIN 81 MG CHEW PO SCH (07:35)
[2022-08-20] MEDS: CETIRIZINE HCL 10 MG TABLET PO SCH (07:35)
[2022-08-20] MEDS: CHOLECALCIFEROL 1,000 UNITS 25 MCG TAB PO SCH (07:35)
[2022-08-20] MEDS: ADVANCED PROBIOTIC 1250 MG CAPSULE PO SCH (07:35)
[2022-08-20] MEDS: MAGNESIUM HYDROXIDE SUSP 30 ML UDC PO SCH (07:36)
[2022-08-20] MEDS: POLYETHYLENE (MIRALAX) 17 GM PACK PO SCH (07:36)
[2022-08-20] MEDS: METOPROLOL TARTRATE 50 MG TAB PO SCH ×2 (07:36→21:40)
[2022-08-20] MEDS ORDERED: diphenhydrAMINE Capsule 25 MG CAP PO PRN (11:37)
--- NOTE | 2022-08-20 15:41 | Hospitalist Progress Note ---
Date of Service August 20, 2022 Assessment & Plan (1) Bilateral lower leg cellulitis: (2) Bilateral leg ulcer: Plan: per Dr. Castillo's notes with addendum: Patient is a 77-year-old male was sent from his primary care office for bilateral lower extremity wounds. Wounds has been ongoing for last 1 year. Patient lives alone since his and has not seek any medical attention. He was brought to the hospital by his sister. X-ray in the ED shows possible osteomyelitis. MRI of both bilateral extremities were done. No osteomyelitis within bilateral tibia/fibula. Extensive subcutaneous fluid and skin thickening within both legs. Also small amount of edema/fluid within the musculature in bilateral extremities could be due to edema/nonspecific myositis. Echocardiogram was done for the lower extremity edema;EF of 55 to 60% with normal systolic function. Afebrile since admission. Leukocytosis present. Plan: On vancomycin and Zosyn; continue for now. Will obtain podiatry evaluation to assess any need for debridement. Also, follow recommendation around wound care. Wound care consulted; appreciate recs. ESR and CRP ordered. CK ordered. 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 CT abdomen and pelvis done; shows mild retroperitoneal, iliac and inguinal lymphadenopathy. Nonspecific. Follow-up CT recommended. Moderate fecal retention. bowel regimen with MiraLAX and milk of magnesia daily. -- resolved Plan Other conditions; 1) History of brain mass: Status post surgery. Following with neurosurgery in [place]. He is getting serial MRI scans. 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 The patient looks like he is having some mild dementia. CT head without contrast is unremarkable. vitamin B12 level and TSH= normal On aspirin 325 mg; decreased to 81 mg daily. 2) History of hypertension: Continue Lopressor. 3) Hyperlipidemia: Not on any medications. Medical history of 66 and LDL of 93; continue dietary measures. 4) History of gout: Currently seems to be not on any medications. Seems to be on indomethacin in the past. Uric acid within normal limits. Monitor for now. 5). Deep venous thrombosis prophylaxis: Placed on Lovenox. Admission and Anticipated Discharge Date Admission Date: August 16, 2022 Subjective Follow-up for lower extremity cellulitis, etc. Seen resting in bedside chair, comfortable, not in distress States he feels fine overall Less discomfort over bilateral lower legs No other symptoms Review of Systems Review of Systems: all noted and negative except for above Physical Exam Physical Exam: General- oriented x 3, not in distress, speaks in sentences with no effort or accessory muscle use Eyes- anicteric Neck- no JVD Lungs- clear BS bilaterally, no rales/wheezes Heart- normal rate, regular rhythm; no murmurs Abdomen- normal bowel sounds, nondistended, soft, no tenderness Extremities-bilateral lower extremity: Tubigrip in place, edema slightly improved compared to yesterday, erythema about the same as yesterday Right upper extremity-macular rash on the upper extremities extending to the forearm Neuro- alert, oriented x 3; no gross focal neurologic deficits Skin- warm & dry Results & Data Results & Data ([facility]) Vital Signs (Past 12 Hours) Vital Signs Temp Pulse Pulse Resp BP BP Pulse Ox 08/20/22 15:35 36.3 C L 79 20 143/91 H 99 08/20/22 11:33 36.2 C L 65 20 132/79 98 08/20/22 07:30 37.0 C 74 20 128/55 L 97 08/20/22 07:10 86 O2 Del Method 08/20/22 15:35 Room Air 08/20/22 11:33 Room Air 08/20/22 07:30 Room Air 08/20/22 07:10 all noted and reviewed including below
[2022-08-20] MEDS: DAPTOmycin 250 MG in SYRINGE 0 ML IV SCH (16:56)
[2022-08-20] MEDS: MELATONIN 3 MG TAB PO PRN (21:40)
[2022-08-20] MEDS: HYDROCORTISONE 2.5% CR 30 GM TUBE EXT PRN (21:40)
[2022-08-21] MEDS: ENOXAPARIN INJ 40 MG/0.4 ML SYR SQ SCH (05:28)
[2022-08-21] MEDS: HYDROCORTISONE 2.5% CR 30 GM TUBE EXT PRN (05:28)
[2022-08-21] MEDS: METOPROLOL TARTRATE 50 MG TAB PO SCH ×2 (07:56→22:25)
[2022-08-21] MEDS: ADVANCED PROBIOTIC 1250 MG CAPSULE PO SCH (07:56)
[2022-08-21] MEDS: MAGNESIUM HYDROXIDE SUSP 30 ML UDC PO SCH (07:57)
[2022-08-21] MEDS: CETIRIZINE HCL 10 MG TABLET PO SCH (07:57)
[2022-08-21] MEDS: ASPIRIN 81 MG CHEW PO SCH (07:58)
[2022-08-21] MEDS: CHOLECALCIFEROL 1,000 UNITS 25 MCG TAB PO SCH (07:58)
[2022-08-21] MEDS: POLYETHYLENE (MIRALAX) 17 GM PACK PO SCH (07:58)
[2022-08-21] MEDS: EUCERIN CR 120 GM JAR EXT SCH ×2 (11:42→22:25)
--- NOTE | 2022-08-21 14:14 | Hospitalist Progress Note ---
Date of Service August 21, 2022 Assessment & Plan (1) Bilateral lower leg cellulitis: (2) Bilateral leg ulcer: Plan: per Dr. Castillo's notes with addendum: Patient is a 77-year-old male was sent from his primary care office for bilateral lower extremity wounds. Wounds has been ongoing for last 1 year. Patient lives alone since his and has not seek any medical attention. He was brought to the hospital by his sister. X-ray in the ED shows possible osteomyelitis. MRI of both bilateral extremities were done. No osteomyelitis within bilateral tibia/fibula. Extensive subcutaneous fluid and skin thickening within both legs. Also small amount of edema/fluid within the musculature in bilateral extremities could be due to edema/nonspecific myositis. Echocardiogram was done for the lower extremity edema;EF of 55 to 60% with normal systolic function. Afebrile since admission. Leukocytosis present. Plan: On vancomycin and Zosyn; continue for now. Will obtain podiatry evaluation to assess any need for debridement. Also, follow recommendation around wound care. Wound care consulted; appreciate recs. ESR and CRP ordered. CK ordered. 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 CT abdomen and pelvis done; shows mild retroperitoneal, iliac and inguinal lymphadenopathy. Nonspecific. Follow-up CT recommended. Moderate fecal retention. bowel regimen with MiraLAX and milk of magnesia daily. -- resolved Plan Other conditions; 1) History of brain mass: Status post surgery. Following with neurosurgery in [place]. He is getting serial MRI scans. 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 The patient looks like he is having some mild dementia. CT head without contrast is unremarkable. vitamin B12 level and TSH= normal On aspirin 325 mg; decreased to 81 mg daily. 2) History of hypertension: Continue Lopressor. 3) Hyperlipidemia: Not on any medications. Medical history of 66 and LDL of 93; continue dietary measures. 4) History of gout: Currently seems to be not on any medications. Seems to be on indomethacin in the past. Uric acid within normal limits. Monitor for now. 5). Deep venous thrombosis prophylaxis: Placed on Lovenox. Disposition pending PT/OT evaluation Admission and Anticipated Discharge Date Admission Date: August 16, 2022 Subjective ff up for BL lower extremity cellulitis, wounds, etc seen resting in bed, comfortable no chest pain, dyspnea, palpitations, dizziness states he feels fine overall no leg pain no fever/chills no other symptoms Review of Systems Review of Systems: all noted and negative except for above Physical Exam Physical Exam: General- oriented x 3, not in distress, speaks in sentences with no effort or accessory muscle use Eyes- anicteric Neck- no JVD Lungs- clear BS BL Heart- normal rate, regular rhythm; no murmurs Abdomen- normal bowel sounds, nondistended, soft, nontender Extremities- grade 1 lower extremity edema, moderate erythema, very dry skin small open wounds healing well Neuro- alert, oriented x 3; no gross focal neurologic deficits Skin- warm & dry Results & Data Results & Data ([facility]) Vital Signs (Past 12 Hours) Vital Signs Temp Pulse Pulse Resp BP Pulse Ox O2 Del Method 08/21/22 11:08 36.8 C 61 20 135/68 98 Room Air 08/21/22 08:07 36.6 C 72 20 129/63 96 Room Air 08/21/22 07:19 81 08/21/22 03:47 36.8 C 69 16 132/69 97 Room Air all noted and reviewed including below
[2022-08-21] MEDS: DAPTOmycin 250 MG in SYRINGE 0 ML IV SCH (17:17)
[2022-08-22] MEDS: ENOXAPARIN INJ 40 MG/0.4 ML SYR SQ SCH (05:50)
[2022-08-22] MEDS: POLYETHYLENE (MIRALAX) 17 GM PACK PO SCH (08:29)
[2022-08-22] MEDS: ADVANCED PROBIOTIC 1250 MG CAPSULE PO SCH (08:29)
[2022-08-22] MEDS: CETIRIZINE HCL 10 MG TABLET PO SCH (08:30)
[2022-08-22] MEDS: CHOLECALCIFEROL 1,000 UNITS 25 MCG TAB PO SCH (08:31)
[2022-08-22] MEDS: ASPIRIN 81 MG CHEW PO SCH (08:31)
[2022-08-22] MEDS: METOPROLOL TARTRATE 50 MG TAB PO SCH ×2 (08:31→21:39)
[2022-08-22] MEDS: MAGNESIUM HYDROXIDE SUSP 30 ML UDC PO SCH (08:32)
[2022-08-22] MEDS: EUCERIN CR 120 GM JAR EXT SCH ×2 (08:32→21:39)
--- NOTE | 2022-08-22 15:25 | Hospitalist Progress Note ---
Date of Service August 22, 2022 Assessment & Plan (1) Bilateral lower leg cellulitis: (2) Bilateral leg ulcer: Plan: per Dr. Castillo's notes with addendum: Patient is a 77-year-old male was sent from his primary care office for bilateral lower extremity wounds. Wounds has been ongoing for last 1 year. Patient lives alone since his and has not seek any medical attention. He was brought to the hospital by his sister. X-ray in the ED shows possible osteomyelitis. MRI of both bilateral extremities were done. No osteomyelitis within bilateral tibia/fibula. Extensive subcutaneous fluid and skin thickening within both legs. Also small amount of edema/fluid within the musculature in bilateral extremities could be due to edema/nonspecific myositis. Echocardiogram was done for the lower extremity edema;EF of 55 to 60% with normal systolic function. Afebrile since admission. Leukocytosis present. Plan: On vancomycin and Zosyn; continue for now. Will obtain podiatry evaluation to assess any need for debridement. Also, follow recommendation around wound care. Wound care consulted; appreciate recs. ESR and CRP ordered. CK ordered. 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 CT abdomen and pelvis done; shows mild retroperitoneal, iliac and inguinal lymph adenopathy. Nonspecific. Follow-up CT recommended. Moderate fecal retention. bowel regimen with MiraLAX and milk of magnesia daily. -- resolved Plan Other conditions; 1) History of brain mass: Status post surgery. Following with neurosurgery in [place]. He is getting serial MRI scans. 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 The patient looks like he is having some mild dementia. CT head without contrast is unremarkable. vitamin B12 level and TSH= normal On aspirin 325 mg; decreased to 81 mg daily. 2) History of hypertension: Continue Lopressor. 3) Hyperlipidemia: Not on any medications. Medical history of 66 and LDL of 93; continue dietary measures. 4) History of gout: Currently seems to be not on any medications. Seems to be on indomethacin in the past. Uric acid within normal limits. Monitor for now. 5). Deep venous thrombosis prophylaxis: Placed on Lovenox. Disposition PT/OT: transition to acute rehabilatation Admission and Anticipated Discharge Date Admission Date: August 16, 2022 Subjective Follow-up for lower extremity cellulitis, wound infection, etc. Seen resting bed, sitting up, in good spirits Family at the bedside visiting-Sister Camille and [id number] Srikanth States he feels fine overall Was able to perform physical therapy in his room today, had some lower extremity weakness but improving No other symptoms Review of Systems Review of Systems: all noted and negative except for above Physical Exam Physical Exam: General- oriented x 3, not in distress, speaks in sentences with no effort or accessory muscle use Eyes- anicteric Neck- no JVD Lungs- clear BS BL Heart- normal rate, regular rhythm; no murmurs Abdomen- normal bowel sounds, nondistended, soft, nontender Extremities- Lower extremity grade 1 edema, mild erythema, dressing in place Neuro- alert, oriented x 3; no gross focal neurologic deficits Skin- warm & dry Results & Data Results & Data ([facility]) Vital Signs (Past 12 Hours) Vital Signs Temp Pulse Pulse Resp BP Pulse Ox O2 Del Method 08/22/22 14:53 36.4 C L 70 18 108/53 L 98 Room Air 08/22/22 10:59 37.0 C 66 18 127/64 94 Room Air 08/22/22 07:41 36.7 C 60 18 142/69 H 94 Room Air 08/22/22 07:20 60 all noted and reviewed including below
[2022-08-22] MEDS: DAPTOmycin 250 MG in SYRINGE 0 ML IV SCH (17:23)
[2022-08-22] MEDS: MELATONIN 3 MG TAB PO PRN (21:40)
[2022-08-23] MEDS: ENOXAPARIN INJ 40 MG/0.4 ML SYR SQ SCH (04:51)
[2022-08-23] MEDS: CHOLECALCIFEROL 1,000 UNITS 25 MCG TAB PO SCH (07:51)
[2022-08-23] MEDS: METOPROLOL TARTRATE 50 MG TAB PO SCH ×2 (07:51→20:23)
[2022-08-23] MEDS: CETIRIZINE HCL 10 MG TABLET PO SCH (07:51)
[2022-08-23] MEDS: MAGNESIUM HYDROXIDE SUSP 30 ML UDC PO SCH (07:51)
[2022-08-23] MEDS: EUCERIN CR 120 GM JAR EXT SCH ×2 (07:51→20:23)
[2022-08-23] MEDS: ASPIRIN 81 MG CHEW PO SCH (07:51)
[2022-08-23] MEDS: ADVANCED PROBIOTIC 1250 MG CAPSULE PO SCH (07:52)
[2022-08-23] MEDS: POLYETHYLENE (MIRALAX) 17 GM PACK PO SCH (07:52)
--- NOTE | 2022-08-23 15:36 | Hospitalist Progress Note ---
Date of Service August 23, 2022 Assessment & Plan (1) Bilateral lower leg cellulitis: (2) Bilateral leg ulcer: Plan: per Dr. Castillo's notes with addendum: Patient is a 77-year-old male was sent from his primary care office for bilateral lower extremity wounds. Wounds has been ongoing for last 1 year. Patient lives alone since his and has not seek any medical attention. He was brought to the hospital by his sister. X-ray in the ED shows possible osteomyelitis. MRI of both bilateral extremities were done. No osteomyelitis within bilateral tibia/fibula. Extensive subcutaneous fluid and skin thickening within both legs. Also small amount of edema/fluid within the musculature in bilateral extremities could be due to edema/nonspecific myositis. Echocardiogram was done for the lower extremity edema;EF of 55 to 60% with normal systolic function. Afebrile since admission. Leukocytosis present. 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 CT abdomen and pelvis done; shows mild retroperitoneal, iliac and inguinal lymphadenopathy. Nonspecific. Follow-up CT recommended. Moderate fecal retention. bowel regimen with MiraLAX and milk of magnesia daily. -- resolved Plan Other conditions; 1) History of brain mass: Status post surgery. Following with neurosurgery in [place]. He is getting serial MRI scans. 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 The patient looks like he is having some mild dementia. CT head without contrast is unremarkable. vitamin B12 level and TSH= normal On aspirin 325 mg; decreased to 81 mg daily. 2) History of hypertension: Continue Lopressor. 3) Hyperlipidemia: Not on any medications. Medical history of 66 and LDL of 93; continue dietary measures. 4) History of gout: Currently seems to be not on any medications. Seems to be on indomethacin in the past. Uric acid within normal limits. Monitor for now. 5). Deep venous thrombosis prophylaxis: Placed on Lovenox. Disposition PT/OT: transition to acute rehabilitation in 1-2 days Admission and Anticipated Discharge Date Admission Date: August 16, 2022 Subjective ff up for bilateral lower extremity cellulitis, etc. Seen sitting up in bedside chair comfortable, in good spirits, just had physical therapy States he feels fine overall Denies dizziness, shortness of breath, chest pain, palpitations Denies leg pain, leg weakness seems to be improving Balance still not great no other symptoms Review of Systems Review of Systems: all noted and negative except for above Physical Exam Physical Exam: General- oriented x 3, not in distress, speaks in sentences with no effort or accessory muscle use Eyes- anicteric Neck- no JVD Lungs- clear BS bilaterally, no rales/wheezes Heart- normal rate, regular rhythm; no murmurs Abdomen- normal bowel sounds, nondistended, soft, nontender Extremities- mild lower extremity edema, mild erythema--> improving, no calf t enderness Neuro- alert, oriented x 3; no gross focal neurologic deficits Skin- warm & dry Results & Data Results & Data ([facility]) Vital Signs (Past 12 Hours) Vital Signs Temp Pulse Pulse Resp BP BP Pulse Ox 08/23/22 14:43 83 08/23/22 11:16 36.7 C 72 20 107/69 97 08/23/22 09:00 08/23/22 07:53 36.8 C 70 19 143/68 H 98 08/23/22 07:08 55 L 08/23/22 03:37 36.4 C L 58 L 18 146/75 H 98 O2 Del Method 08/23/22 14:43 08/23/22 11:16 Room Air 08/23/22 09:00 Room Air 08/23/22 07:53 Room Air 08/23/22 07:08 08/23/22 03:37 Room Air all noted and reviewed including below
[2022-08-23] MEDS: DAPTOmycin 250 MG in SYRINGE 0 ML IV SCH (17:30)
[2022-08-24] MEDS: ENOXAPARIN INJ 40 MG/0.4 ML SYR SQ SCH (05:59)
[2022-08-24] MEDS: CHOLECALCIFEROL 1,000 UNITS 25 MCG TAB PO SCH (09:02)
[2022-08-24] MEDS: METOPROLOL TARTRATE 50 MG TAB PO SCH ×2 (09:02→23:06)
[2022-08-24] MEDS: ADVANCED PROBIOTIC 1250 MG CAPSULE PO SCH (09:03)
[2022-08-24] MEDS: CETIRIZINE HCL 10 MG TABLET PO SCH (09:03)
[2022-08-24] MEDS: ASPIRIN 81 MG CHEW PO SCH (09:03)
[2022-08-24] MEDS: MAGNESIUM HYDROXIDE SUSP 30 ML UDC PO SCH (09:04)
[2022-08-24] MEDS: EUCERIN CR 120 GM JAR EXT SCH ×2 (09:04→23:08)
[2022-08-24] MEDS: POLYETHYLENE (MIRALAX) 17 GM PACK PO SCH (09:06)
--- NOTE | 2022-08-24 16:25 | Hospitalist Progress Note ---
Date of Service August 24, 2022 Assessment & Plan (1) Bilateral lower leg cellulitis: (2) Bilateral leg ulcer: Plan: Patient is a 77-year-old male was sent from his primary care office for bilateral lower extremity wounds. Wounds has been ongoing for last 1 year. Patient lives alone since his and has not seek any medical attention. He was brought to the hospital by his sister. X-ray in the ED shows possible osteomyelitis. MRI of both bilateral extremities were done.::No osteomyelitis within bilateral tibia/fibula. Extensive subcutaneous fluid and skin thickening within both legs. Also small amount of edema/fluid within the musculature in bilateral extremities could be due to edema/nonspecific myositis. Please see the picture of the legs for better understanding of the leg wounds and cellulitis Afebrile since admission. Leukocytosis present. 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 Will try very small dose of Lasix to decrease edema of the legs Monitor PRP Noted to have reaction to vancomycin Given Zyrtec, Hydrocortisone cream, as needed Benadryl for upper extremity the rash, possible drug reaction question--> resolved Zyrtec x 1 week, then taper (3) Abdominal discomfort: (4) Constipation: Plan: Also reported abdominal discomfort on admission. CT abdomen and pelvis done; shows mild retroperitoneal, iliac and inguinal lymphadenopathy. Nonspecific. Follow-up CT recommended. Moderate fecal retention. bowel regimen with MiraLAX and milk of magnesia daily. -- resolved Plan Other chronic medical conditions; 1) History of brain mass: Status post surgery. Following with neurosurgery in [place]. He is getting serial MRI scans. 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 The patient looks like he is having some mild dementia. CT head without contrast is unremarkable. vitamin B12 level and TSH= normal On aspirin 325 mg; decreased to 81 mg daily. 2) History of hypertension: Continue Lopressor. 3) Hyperlipidemia: Not on any medications. Medical history of 66 and LDL of 93; continue dietary measures. 4) History of gout: Currently seems to be not on any medications. Seems to be on indomethacin in the past. Uric acid within normal limits. Monitor for now. 5). Deep venous thrombosis prophylaxis: Placed on Lovenox. Disposition PT/OT: transition to acute rehabilitation in 1-2 days Discussed with the family members Admission and Anticipated Discharge Date Admission Date: August 16, 2022 Subjective 08/24/2022 The patient was seen and examined in medical telemetry unit He has pain stable and remains generally weak and lethargic Leg wounds have been improving and the swelling is better too Denies any fever and or chills Review of Systems Review of Systems: All systems reviewed and are unremarkable except as noted below Musculoskeletal: Bilateral leg wounds with cellulitis Neurologic: Generally weak and lethargic Physical Exam Physical Exam: Sitting on a chair without any acute distress Constitutional: well developed, well nourished, + ill appearing and + obese Eyes: PERRL, conjunctivae normal, anicteric sclerae ENMT: external ear and nose normal, oropharynx normal Neck: trachea midline, no thyromegaly Respiratory: no respiratory distress Auscultation: + diminished lung sounds and + crackles (Minimal bibasilar crackles) Cardiovascular: Rate/Rhythm: regular rate and regular rhythm; not tachycardic Heart Sounds: normal S1 and normal S2; no murmur Extremities: + edema (1+ edema bilaterally) Gastrointestinal (Abdomen): Inspection/Auscultation: normal bowel sounds; abdomen not distended Percussion/Palpation: abdomen soft; abdomen nontender Musculoskeletal: No acute arthritis involving any joint Skin: Bilateral leg wounds as shown in the picture Neurologic: normal touch/pain/proprioception and moves all extremities; no focal motor deficits Psychiatric: A+Ox3, euthymic affect Lymphatic: no cervical or axillary lymphadenopathy Results & Data Results & Data ([facility]) Vital Signs (Past 12 Hours) Vital Signs Temp Pulse Pulse Resp BP Pulse Ox O2 Del Method 08/24/22 15:29 36.6 C 63 16 115/67 98 Room Air 08/24/22 11:13 36.4 C L 60 16 107/63 96 Room Air 08/24/22 11:13 36.5 C 60 20 107/63 96 Room Air 08/24/22 07:26 54 L 08/24/22 06:03 36.4 C L 60 18 159/73 H 98 Room Air Medications Administered Current Inpatient Medications Acetaminophen (Acetaminophen 325 Mg Tab) 650 mg PO Q4H PRN PRN Reason: Pain or Fever Stop: 09/16/22 00:39 Last Admin: 08/22/22 05:49 Dose: 650 mg Aspirin (Aspirin 81 Mg Chew) 81 mg PO DAILY TORIE Stop: 09/17/22 08:59 Last Admin: 08/24/22 09:03 Dose: 81 mg Cetirizine HCl (Cetirizine Hcl 10 Mg Tablet) 10 mg PO QAM [facility] Stop: 09/18/22 08:59 Last Admin: 08/24/22 09:03 Dose: 10 mg Diphenhydramine HCl (Diphenhydramine Capsule 25 Mg Cap) 25 mg PO Q6H PRN PRN Reason: Itching Stop: 09/19/22 11:36 Enoxaparin Sodium (Enoxaparin Inj 40 Mg/0.4 Ml Syr) 40 mg SQ Q24H TORIE Stop: 09/16/22 05:59 Last Admin: 08/24/22 05:59 Dose: 40 mg Hydrocortisone (Hydrocortisone 2.5% Cr 30 Gm Tube) 1 appln EXT Q6H PRN PRN Reason: Itching Stop: 09/19/22 11:42 Last Admin: 08/21/22 05:28 Dose: 1 appln Daptomycin 250 mg/ Syringe 5 mls @ 2.5 mls/min IV Q24H [facility]; Protocol Stop: 08/27/22 17:59 Last Admin: 08/23/22 17:30 Dose: 2.5 mls/min Lactobacillus Acidophilus (Advanced Probiotic 1250 Mg Capsule) 2 cap PO DAILY TORIE Stop: 09/18/22 08:59 Last Admin: 08/24/22 09:03 Dose: 2 cap Magnesium Hydroxide (Magnesium Hydroxide Susp 30 Ml Udc) 30 ml PO DAILY TORIE Stop: 09/16/22 13:14 Last Admin: 08/24/22 09:04 Dose: 30 ml Melatonin (Melatonin 3 Mg Tab) 3 mg PO HS PRN PRN Reason: Sleep Stop: 09/19/22 19:59 Last Admin: 08/22/22 21:40 Dose: 3 mg Metoprolol Tartrate (Metoprolol Tartrate 50 Mg Tab) 50 mg PO BID TORIE Stop: 09/16/22 08:59 Last Admin: 08/24/22 09:02 Dose: 50 mg Miscellaneous (Order Awaiting Action: Cyclosporine [Restasis] 0.05 % Dropperette) 1 each N/A QS [facility] Stop: 09/16/22 07:59 Last Admin: 08/24/22 07:32 Dose: Not Given Multi-Ingredient Cream (Eucerin Cr 120 Gm Jar) 1 appln EXT BID [facility] Stop: 09/20/22 10:44 Last Admin: 08/24/22 09:04 Dose: 1 appln Nitroglycerin (Nitroglycerin Sl 0.4 Mg/Tab Tab) 0.4 mg SL Q5M PRN PRN Reason: Chest Pain Stop: 09/16/22 00:39 Polyethylene Glycol (Polyethylene (Miralax) 17 Gm Pack) 17 gm PO DAILY PRN PRN Reason: Constipation Stop: 09/16/22 00:39 Polyethylene Glycol (Polyethylene (Miralax) 17 Gm Pack) 17 gm PO DAILY TORIE Stop: 09/16/22 12:59 Last Admin: 08/24/22 09:06 Dose: 17 gm Vitamin D (Cholecalciferol 1,000 Units 25 Mcg Tab) 1,000 units PO DAILY TORIE Stop: 09/16/22 08:59 Last Admin: 08/24/22 09:02 Dose: 1,000 units
[2022-08-24] MEDS ORDERED: FUROSEMIDE INJ 20 MG/2 ML VIAL IV ONE (16:26)
[2022-08-24] MEDS: DAPTOmycin 250 MG in SYRINGE 0 ML IV SCH (17:08)
[2022-08-25] MEDS: ENOXAPARIN INJ 40 MG/0.4 ML SYR SQ SCH ×2 (06:08→08:56)
[2022-08-25 06:51] LABS: Basophils # (auto) 0.05 K/uL (0-0.2); Basophils % (auto) 0.5 %; Eosinophils # (auto) 0.64 K/uL (0-0.50); Eosinophils % (auto) 6.3 %; Immature Granulocytes # (auto) 0.13 K/uL (0.01-0.20); Immature Granulocytes % (auto) 1.3 %; Lymphocytes # (auto) 1.84 K/uL (1.2-3.4); Lymphocytes % (auto) 18.2 %; Mean Corpuscular Hemoglobin 28.9 pg (25.0-34.0); Mean Corpuscular Hgb Conc 33.3 g/dL (32.0-36.0); Mean Corpuscular Volume 86.7 fL (80.0-100.0); Mean Platelet Volume 8.8 fL (9.4-12.4); Monocytes % (auto) 8.9 %; Neutrophils # (auto) 6.55 K/uL (1.40-6.50); Neutrophils % (auto) 64.8 %; Platelet Count 343 K/uL (130-400); RDW Coefficient of Variation 12.8 % (11.5-14.5); RDW Standard Deviation 40.2 fL (36.4-46.3); Red Blood Count 4.15 M/uL (4.70-6.10); White Blood Count 10.11 K/ul (4.8-10.8)
[2022-08-25 08:19] LABS: BUN Creatinine Ratio 22.1 (10-20); Calcium 8.9 mg/dl (8.5-10.1); Creatinine Clr Calc Pharmacy 54.4 ml/min; Est GFR (African American) 87.9 ml/min; Est GFR (Non-African American) 75.8 ml/min; Magnesium 2.4 mg/dl (1.7-2.4)
[2022-08-25] MEDS: METOPROLOL TARTRATE 50 MG TAB PO SCH ×2 (08:55→21:16)
[2022-08-25] MEDS: MAGNESIUM HYDROXIDE SUSP 30 ML UDC PO SCH (08:56)
[2022-08-25] MEDS: ADVANCED PROBIOTIC 1250 MG CAPSULE PO SCH (08:56)
[2022-08-25] MEDS: POLYETHYLENE (MIRALAX) 17 GM PACK PO SCH (08:56)
[2022-08-25] MEDS: EUCERIN CR 120 GM JAR EXT SCH ×2 (08:57→21:18)
[2022-08-25] MEDS: CHOLECALCIFEROL 1,000 UNITS 25 MCG TAB PO SCH (08:58)
[2022-08-25] MEDS: CETIRIZINE HCL 10 MG TABLET PO SCH (08:59)
[2022-08-25] MEDS: ASPIRIN 81 MG CHEW PO SCH (08:59)
--- NOTE | 2022-08-25 15:03 | Hospitalist Progress Note ---
Date of Service August 25, 2022 Assessment & Plan (1) Bilateral lower leg cellulitis: (2) Bilateral leg ulcer: Plan: Patient is a 77-year-old male was sent from his primary care office for bilateral lower extremity wounds. Wounds has been ongoing for last 1 year. Patient lives alone since his and has not seek any medical attention. He was brought to the hospital by his sister. X-ray in the ED shows possible osteomyelitis. MRI of both bilateral extremities were done.::No osteomyelitis within bilateral tibia/fibula. Extensive subcutaneous fluid and skin thickening within both legs. Also small amount of edema/fluid within the musculature in bilateral extremities could be due to edema/nonspecific myositis. Please see the picture of the legs for better understanding of the leg wounds and cellulitis Afebrile since admission. Leukocytosis present. 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 Will try very small dose of Lasix to decrease edema of the legs Monitor PRP Noted to have reaction to vancomycin Given Zyrtec, Hydrocortisone cream, as needed Benadryl for upper extremity the rash, possible drug reaction question--> resolved Zyrtec x 1 week, then taper (3) Abdominal discomfort: (4) Constipation: Plan: Also reported abdominal discomfort on admission. CT abdomen and pelvis done; shows mild retroperitoneal, iliac and inguinal lymphadenopathy. Nonspecific. Follow-up CT recommended. Moderate fecal retention. bowel regimen with MiraLAX and milk of magnesia daily. -- resolved Plan Other chronic medical conditions; 1) History of brain mass: Status post surgery. Following with neurosurgery in [place]. He is getting serial MRI scans. 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 The patient looks like he is having some mild dementia. CT head without contrast is unremarkable. vitamin B12 level and TSH= normal On aspirin 325 mg; decreased to 81 mg daily. 2) History of hypertension: Continue Lopressor. 3) Hyperlipidemia: Not on any medications. Medical history of 66 and LDL of 93; continue dietary measures. 4) History of gout: Currently seems to be not on any medications. Seems to be on indomethacin in the past. Uric acid within normal limits. Monitor for now. 5). Deep venous thrombosis prophylaxis: Placed on Lovenox. Disposition PT/OT: transition to acute rehabilitation in 1-2 days Discussed with the family members Admission and Anticipated Discharge Date Admission Date: August 16, 2022 Subjective 08/24/2022 The patient was seen and examined in medical telemetry unit He has pain stable and remains generally weak and lethargic Leg wounds have been improving and the swelling is better too Denies any fever and or chills 08/25/2022 The patient was seen and examined in medical telemetry unit He has been feeling much better Denies any significant symptoms No fever and or chills and no pain in the legs Review of Systems Review of Systems: All systems reviewed and are unremarkable except as noted below Musculoskeletal: Bilateral leg wounds with cellulitis Neurologic: Generally weak and lethargic Physical Exam Physical Exam: Sitting on a chair without any acute distress Constitutional: well developed, well nourished, + ill appearing and + obese Eyes: PERRL, conjunctivae normal, anicteric sclerae ENMT: external ear and nose normal, oropharynx normal Neck: trachea midline, no thyromegaly Respiratory: no respiratory distress Auscultation: + diminished lung sounds and + crackles (Minimal bibasilar crackles) Cardiovascular: Rate/Rhythm: regular rate and regular rhythm; not tachycardic Heart Sounds: normal S1 and normal S2; no murmur Extremities: + edema (1+ edema bilaterally) Gastrointestinal (Abdomen): Inspection/Auscultation: normal bowel sounds; abdomen not distended Percussion/Palpation: abdomen soft; abdomen nontender Musculoskeletal: No acute arthritis involving any joint Neurologic: normal touch/pain/proprioception and moves all extremities; no focal motor deficits Psychiatric: A+Ox3, euthymic affect Lymphatic: no cervical or axillary lymphadenopathy Results & Data Results & Data ([facility]) Vital Signs (Past 12 Hours) Vital Signs Temp Pulse Pulse Resp BP BP Pulse Ox 08/25/22 11:28 36.6 C 56 L 16 126/66 98 08/25/22 07:45 37 C 75 18 125/68 97 08/25/22 07:24 69 08/25/22 04:56 37.1 C 61 18 132/62 96 O2 Del Method 08/25/22 11:28 Room Air 08/25/22 07:45 Room Air 08/25/22 07:24 08/25/22 04:56 Room Air Laboratory Results Short CBC 08/25/22 Range/Units 06:05 WBC 10.11 (4.8-10.8) K/ul Hgb 12.0 L (14.0-18.0) g/dl Hct 36.0 L (42.0-52.0) % Plt Count 343 (130-400) K/uL BMP 08/25/22 06:05 Sodium 138 Potassium 4.0 Chloride 106 Carbon Dioxide 28 BUN 21 Creatinine 0.95 Glucose 78 Calcium 8.9 Medications Administered Current Inpatient Medications Acetaminophen (Acetaminophen 325 Mg Tab) 650 mg PO Q4H PRN PRN Reason: Pain or Fever Stop: 09/16/22 00:39 Last Admin: 08/22/22 05:49 Dose: 650 mg Aspirin (Aspirin 81 Mg Chew) 81 mg PO DAILY TORIE Stop: 09/17/22 08:59 Last Admin: 08/25/22 08:59 Dose: 81 mg Cetirizine HCl (Cetirizine Hcl 10 Mg Tablet) 10 mg PO QAM [facility] Stop: 09/18/22 08:59 Last Admin: 08/25/22 08:59 Dose: 10 mg Diphenhydramine HCl (Diphenhydramine Capsule 25 Mg Cap) 25 mg PO Q6H PRN PRN Reason: Itching Stop: 09/19/22 11:36 Enoxaparin Sodium (Enoxaparin Inj 40 Mg/0.4 Ml Syr) 40 mg SQ Q24H TORIE Stop: 09/16/22 05:59 Last Admin: 08/25/22 08:56 Dose: 40 mg Hydrocortisone (Hydrocortisone 2.5% Cr 30 Gm Tube) 1 appln EXT Q6H PRN PRN Reason: Itching Stop: 09/19/22 11:42 Last Admin: 08/21/22 05:28 Dose: 1 appln Daptomycin 250 mg/ Syringe 5 mls @ 2.5 mls/min IV Q24H [facility]ORIE; Protocol Stop: 08/27/22 17:59 Last Admin: 08/24/22 17:08 Dose: 2.5 mls/min Lactobacillus Acidophilus (Advanced Probiotic 1250 Mg Capsule) 2 cap PO DAILY TORIE Stop: 09/18/22 08:59 Last Admin: 08/25/22 08:56 Dose: 2 cap Magnesium Hydroxide (Magnesium Hydroxide Susp 30 Ml Udc) 30 ml PO DAILY TORIE Stop: 09/16/22 13:14 Last Admin: 08/25/22 08:56 Dose: 30 ml Melatonin (Melatonin 3 Mg Tab) 3 mg PO HS PRN PRN Reason: Sleep Stop: 09/19/22 19:59 Last Admin: 08/22/22 21:40 Dose: 3 mg Metoprolol Tartrate (Metoprolol Tartrate 50 Mg Tab) 50 mg PO BID [facility] Stop: 09/16/22 08:59 Last Admin: 08/25/22 08:55 Dose: 50 mg Miscellaneous (Order Awaiting Action: Cyclosporine [Restasis] 0.05 % Dropperette) 1 each N/A QS [facility] Stop: 09/16/22 07:59 Last Admin: 08/25/22 08:54 Dose: Not Given Multi-Ingredient Cream (Eucerin Cr 120 Gm Jar) 1 appln EXT BID [facility] Stop: 09/20/22 10:44 Last Admin: 08/25/22 08:57 Dose: 1 appln Nitroglycerin (Nitroglycerin Sl 0.4 Mg/Tab Tab) 0.4 mg SL Q5M PRN PRN Reason: Chest Pain Stop: 09/16/22 00:39 Polyethylene Glycol (Polyethylene (Miralax) 17 Gm Pack) 17 gm PO DAILY PRN PRN Reason: Constipation Stop: 09/16/22 00:39 Polyethylene Glycol (Polyethylene (Miralax) 17 Gm Pack) 17 gm PO DAILY TORIE Stop: 09/16/22 12:59 Last Admin: 08/25/22 08:56 Dose: 17 gm Vitamin D (Cholecalciferol 1,000 Units 25 Mcg Tab) 1,000 units PO DAILY TORIE Stop: 09/16/22 08:59 Last Admin: 08/25/22 08:58 Dose: 1,000 units
[2022-08-25] MEDS: DAPTOmycin 250 MG in SYRINGE 0 ML IV SCH (18:36)
[2022-08-26 06:35] LABS: BUN Creatinine Ratio 26.7 (10-20); Calcium 9.1 mg/dl (8.5-10.1); Creatinine Clr Calc Pharmacy 44.5 ml/min; Est GFR (Non-African American) 59.6 ml/min
[2022-08-26] MEDS: HYDROCORTISONE 2.5% CR 30 GM TUBE EXT PRN (07:46)
[2022-08-26] MEDS: ADVANCED PROBIOTIC 1250 MG CAPSULE PO SCH (07:47)
[2022-08-26] MEDS: METOPROLOL TARTRATE 50 MG TAB PO SCH ×2 (07:47→20:31)
[2022-08-26] MEDS: CETIRIZINE HCL 10 MG TABLET PO SCH (07:48)
[2022-08-26] MEDS: CHOLECALCIFEROL 1,000 UNITS 25 MCG TAB PO SCH (07:48)
[2022-08-26] MEDS: POLYETHYLENE (MIRALAX) 17 GM PACK PO SCH (07:48)
[2022-08-26] MEDS: ASPIRIN 81 MG CHEW PO SCH (07:48)
[2022-08-26] MEDS: MAGNESIUM HYDROXIDE SUSP 30 ML UDC PO SCH (07:48)
[2022-08-26] MEDS: EUCERIN CR 120 GM JAR EXT SCH ×2 (07:49→20:33)
--- NOTE | 2022-08-26 15:22 | Hospitalist Progress Note ---
Date of Service August 26, 2022 Assessment & Plan (1) Bilateral lower leg cellulitis: (2) Bilateral leg ulcer: Plan: Patient is a 77-year-old male was sent from his primary care office for bilateral lower extremity wounds. Wounds has been ongoing for last 1 year. Patient lives alone since his and has not seek any medical attention. He was brought to the hospital by his sister. X-ray in the ED shows possible osteomyelitis. MRI of both bilateral extremities were done.::No osteomyelitis within bilateral tibia/fibula. Extensive subcutaneous fluid and skin thickening within both legs. Also small amount of edema/fluid within the musculature in bilateral extremities could be due to edema/nonspecific myositis. Please see the picture of the legs for better understanding of the leg wounds and cellulitis Afebrile since admission. Leukocytosis present. 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 Will try very small dose of Lasix to decrease edema of the legs Monitor PRP-remains stable Noted to have reaction to vancomycin Given Zyrtec, Hydrocortisone cream, as needed Benadryl for upper extremity the rash, possible drug reaction question--> resolved Zyrtec x 1 week, then taper (3) Abdominal discomfort: (4) Constipation: Plan: Also reported abdominal discomfort on admission. CT abdomen and pelvis done; shows mild retroperitoneal, iliac and inguinal lymphadenopathy. Nonspecific. Follow-up CT recommended. Moderate fecal retention. bowel regimen with MiraLAX and milk of magnesia daily. -- resolved Plan Other chronic medical conditions; 1) History of brain mass: Status post surgery. Following with neurosurgery in [place]. He is getting serial MRI scans. 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 The patient looks like he is having some mild dementia. CT head without contrast is unremarkable. vitamin B12 level and TSH= normal On aspirin 325 mg; decreased to 81 mg daily. 2) History of hypertension: Continue Lopressor. 3) Hyperlipidemia: Not on any medications. Medical history of 66 and LDL of 93; continue dietary measures. 4) History of gout: Currently seems to be not on any medications. Seems to be on indomethacin in the past. Uric acid within normal limits. Monitor for now. 5). Deep venous thrombosis prophylaxis: Placed on Lovenox. Disposition PT/OT: transition to acute rehabilitation in 1-2 days Discussed with the family members Admission and Anticipated Discharge Date Admission Date: August 16, 2022 Subjective 08/24/2022 The patient was seen and examined in medical telemetry unit He has pain stable and remains generally weak and lethargic Leg wounds have been improving and the swelling is better too Denies any fever and or chills 08/25/2022 The patient was seen and examined in medical telemetry unit He has been feeling much better Denies any significant symptoms No fever and or chills and no pain in the legs 08/26/2021 The patient was seen and examined in medical telemetry unit He has been feeling much better Accepted to [facility] on Monday Review of Systems Review of Systems: All systems reviewed and are unremarkable except as noted below Musculoskeletal: Bilateral leg wounds with cellulitis Neurologic: Generally weak and lethargic Physical Exam Physical Exam: Sitting on a chair without any acute distress Constitutional: well developed, well nourished, + ill appearing and + obese Eyes: PERRL, conjunctivae normal, anicteric sclerae ENMT: external ear and nose normal, oropharynx normal Neck: trachea midline, no thyromegaly Respiratory: no respiratory distress Auscultation: + diminished lung sounds and + crackles (Minimal bibasilar crackles) Cardiovascular: Rate/Rhythm: regular rate and regular rhythm; not tachycardic Heart Sounds: normal S1 and normal S2; no murmur Extremities: + edema (1+ edema bilaterally) Gastrointestinal (Abdomen): Inspection/Auscultation: normal bowel sounds; abdomen not distended Percussion/Palpation: abdomen soft; abdomen nontender Musculoskeletal: No acute arthritis involving any joint Neurologic: normal touch/pain/proprioception and moves all extremities; no focal motor deficits Psychiatric: A+Ox3, euthymic affect Lymphatic: no cervical or axillary lymphadenopathy Results & Data Results & Data ([facility]) Vital Signs (Past 12 Hours) Vital Signs Temp Pulse Pulse Resp BP Pulse Ox O2 Del Method 08/26/22 11:22 36.7 C 57 L 19 131/71 97 Room Air 08/26/22 08:27 36.5 C 60 19 146/79 H 99 Room Air 08/26/22 07:13 56 L Laboratory Results [facility] 08/26/22 05:46 Sodium 136 Potassium 4.0 Chloride 104 Carbon Dioxide 27 BUN 31 H Creatinine 1.16 Glucose 82 Calcium 9.1 Medications Administered Current Inpatient Medications Acetaminophen (Acetaminophen 325 Mg Tab) 650 mg PO Q4H PRN PRN Reason: Pain or Fever Stop: 09/16/22 00:39 Last Admin: 08/22/22 05:49 Dose: 650 mg Aspirin (Aspirin 81 Mg Chew) 81 mg PO DAILY [facility] Stop: 09/17/22 08:59 Last Admin: 08/26/22 07:48 Dose: 81 mg Cetirizine HCl (Cetirizine Hcl 10 Mg Tablet) 10 mg PO QAM [facility] Stop: 09/18/22 08:59 Last Admin: 08/26/22 07:48 Dose: 10 mg Diphenhydramine HCl (Diphenhydramine Capsule 25 Mg Cap) 25 mg PO Q6H PRN PRN Reason: Itching Stop: 09/19/22 11:36 Enoxaparin Sodium (Enoxaparin Inj 40 Mg/0.4 Ml Syr) 40 mg SQ Q24H [facility] Stop: 09/16/22 05:59 Last Admin: 08/25/22 08:56 Dose: 40 mg Hydrocortisone (Hydrocortisone 2.5% Cr 30 Gm Tube) 1 appln EXT Q6H PRN PRN Reason: Itching Stop: 09/19/22 11:42 Last Admin: 08/26/22 07:46 Dose: 1 appln Daptomycin 250 mg/ Syringe 5 mls @ 2.5 mls/min IV Q24H [facility]; Protocol Stop: 08/27/22 17:59 Last Admin: 08/25/22 18:36 Dose: 2.5 mls/min Lactobacillus Acidophilus (Advanced Probiotic 1250 Mg Capsule) 2 cap PO DAILY [facility] Stop: 09/18/22 08:59 Last Admin: 08/26/22 07:47 Dose: 2 cap Magnesium Hydroxide (Magnesium Hydroxide Susp 30 Ml Udc) 30 ml PO DAILY [facility] Stop: 09/16/22 13:14 Last Admin: 08/26/22 07:48 Dose: 30 ml Melatonin (Melatonin 3 Mg Tab) 3 mg PO HS PRN PRN Reason: Sleep Stop: 09/19/22 19:59 Last Admin: 08/22/22 21:40 Dose: 3 mg Metoprolol Tartrate (Metoprolol Tartrate 50 Mg Tab) 50 mg PO BID [facility] Stop: 09/16/22 08:59 Last Admin: 08/26/22 07:47 Dose: 50 mg Miscellaneous (Order Awaiting Action: Cyclosporine [Restasis] 0.05 % Dropperette) 1 each N/A QS [facility] Stop: 09/16/22 07:59 Last Admin: 08/25/22 08:54 Dose: Not Given Multi-Ingredient Cream (Eucerin Cr 120 Gm Jar) 1 appln EXT BID [facility] Stop: 09/20/22 10:44 Last Admin: 08/26/22 07:49 Dose: 1 appln Nitroglycerin (Nitroglycerin Sl 0.4 Mg/Tab Tab) 0.4 mg SL Q5M PRN PRN Reason: Chest Pain Stop: 09/16/22 00:39 Polyethylene Glycol (Polyethylene (Miralax) 17 Gm Pack) 17 gm PO DAILY PRN PRN Reason: Constipation Stop: 09/16/22 00:39 Polyethylene Glycol (Polyethylene (Miralax) 17 Gm Pack) 17 gm PO DAILY [facility] Stop: 09/16/22 12:59 Last Admin: 08/26/22 07:48 Dose: 17 gm Vitamin D (Cholecalciferol 1,000 Units 25 Mcg Tab) 1,000 units PO DAILY [facility] Stop: 09/16/22 08:59 Last Admin: 08/26/22 07:48 Dose: 1,000 units
[2022-08-26] MEDS: DAPTOmycin 250 MG in SYRINGE 0 ML IV SCH (17:07)
[2022-08-26] MEDS: MELATONIN 3 MG TAB PO PRN (20:33)
[2022-08-27] MEDS: ENOXAPARIN INJ 40 MG/0.4 ML SYR SQ SCH (05:07)
[2022-08-27] MEDS: ASPIRIN 81 MG CHEW PO SCH (09:16)
[2022-08-27] MEDS: ADVANCED PROBIOTIC 1250 MG CAPSULE PO SCH (09:16)
[2022-08-27] MEDS: METOPROLOL TARTRATE 50 MG TAB PO SCH ×2 (09:17→19:55)
[2022-08-27] MEDS: EUCERIN CR 120 GM JAR EXT SCH ×2 (09:17→20:07)
[2022-08-27] MEDS: CHOLECALCIFEROL 1,000 UNITS 25 MCG TAB PO SCH (09:17)
[2022-08-27] MEDS: CETIRIZINE HCL 10 MG TABLET PO SCH (09:17)
[2022-08-27] MEDS: POLYETHYLENE (MIRALAX) 17 GM PACK PO SCH (09:18)
[2022-08-27] MEDS: MAGNESIUM HYDROXIDE SUSP 30 ML UDC PO SCH (09:19)
--- NOTE | 2022-08-27 13:58 | Hospitalist Progress Note ---
Date of Service August 27, 2022 Assessment & Plan (1) Bilateral lower leg cellulitis: (2) Bilateral leg ulcer: Plan: Patient is a 77-year-old male was sent from his primary care office for bilateral lower extremity wounds. Wounds has been ongoing for last 1 year. Patient lives alone since his and has not seek any medical attention. He was brought to the hospital by his sister. X-ray in the ED shows possible osteomyelitis. MRI of both bilateral extremities were done.::No osteomyelitis within bilateral tibia/fibula. Extensive subcutaneous fluid and skin thickening within both legs. Also small amount of edema/fluid within the musculature in bilateral extremities could be due to edema/nonspecific myositis. Please see the picture of the legs for better understanding of the leg wounds and cellulitis Afebrile since admission. Leukocytosis present. 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, continue tubi health manager, no procedures recommended Appreciate ID input and recommendations Zosyn and vancomycin were discontinued Started on intravenous daptomycin 03/06 plan to d/c on Doxycycline upon discharge to complete 14 day course wound care consulted-appreciate input and recommendation Eucerin cream BID Clinically much better and was advised to keep the feet elevated whenever possible specially when sleeping Wound care as per the wound care nurse Awaiting to go to rehab on Monday Remains medically stable without any significant symptoms Bilateral cellulitis of the legs is much better, legs remains erythematous with a few crust but no drainage-strongly advised to keep the legs elevated even when sitting on a chair It may take a long time before any further improvement and the condition may get worse as well Echocardiogram was done for the lower extremity edema;EF of 55 to 60% with normal systolic function. Will try very small dose of Lasix to decrease edema of the legs Monitor PRP-remains stable No signs and or symptoms of fluid overload Noted to have reaction to vancomycin Given Zyrtec, Hydrocortisone cream, as needed Benadryl for upper extremity the rash, possible drug reaction question--> resolved Zyrtec x 1 week, then taper (3) Abdominal discomfort: (4) Constipation: Plan: Also reported abdominal discomfort on admission. CT abdomen and pelvis done; shows mild retroperitoneal, iliac and inguinal lymphadenopathy. Nonspecific. Follow-up CT recommended. Moderate fecal retention. bowel regimen with MiraLAX and milk of magnesia daily. -- resolved Plan Other chronic medical conditions; 1) History of brain mass: Status post surgery. Following with neurosurgery in [place]. He is getting serial MRI scans. 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 The patient looks like he is having some mild dementia. CT head without contrast is unremarkable. vitamin B12 level and TSH= normal On aspirin 325 mg; decreased to 81 mg daily. 2) History of hypertension: Continue Lopressor. 3) Hyperlipidemia: Not on any medications. Medical history of 66 and LDL of 93; continue dietary measures. 4) History of gout: Currently seems to be not on any medications. Seems to be on indomethacin in the past. Uric acid within normal limits. Monitor for now. 5). Deep venous thrombosis prophylaxis: Placed on Lovenox. Disposition PT/OT: transition to acute rehabilitation in 1-2 days Discussed with the family members Admission and Anticipated Discharge Date Admission Date: August 16, 2022 Subjective 08/24/2022 The patient was seen and examined in medical telemetry unit He has pain stable and remains generally weak and lethargic Leg wounds have been improving and the swelling is better too Denies any fever and or chills 08/25/2022 The patient was seen and examined in medical telemetry unit He has been feeling much better Denies any significant symptoms No fever and or chills and no pain in the legs 08/26/2021 The patient was seen and examined in medical telemetry unit He has been feeling much better Accepted to [facility] on Monday08/27/2022 The patient was seen and examined in medical telemetry unit Remained stable and denies any symptoms Reviewed bilateral leg wounds-much better but the redness persist Review of Systems Review of Systems: All systems reviewed and are unremarkable except as noted below Musculoskeletal: Bilateral leg wounds with cellulitis Neurologic: Generally weak and lethargic Physical Exam Physical Exam: Sitting on a chair without any acute distress Constitutional: well developed, well nourished, + ill appearing and + obese Eyes: PERRL, conjunctivae normal, anicteric sclerae ENMT: external ear and nose normal, oropharynx normal Neck: trachea midline, no thyromegaly Respiratory: no respiratory distress Auscultation: + diminished lung sounds and + crackles (Minimal bibasilar crackles) Cardiovascular: Rate/Rhythm: regular rate and regular rhythm; not tachycardic Heart Sounds: normal S1 and normal S2; no murmur Extremities: + edema (1+ edema bilaterally and associated with redness and crusting) Gastrointestinal (Abdomen): Inspection/Auscultation: normal bowel sounds; ab domen not distended Percussion/Palpation: abdomen soft; abdomen nontender Musculoskeletal: No acute arthritis involving any joint Skin: Bilateral leg wounds are noted and seem to be improving Neurologic: normal touch/pain/proprioception and moves all extremities; no focal motor deficits Psychiatric: A+Ox3, euthymic affect Lymphatic: no cervical or axillary lymphadenopathy Results & Data Results & Data ([facility]) Vital Signs (Past 12 Hours) Vital Signs Temp Pulse Pulse Resp BP Pulse Ox O2 Del Method 08/27/22 12:14 36.5 C 59 L 16 143/82 H 97 Room Air 08/27/22 08:00 Room Air 08/27/22 07:50 65 08/27/22 06:39 36.4 C L 68 18 128/74 99 Room Air 08/27/22 02:33 36.4 C L 59 L 18 144/68 H 97 Room Air Medications Administered Current Inpatient Medications Acetaminophen (Acetaminophen 325 Mg Tab) 650 mg PO Q4H PRN PRN Reason: Pain or Fever Stop: 09/16/22 00:39 Last Admin: 08/22/22 05:49 Dose: 650 mg Aspirin (Aspirin 81 Mg Chew) 81 mg PO DAILY [facility] Stop: 09/17/22 08:59 Last Admin: 08/27/22 09:16 Dose: 81 mg Cetirizine HCl (Cetirizine Hcl 10 Mg Tablet) 10 mg PO QAM [facility] Stop: 09/18/22 08:59 Last Admin: 08/27/22 09:17 Dose: 10 mg Diphenhydramine HCl (Diphenhydramine Capsule 25 Mg Cap) 25 mg PO Q6H PRN PRN Reason: Itching Stop: 09/19/22 11:36 Enoxaparin Sodium (Enoxaparin Inj 40 Mg/0.4 Ml Syr) 40 mg SQ Q24H [facility] Stop: 09/16/22 05:59 Last Admin: 08/27/22 05:07 Dose: 40 mg Hydrocortisone (Hydrocortisone 2.5% Cr 30 Gm Tube) 1 appln EXT Q6H PRN PRN Reason: Itching Stop: 09/19/22 11:42 Last Admin: 08/26/22 07:46 Dose: 1 appln Daptomycin 250 mg/ Syringe 5 mls @ 2.5 mls/min IV Q24H [facility]; Protocol Stop: 08/27/22 17:59 Last Admin: 08/26/22 17:07 Dose: 2.5 mls/min Lactobacillus Acidophilus (Advanced Probiotic 1250 Mg Capsule) 2 cap PO DAILY [facility] Stop: 09/18/22 08:59 Last Admin: 08/27/22 09:16 Dose: 2 cap Magnesium Hydroxide (Magnesium Hydroxide Susp 30 Ml Udc) 30 ml PO DAILY [facility] Stop: 09/16/22 13:14 Last Admin: 08/27/22 09:19 Dose: Not Given Melatonin (Melatonin 3 Mg Tab) 3 mg PO HS PRN PRN Reason: Sleep Stop: 09/19/22 19:59 Last Admin: 08/26/22 20:33 Dose: 3 mg Metoprolol Tartrate (Metoprolol Tartrate 50 Mg Tab) 50 mg PO BID [facility] Stop: 09/16/22 08:59 Last Admin: 08/27/22 09:17 Dose: 50 mg Miscellaneous (Order Awaiting Action: Cyclosporine [Restasis] 0.05 % Dropperette) 1 each N/A QS [facility] Stop: 09/16/22 07:59 Last Admin: 08/25/22 08:54 Dose: Not Given Multi-Ingredient Cream (Eucerin Cr 120 Gm Jar) 1 appln EXT BID [facility] Stop: 09/20/22 10:44 Last Admin: 08/27/22 09:17 Dose: 1 appln Nitroglycerin (Nitroglycerin Sl 0.4 Mg/Tab Tab) 0.4 mg SL Q5M PRN PRN Reason: Chest Pain Stop: 09/16/22 00:39 Polyethylene Glycol (Polyethylene (Miralax) 17 Gm Pack) 17 gm PO DAILY PRN PRN Reason: Constipation Stop: 09/16/22 00:39 Polyethylene Glycol (Polyethylene (Miralax) 17 Gm Pack) 17 gm PO DAILY [facility] Stop: 09/16/22 12:59 Last Admin: 08/27/22 09:18 Dose: Not Given Vitamin D (Cholecalciferol 1,000 Units 25 Mcg Tab) 1,000 units PO DAILY [facility] Stop: 09/16/22 08:59 Last Admin: 08/27/22 09:17 Dose: 1,000 units
--- NOTE | 2022-08-27 14:22 | Orthopedic Progress Note ---
Date of Service August 26, 2022 Assessment & Plan (1) Bilateral leg ulcer: Plan: Patient seen, evaluated, and treated. I evaluated Patient for leg ulcers that have been resistant to healing. Manners in which swelling could be reduced were investigated and initiated. We did discuss elevation of legs at all times when not ambulating. Dressing changed with out incident. Patient to continue in lower extremity tubi silk spotter for lower extremity compression. (2) Bilateral lower leg cellulitis: (3) Cellulitis: Admission and Anticipated Discharge Date Admission Date: August 16, 2022 Subjective Patient seen at chair side in no distress. He notes no complaints. Feet and legs are in dependent position. Review of Systems Review of Systems: All systems reviewed & are unremarkable except as noted in HPI & below Physical Exam Constitutional: cooperative and comfortable Respiratory: normal respiratory effort Cardiovascular: Rate/Rhythm: regular rate and regular rhythm Skin: Bilateral partial thickness leg ulcerations. Skin is thin, dry, flaky. Psychiatric: Orientation: alert, oriented to person, oriented to place and cooperative Lymphatic: Atrophic changes noted to skin secondary to lymphedema integument shows hyperpigmentation hyperkeratosis hyperplasia with papillomatosis and fibrosis. Results & Data ([facility]) Vital Signs (Past 12 Hours) Vital Signs Temp Pulse Pulse Resp BP Pulse Ox O2 Del Method 08/26/22 19:37 36.5 C 71 18 145/78 H 98 Room Air 08/26/22 16:49 36.5 C 58 L 19 105/61 98 Room Air 08/26/22 15:51 60 08/26/22 11:22 36.7 C 57 L 19 131/71 97 Room Air (1) Cellulitis Laterality: unspecified laterality Site of cellulitis: extremity Site of cellulitis of extremity: lower extremity Qualified Code(s): L03.119 - Cellulitis of unspecified part of limb
[2022-08-28] MEDS: ENOXAPARIN INJ 40 MG/0.4 ML SYR SQ SCH (05:57)
[2022-08-28 06:16] LABS: Basophils # (auto) 0.07 K/uL (0-0.2); Basophils % (auto) 0.8 %; Hematocrit (blood only) 37.9 % (42.0-52.0); Hemoglobin 12.7 g/dl (14.0-18.0); Immature Granulocytes # (auto) 0.07 K/uL (0.01-0.20); Immature Granulocytes % (auto) 0.8 %; Lymphocytes # (auto) 1.99 K/uL (1.2-3.4); Lymphocytes % (auto) 23.7 %; Mean Corpuscular Hemoglobin 28.9 pg (25.0-34.0); Mean Corpuscular Hgb Conc 33.5 g/dL (32.0-36.0); Mean Corpuscular Volume 86.1 fL (80.0-100.0); Monocytes # (auto) 0.79 K/uL (0.11-0.59); Monocytes % (auto) 9.4 %; Neutrophils # (auto) 4.97 K/uL (1.40-6.50); Neutrophils % (auto) 59.3 %; Platelet Count 338 K/uL (130-400); RDW Coefficient of Variation 13.1 % (11.5-14.5); RDW Standard Deviation 40.9 fL (36.4-46.3); White Blood Count 8.39 K/ul (4.8-10.8)
[2022-08-28 06:18] LABS: BUN Creatinine Ratio 24.1 (10-20); Calcium 9.7 mg/dl (8.5-10.1); Creatinine Clr Calc Pharmacy 46.1 ml/min; Est GFR (Non-African American) 62.1 ml/min
[2022-08-28] MEDS: METOPROLOL TARTRATE 50 MG TAB PO SCH ×2 (08:47→21:43)
[2022-08-28] MEDS: ADVANCED PROBIOTIC 1250 MG CAPSULE PO SCH (08:48)
[2022-08-28] MEDS: EUCERIN CR 120 GM JAR EXT SCH ×2 (08:48→21:45)
[2022-08-28] MEDS: CETIRIZINE HCL 10 MG TABLET PO SCH (08:49)
[2022-08-28] MEDS: CHOLECALCIFEROL 1,000 UNITS 25 MCG TAB PO SCH (08:49)
[2022-08-28] MEDS: MAGNESIUM HYDROXIDE SUSP 30 ML UDC PO SCH (08:49)
[2022-08-28] MEDS: ASPIRIN 81 MG CHEW PO SCH (08:49)
[2022-08-28] MEDS: POLYETHYLENE (MIRALAX) 17 GM PACK PO SCH (08:50)
--- NOTE | 2022-08-28 11:51 | Hospitalist Progress Note ---
Date of Service August 28, 2022 Assessment & Plan (1) Bilateral lower leg cellulitis: (2) Bilateral leg ulcer: Plan: Patient is a 77-year-old male was sent from his primary care office for bilateral lower extremity wounds. Wounds has been ongoing for last 1 year. Patient lives alone since his and has not seek any medical attention. He was brought to the hospital by his sister. X-ray in the ED shows possible osteomyelitis. MRI of both bilateral extremities were done.::No osteomyelitis within bilateral tibia/fibula. Extensive subcutaneous fluid and skin thickening within both legs. Also small amount of edema/fluid within the musculature in bilateral extremities could be due to edema/nonspecific myositis. Please see the picture of the legs for better understanding of the leg wounds and cellulitis Afebrile since admission. Leukocytosis present. 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, continue tubi ict help desk officer, no procedures recommended Appreciate ID input and recommendations Zosyn and vancomycin were discontinued Started on intravenous daptomycin 03/06 plan to d/c on Doxycycline upon discharge to complete 14 day course wound care consulted-appreciate input and recommendation Eucerin cream BID Clinically much better and was advised to keep the feet elevated whenever possible specially when sleeping Wound care as per the wound care nurse Remains medically stable without any significant symptoms Bilateral cellulitis of the legs is much better, legs remains erythematous with a few crust but no drainage-strongly advised to keep the legs elevated even when sitting on a chair Appreciate quality system manager input and recommendation Awaiting placement to be discharged on Monday Strongly advised to keep the legs elevated when possible We will start oral doxycycline for a few more days Echocardiogram was done for the lower extremity edema;EF of 55 to 60% with normal systolic function. Will try very small dose of Lasix to decrease edema of the legs Monitor PRP-remains stable No signs and or symptoms of fluid overload Noted to have reaction to vancomycin Given Zyrtec, Hydrocortisone cream, as needed Benadryl for upper extremity the rash, possible drug reaction question--> resolved Zyrtec x 1 week, then taper (3) Abdominal discomfort: (4) Constipation: Plan: Also reported abdominal discomfort on admission. CT abdomen and pelvis done; shows mild retroperitoneal, iliac and inguinal lymphadenopathy. Nonspecific. Follow-up CT recommended. Moderate fecal retention. bowel regimen with MiraLAX and milk of magnesia daily. -- resolved Plan Other chronic medical conditions; 1) History of brain mass: Status post surgery. Following with neurosurgery in [place]. He is getting serial MRI scans. 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 The patient looks like he is having some mild dementia. CT head without contrast is unremarkable. vitamin B12 level and TSH= normal On aspirin 325 mg; decreased to 81 mg daily. 2) History of hypertension: Continue Lopressor. 3) Hyperlipidemia: Not on any medications. Medical history of 66 and LDL of 93; continue dietary measures. 4) History of gout: Currently seems to be not on any medications. Seems to be on indomethacin in the past. Uric acid within normal limits. Monitor for now. 5). Deep venous thrombosis prophylaxis: Placed on Lovenox. Disposition PT/OT: transition to acute rehabilitation in 1-2 days Discussed with the family members Admission and Anticipated Discharge Date Admission Date: August 16, 2022 Subjective 08/24/2022 The patient was seen and examined in medical telemetry unit He has pain stable and remains generally weak and lethargic Leg wounds have been improving and the swelling is better too Denies any fever and or chills 08/25/2022 The patient was seen and examined in medical telemetry unit He has been feeling much better Denies any significant symptoms No fever and or chills and no pain in the legs 08/26/2021 The patient was seen and examined in medical telemetry unit He has been feeling much better Accepted to [facility] on Monday08/27/2022 The patient was seen and examined in medical telemetry unit Remained stable and denies any symptoms Reviewed bilateral leg wounds-much better but the redness persist 08/28/2022 The patient was seen and examined in medical telemetry unit He has been out of bed on a chair without any acute distress He denies any specific symptoms specially does not have any problem with the legs His edema has been improving and wound in the legs remains stable Review of Systems Review of Systems: All systems reviewed and are unremarkable except as noted below Musculoskeletal: Bilateral leg wounds with cellulitis Neurologic: Generally weak and lethargic Physical Exam Physical Exam: Sitting on a chair without any acute distress Constitutional: well developed, well nourished, + ill appearing and + obese Eyes: PERRL, conjunctivae normal, anicteric sclerae ENMT: external ear and nose normal, oropharynx normal Neck: trachea midline, no thyromegaly Respiratory: no respiratory distress Auscultation: + diminished lung sounds and + crackles (Minimal bibasilar crackles) Cardiovascular: Rate/Rhythm: regular rate and regular rhythm; not tachycardic Heart Sounds: normal S1 and normal S2; no murmur Extremities: + edema (1+ edema bilaterally and associated with redness and crusting) Gastrointestinal (Abdomen): Inspection/Auscultation: normal bowel sounds; abdomen not distended Percussion/Palpation: abdomen soft; abdomen nontender Musculoskeletal: No acute arthritis involving any joint Neurologic: normal touch/pain/proprioception and moves all extremities; no focal motor deficits Psychiatric: A+Ox3, euthymic affect Lymphatic: no cervical or axillary lymphadenopathy Results & Data Results & Data ([facility]) Vital Signs (Past 12 Hours) Vital Signs Temp Pulse Pulse Resp BP Pulse Ox O2 Del Method 08/28/22 08:00 Room Air 08/28/22 07:00 69 08/28/22 06:53 36.7 C 64 18 150/67 H 98 Room Air 08/28/22 03:40 36.5 C 80 18 145/82 H 100 Room Air 08/28/22 01:19 63 Laboratory Results Short CBC 08/28/22 Range/Units 05:35 WBC 8.39 (4.8-10.8) K/ul Hgb 12.7 L (14.0-18.0) g/dl Hct 37.9 L (42.0-52.0) % Plt Count 338 (130-400) K/uL BMP 08/28/22 05:35 Sodium 136 Potassium 4.0 Chloride 107 Carbon Dioxide 24 BUN 27 H Creatinine 1.12 Glucose 85 Calcium 9.7 Medications Administered Current Inpatient Medications Acetaminophen (Acetaminophen 325 Mg Tab) 650 mg PO Q4H PRN PRN Reason: Pain or Fever Stop: 09/16/22 00:39 Last Admin: 08/22/22 05:49 Dose: 650 mg Aspirin (Aspirin 81 Mg Chew) 81 mg PO DAILY [facility] Stop: 09/17/22 08:59 Last Admin: 08/28/22 08:49 Dose: 81 mg Cetirizine HCl (Cetirizine Hcl 10 Mg Tablet) 10 mg PO QAM [facility] Stop: 09/18/22 08:59 Last Admin: 08/28/22 08:49 Dose: 10 mg Diphenhydramine HCl (Diphenhydramine Capsule 25 Mg Cap) 25 mg PO Q6H PRN PRN Reason: Itching Stop: 09/19/22 11:36 Enoxaparin Sodium (Enoxaparin Inj 40 Mg/0.4 Ml Syr) 40 mg SQ Q24H [facility] Stop: 09/16/22 05:59 Last Admin: 08/28/22 05:57 Dose: Not Given Hydrocortisone (Hydrocortisone 2.5% Cr 30 Gm Tube) 1 appln EXT Q6H PRN PRN Reason: Itching Stop: 09/19/22 11:42 Last Admin: 08/26/22 07:46 Dose: 1 appln Lactobacillus Acidophilus (Advanced Probiotic 1250 Mg Capsule) 2 cap PO DAILY [facility] Stop: 09/18/22 08:59 Last Admin: 08/28/22 08:48 Dose: 2 cap Magnesium Hydroxide (Magnesium Hydroxide Susp 30 Ml Udc) 30 ml PO DAILY [facility] Stop: 09/16/22 13:14 Last Admin: 08/28/22 08:49 Dose: Not Given Melatonin (Melatonin 3 Mg Tab) 3 mg PO HS PRN PRN Reason: Sleep Stop: 09/19/22 19:59 Last Admin: 08/26/22 20:33 Dose: 3 mg Metoprolol Tartrate (Metoprolol Tartrate 50 Mg Tab) 50 mg PO BID [facility] Stop: 09/16/22 08:59 Last Admin: 08/28/22 08:47 Dose: 50 mg Miscellaneous (Order Awaiting Action: Cyclosporine [Restasis] 0.05 % Dropperette) 1 each N/A QS [facility] Stop: 09/16/22 07:59 Last Admin: 08/25/22 08:54 Dose: Not Given Multi-Ingredient Cream (Eucerin Cr 120 Gm Jar) 1 appln EXT BID [facility] Stop: 09/20/22 10:44 Last Admin: 08/28/22 08:48 Dose: Not Given Nitroglycerin (Nitroglycerin Sl 0.4 Mg/Tab Tab) 0.4 mg SL Q5M PRN PRN Reason: Chest Pain Stop: 09/16/22 00:39 Polyethylene Glycol (Polyethylene (Miralax) 17 Gm Pack) 17 gm PO DAILY PRN PRN Reason: Constipation Stop: 09/16/22 00:39 Polyethylene Glycol (Polyethylene (Miralax) 17 Gm Pack) 17 gm PO DAILY [facility] Stop: 09/16/22 12:59 Last Admin: 08/28/22 08:50 Dose: 17 gm Vitamin D (Cholecalciferol 1,000 Units 25 Mcg Tab) 1,000 units PO DAILY [facility] Stop: 09/16/22 08:59 Last Admin: 08/28/22 08:49 Dose: 1,000 units
[2022-08-28] MEDS: DOXYCYCLINE HYCLATE 100 MG CAP PO SCH ×2 (12:42→21:44)
[2022-08-29] MEDS: ENOXAPARIN INJ 40 MG/0.4 ML SYR SQ SCH (06:14)
[2022-08-29] MEDS: METOPROLOL TARTRATE 50 MG TAB PO SCH (08:27)
[2022-08-29] MEDS: ADVANCED PROBIOTIC 1250 MG CAPSULE PO SCH (08:27)
[2022-08-29] MEDS: ASPIRIN 81 MG CHEW PO SCH (08:27)
[2022-08-29] MEDS: MAGNESIUM HYDROXIDE SUSP 30 ML UDC PO SCH (08:27)
[2022-08-29] MEDS: DOXYCYCLINE HYCLATE 100 MG CAP PO SCH (08:27)
[2022-08-29] MEDS: EUCERIN CR 120 GM JAR EXT SCH (08:28)
[2022-08-29] MEDS: CHOLECALCIFEROL 1,000 UNITS 25 MCG TAB PO SCH (08:28)
[2022-08-29] MEDS: CETIRIZINE HCL 10 MG TABLET PO SCH (08:28)
[2022-08-29] MEDS: POLYETHYLENE (MIRALAX) 17 GM PACK PO SCH (08:29)
--- NOTE | 2022-08-29 10:02 | Hospitalist Progress Note ---
Date of Service August 29, 2022 Assessment & Plan (1) Bilateral lower leg cellulitis: (2) Bilateral leg ulcer: Plan: Patient is a 77-year-old male was sent from his primary care office for bilateral lower extremity wounds. Wounds has been ongoing for last 1 year. Patient lives alone since his and has not seek any medical attention. He was brought to the hospital by his sister. X-ray in the ED shows possible osteomyelitis. MRI of both bilateral extremities were done.::No osteomyelitis within bilateral tibia/fibula. Extensive subcutaneous fluid and skin thickening within both legs. Also small amount of edema/fluid within the musculature in bilateral extremities could be due to edema/nonspecific myositis. Please see the picture of the legs for better understanding of the leg wounds and cellulitis Afebrile since admission. Leukocytosis present. 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, no procedures recommended Appreciate ID input and recommendations Zosyn and vancomycin were discontinued Started on intravenous daptomycin 03/06 plan to d/c on Doxycycline upon discharge to complete 14 day course wound care consulted-appreciate input and recommendation Eucerin cream BID Clinically much better and was advised to keep the feet elevated whenever possible specially when sleeping Wound care as per the wound care nurse Remains medically stable without any significant symptoms Bilateral cellulitis of the legs is much better, legs remains erythematous with a few crust but no drainage-strongly advised to keep the legs elevated even when sitting on a chair Appreciate patient service associate input and recommendation Awaiting placement to be discharged on Monday Strongly advised to keep the legs elevated when possible We will start oral doxycycline for a few more days He remains stable without any fever and or chills-he [facility] He needs a course of antibiotic for a few more days History of brain mass with mild dementia as mentioned before He remains pleasantly confused Hello need to have an outpatient evaluation by the neurologist following discharge from the rehab facility Discussed with the family members We will need to follow-up with the neurosurgery in [place] Echocardiogram was done for the lower extremity edema;EF of 55 to 60% with normal systolic function. Will try very small dose of Lasix to decrease edema of the legs Monitor PRP-remains stable No signs and or symptoms of fluid overload Noted to have reaction to vancomycin Given Zyrtec, Hydrocortisone cream, as needed Benadryl for upper extremity the rash, possible drug reaction question--> resolved Zyrtec x 1 week, then taper (3) Abdominal discomfort: (4) Constipation: Plan: Also reported abdominal discomfort on admission. CT abdomen and pelvis done; shows mild retroperitoneal, iliac and inguinal lymphadenopathy. Nonspecific. Follow-up CT recommended. Moderate fecal retention. bowel regimen with MiraLAX and milk of magnesia daily. -- resolved Plan Other chronic medical conditions; 1) History of brain mass: Status post surgery. Following with neurosurgery in [place]. He is getting serial MRI scans. 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 The patient looks like he is having some mild dementia. CT head without contrast is unremarkable. vitamin B12 level and TSH= normal On aspirin 325 mg; decreased to 81 mg daily. No acute symptoms except mild dementia mentioned below 2) History of hypertension: Continue Lopressor. 3) Hyperlipidemia: Not on any medications. Medical history of 66 and LDL of 93; continue dietary measures. 4) History of gout: Currently seems to be not on any medications. Seems to be on indomethacin in the past. Uric acid within normal limits. Monitor for now. 5). Deep venous thrombosis prophylaxis: Placed on Lovenox. Disposition PT/OT: transition to acute rehabilitation in 1-2 days Discussed with the family members [facility] be [facility] to [facility] Admission and Anticipated Discharge Date Admission Date: August 16, 2022 Subjective 08/24/2022 The patient was seen and examined in medical telemetry unit He has pain stable and remains generally weak and lethargic Leg wounds have been improving and the swelling is better too Denies any fever and or chills 08/25/2022 The patient was seen and examined in medical telemetry unit He has been feeling much better Denies any significant symptoms No fever and or chills and no pain in the legs 08/26/2021 The patient was seen and examined in medical telemetry unit He has been feeling much better Accepted to [facility] on Monday08/27/2022 The patient was seen and examined in medical telemetry unit Remained stable and denies any symptoms Reviewed bilateral leg wounds-much better but the redness persist 08/28/2022 The patient was seen and examined in medical telemetry unit He has been out of bed on a chair without any acute distress He denies any specific symptoms specially does not have any problem with the legs His edema has been improving and wound in the legs remains stable 08/29/2022 The patient was seen and examined in medical telemetry unit He remains pleasantly confused but otherwise stable Denies any significant symptoms of pain, shortness of breath, chest pain, abdominal pain, nausea or vomiting No fever and no chills Review of Systems Review of Systems: All systems reviewed and are unremarkable except as noted below Musculoskeletal: Legs are bandaged bilaterally Physical Exam Physical Exam: Sitting on a chair without any acute distress Constitutional: well developed, well nourished, + ill appearing and + obese Eyes: PERRL, conjunctivae normal, anicteric sclerae ENMT: external ear and nose normal, oropharynx normal Neck: trachea midline, no thyromegaly Respiratory: no respiratory distress Auscultation: + diminished lung sounds and + crackles (Minimal bibasilar crackles) Cardiovascular: Rate/Rhythm: regular rate and regular rhythm; not tachycardic Heart Sounds: normal S1 and normal S2; no murmur Extremities: + edema (1+ edema bilaterally and associated with redness and crusting) Both the legs are bandaged Gastrointestinal (Abdomen): Inspection/Auscultation: normal bowel sounds; abdomen not distended Percussion/Palpation: abdomen soft; abdomen nontender Musculoskeletal: No acute arthritis involving any of the joint Neurologic: normal touch/pain/proprioception and moves all extremities; no focal motor deficits Psychiatric: A+Ox3, euthymic affect Lymphatic: no cervical or axillary lymphadenopathy Results & Data Results & Data ([facility]) Vital Signs (Past 12 Hours) Vital Signs Temp Pulse Pulse Resp BP Pulse Ox O2 Del Method 08/29/22 08:00 Room Air 08/29/22 07:58 37.0 C 79 16 111/79 98 Room Air 08/29/22 06:56 74 08/29/22 03:00 36.7 C 56 L 18 119/68 99 Room Air 08/28/22 22:00 36.8 C 68 20 133/71 98 Room Air 08/28/22 23:13 71 Medications Administered Current Inpatient Medications Acetaminophen (Acetaminophen 325 Mg Tab) 650 mg PO Q4H PRN PRN Reason: Pain or Fever Stop: 09/16/22 00:39 Last Admin: 08/22/22 05:49 Dose: 650 mg Aspirin (Aspirin 81 Mg Chew) 81 mg PO DAILY [facility] Stop: 09/17/22 08:59 Last Admin: 08/29/22 08:27 Dose: 81 mg Cetirizine HCl (Cetirizine Hcl 10 Mg Tablet) 10 mg PO QAM [facility] Stop: 09/18/22 08:59 Last Admin: 08/29/22 08:28 Dose: 10 mg Diphenhydramine HCl (Diphenhydramine Capsule 25 Mg Cap) 25 mg PO Q6H PRN PRN Reason: Itching Stop: 09/19/22 11:36 Doxycycline Hyclate (Doxycycline Hyclate 100 Mg Cap) 100 mg PO BID [facility]; Protocol Stop: 09/04/22 11:59 Last Admin: 08/29/22 08:27 Dose: 100 mg Enoxaparin Sodium (Enoxaparin Inj 40 Mg/0.4 Ml Syr) 40 mg SQ Q24H [facility] Stop: 09/16/22 05:59 Last Admin: 08/29/22 06:14 Dose: Not Given Hydrocortisone (Hydrocortisone 2.5% Cr 30 Gm Tube) 1 appln EXT Q6H PRN PRN Reason: Itching Stop: 09/19/22 11:42 Last Admin: 08/26/22 07:46 Dose: 1 appln Lactobacillus Acidophilus (Advanced Probiotic 1250 Mg Capsule) 2 cap PO DAILY [facility] Stop: 09/18/22 08:59 Last Admin: 08/29/22 08:27 Dose: 2 cap Magnesium Hydroxide (Magnesium Hydroxide Susp 30 Ml Udc) 30 ml PO DAILY [facility] Stop: 09/16/22 13:14 Last Admin: 08/29/22 08:27 Dose: 30 ml Melatonin (Melatonin 3 Mg Tab) 3 mg PO HS PRN PRN Reason: Sleep Stop: 09/19/22 19:59 Last Admin: 08/26/22 20:33 Dose: 3 mg Metoprolol Tartrate (Metoprolol Tartrate 50 Mg Tab) 50 mg PO BID [facility] Stop: 09/16/22 08:59 Last Admin: 08/29/22 08:27 Dose: 50 mg Miscellaneous (Order Awaiting Action: Cyclosporine [Restasis] 0.05 % Dropperette) 1 each N/A QS [facility] Stop: 09/16/22 07:59 Last Admin: 08/25/22 08:54 Dose: Not Given Multi-Ingredient Cream (Eucerin Cr 120 Gm Jar) 1 appln EXT BID [facility] Stop: 09/20/22 10:44 Last Admin: 08/29/22 08:28 Dose: Not Given Nitroglycerin (Nitroglycerin Sl 0.4 Mg/Tab Tab) 0.4 mg SL Q5M PRN PRN Reason: Chest Pain Stop: 09/16/22 00:39 Polyethylene Glycol (Polyethylene (Miralax) 17 Gm Pack) 17 gm PO DAILY PRN PRN Reason: Constipation Stop: 09/16/22 00:39 Polyethylene Glycol (Polyethylene (Miralax) 17 Gm Pack) 17 gm PO DAILY [facility] Stop: 09/16/22 12:59 Last Admin: 08/29/22 08:29 Dose: 17 gm Vitamin D (Cholecalciferol 1,000 Units 25 Mcg Tab) 1,000 units PO DAILY [facility] Stop: 09/16/22 08:59 Last Admin: 08/29/22 08:28 Dose: 1,000 units
--- NOTE | 2022-09-06 07:34 | Discharge Summary ---
Date of Service August 29, 2022 Admission HPI Per Admitting Provider DICTATED BY:Socrates Lee MD DATE OF ADMISSION: 08/16/2022. CHIEF COMPLAINT: Lower extremity wounds. HISTORY OF PRESENT ILLNESS: A 77-year-old male with past medical history signif icant for gout, dyslipidemia, hypertension, history of brain tumor, status post resection, history of gait abnormality. Lives alone, presents with lower extremity wounds. The patient currently seems like he is not taking care of himself since his 4 years ago, brought in by sisters. They went to PCP because of lower extremity swelling and seeping. The patient says this is going on for one year, but sister did not notice because he is covering them. PCP sent him to the ER. X-ray shows possible osteomyelitis. His white count is 11. Hemodynamically stable. Denies any pain. He is able to ambulate on those legs. He has complaint of some bilateral groin discomfort while lying in the bed and also there is some dry skin over the abdomen, possibly some mild swelling. Denies any chest pain, no shortness of breath, no cough, no difficulty swallowing. Appetite is okay. Has some mild headache. No blurred visions, no runny nose, no sore throat, no cough. Resting comfortably. Admission Exam Per Admitting Provider GENERAL: The patient is of moderate build, not in acute distress. VITAL SIGNS: Temperature 36.8, pulse 88, respiratory rate 20, blood pressure 136/78, oxygen 100% on room air. HEENT: Pupils equal, round and reactive to light. Oral mucosa moist. NECK: No JVD, no neck masses. CARDIOVASCULAR: S1 and S2 heard. Regular rate and rhythm. No murmur, no gallop. RESPIRATORY SYSTEM: Normal AP diameter. No accessory muscle use. No wheezing, no crackles. ABDOMEN: Soft, bowel sounds present. Possibly mild edema seen. Nontender. Dry skin. CENTRAL NERVOUS SYSTEM: Alert and oriented to name, place, and time. Could not subtract 7 from 100. Speech is clear. No facial droop. Obeys simple commands. Moves extremities. EXTREMITIES: Bilateral lower extremity erythematous chronic skin changes with some mild drainage. Principal Diagnosis Bilateral lower leg cellulitis, bilateral leg ulcers, Discharge Exam Sitting on a chair without any acute distress Constitutional well developed, well nourished, + ill appearing and + obese Eyes PERRL, conjunctivae normal, anicteric sclerae ENMT external ear and nose normal, oropharynx normal Neck trachea midline, no thyromegaly Respiratory no respiratory distress Auscultation: + diminished lung sounds and + crackles (Minimal bibasilar crackles) Cardiovascular Rate/Rhythm: regular rate and regular rhythm; not tachycardic Heart Sounds: normal S1 and normal S2; no murmur Extremities: + edema (1+ edema bilaterally and associated with redness and crusting) Gastrointestinal (Abdomen) Inspection/Auscultation: normal bowel sounds; abdomen not distended Percussion/Palpation: abdomen soft; abdomen nontender Neurologic normal touch/pain/proprioception and moves all extremities; no focal motor deficits Psychiatric A+Ox3, euthymic affect Lymphatic no cervical or axillary lymphadenopathy Discharge Data Allergies Allergy/AdvReac Type Severity Reaction Status Date / Time vancomycin Allergy Intermediate Rash Verified 08/22/22 12:34 minocycline Allergy Hives Verified 08/16/22 18:58 Tgynviv-EXD-UoA Reductase AdvReac Muscle Pain Verified 08/16/22 18:58 Inhibitor Consultations 08/16/22 19:19 ED Decision to Admit Stat 08/17/22 11:23 Consult Podiatry Routine 08/19/22 08:35 Consult Infectious Diseases Routine 08/19/22 11:40 Consult Behavioral Health Liaison Routine Ordered Studies 08/17/22 00:40 MR lower leg LT wo con Urgent 08/17/22 00:40 CT Abd and Pelvis [CT abd pelvis IV con only] Urgent CT head/brain wo con Urgent US venous doppler LE BI Urgent 08/17/22 00:49 MR lower leg RT wo con Routine Hospital Course (1) Bilateral lower leg cellulitis: (2) Bilateral leg ulcer: Patient is a 77-year-old male was sent from his primary care office for bilateral lower extremity wounds. Wounds has been ongoing for last 1 year. Patient lives alone since his and has not seek any medical attention. He was brought to the hospital by his sister. X-ray in the ED shows possible osteomyelitis. MRI of both bilateral extremities were done.::No osteomyelitis within bilateral tibia/fibula. Extensive subcutaneous fluid and skin thickening within both legs. Also small amount of edema/fluid within the musculature in bilateral extremities could be due to edema/nonspecific myositis. Please see the picture of the legs for better understanding of the leg wounds and cellulitis Afebrile since admission. Leukocytosis present. 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, no procedures recommended Appreciate ID input and recommendations Zosyn and vancomycin were discontinued Started on intravenous daptomycin 03/06 plan to d/c on Doxycycline upon discharge to complete 14 day course wound care consulted-appreciate input and recommendation Eucerin cream BID Clinically much better and was advised to keep the feet elevated whenever possible specially when sleeping Wound care as per the wound care nurse Remains medically stable without any significant symptoms Bilateral cellulitis of the legs is much better, legs remains erythematous with a few crust but no drainage-strongly advised to keep the legs elevated even when sitting on a chair Appreciate scuba instructor input and recommendation Awaiting placement to be discharged on Monday Strongly advised to keep the legs elevated when possible We will start oral doxycycline for a few more days He remains stable without any fever and or chills-he will be [facility] He needs a course of antibiotic for a few more days History of brain mass with mild dementia as mentioned before He remains pleasantly confused Hello need to have an outpatient evaluation by the neurologist following discharge from the rehab facility Discussed with the family members We will need to follow-up with the neurosurgery in [place] Echocardiogram was done for the lower extremity edema;EF of 55 to 60% with normal systolic function. Will try very small dose of Lasix to decrease edema of the legs Monitor PRP-remains stable No signs and or symptoms of fluid overload Noted to have reaction to vancomycin Given Zyrtec, Hydrocortisone cream, as needed Benadryl for upper extremity the rash, possible drug reaction question--> resolved Zyrtec x 1 week, then taper (3) Abdominal discomfort: (4) Constipation: Also reported abdominal discomfort on admission. CT abdomen and pelvis done; shows mild retroperitoneal, iliac and inguinal lymphadenopathy. Nonspecific. Follow-up CT recommended. Moderate fecal retention. bowel regimen with MiraLAX and milk of magnesia daily. -- resolved Plan Other chronic medical conditions; 1) History of brain mass: Status post surgery. Following with neurosurgery in [place]. He is getting serial MRI scans. His last MRI scan done in January 2022 shows stable appearance of the right precentral gyrus biopsy site with a d evelopmental venous anomaly. The patient looks like he is having some mild dementia. CT head without contrast is unremarkable. vitamin B12 level and TSH= normal On aspirin 325 mg; decreased to 81 mg daily. No acute symptoms except mild dementia mentioned below 2) History of hypertension: Continue Lopressor. 3) Hyperlipidemia: Not on any medications. Medical history of 66 and LDL of 93; continue dietary measures. 4) History of gout: Currently seems to be not on any medications. Seems to be on indomethacin in the past. Uric acid within normal limits. Monitor for now. 5). Deep venous thrombosis prophylaxis: Placed on Lovenox. Disposition PT/OT: transition to acute rehabilitation in 1-2 days Discussed with the family members Will be discharged to [facility] for rehab today Total Time Total Time Spent Total Time Spent (In Minutes): 35 minutes Discharge Plan Discharge Items Patient Disposition: Transfer Jail Fac Reason For Visit: LOWER EXTREMITY WOUNDS Discharge Diagnosis: Bilateral lower leg cellulitis, bilateral leg ulcers, Condition on Discharge: Good Activity: Resume your previous activity Non-emergency contact: Primary Care Provider Call non-emergency contact if: you have any medication questions and your symptoms worsen Follow-up/Referrals: Bryan Stinson MD [Primary Care Provider] - (Please make an appointment with your primary care care physician within 7 days following discharge from the facility) Diet: Heart Healthy Diet Texture: Easy to Chew Addtl Attending Provider Instructions: Please take precautions to avoid falls Take your medications as Please continue to dressing your legs as advised by the wound care You will need to have an appointment with outpatient neurologist for ongoing dementia Pending Studies at Discharge: No Stand-Alone Forms: My [facility] [employer] Skilled Items Patient informed of condition?: Yes DNR: No Discharge Level of Care: Skilled Communicable Disease: No Discharge Prognosis: Stable Lines: None Urinary Catheter: No Medications and DC Order Prescriptions: New aspirin [Children's Aspirin] 81 mg Tablet,Chewable 81 mg PO DAILY Qty: 30 0RF Dermacerin Cream 1 applic EXT BID Qty: 454 0RF Continued metoprolol tartrate 50 mg tablet 50 mg PO BID cyclosporine [Restasis] 0.05 % dropperette 1 drp ophthalmic (eye) [facility] cholecalciferol (vitamin D3) [Vitamin D3] 25 mcg (1,000 unit) Tablet 25 mcg PO DAILY Discontinued aspirin 325 mg tablet 325 mg PO QAM Discharge Orders: Discharge Order (Routine); Ordered 08/29/22 Ordered By: Chepe Isaac/Other Patient Handouts: Nutrition for Wound Healing, ED Cellulitis Admission Data Admit Date/Time: 08/16/22 21:31 Attending Provider: Chepe May Admit Provider: Socrates Lee Primary Care Provider: Bryan Stinson Other Providers: Socrates Lee ; Manoj Villalba ; Jackson Castillo ; Giancarlo Hyde ; Cyril Bruce ; Braden Kirkpatrick I. ; Chepe Steele II ; Berenice Alexander ; Kev Winston ; Evelio Phillips ; Franaz Byrnes ; [facility] ; Neftali Rahman Other Interventions: Discharge Summary Assessment (RN) Last Done: 08/29/22 10:34
== END 2022-08-29 11:50 | DRG 603 ==
LOC: ED 15:27 → SUATTDRO 21:31 → EDINP 21:31 → 2N 08-17 01:48